=== PATIENT | male | born 1975 | race Caucasian/White ===

== ENCOUNTER → 2018-04-11 | Outpatient (CLI) | payer OTHER | LOC: RT 12:42 | PROVIDERS: ATTEND Surgery | DX: Z02.71 Encounter for disability determination (principal) | CPT/HCPCS: 94060; 94729 ==

== ENCOUNTER → 2020-01-20 | Outpatient (CLI) | payer MEDICAID ==
[~2020-01-20] VITALS: Ht 177 cm; Wt 104.0 kg
[~2020-01-20] MED LIST: CATHETER FLUSH 10 ML SYR IV PRN; REGADENOSON 0.4 MG/5 ML SYR (LEXISCAN) IV ONE
[2020-01-20 09:06] VITALS: BP 117/74
--- NOTE | 2020-01-21 09:37 | STRESS TEST ---
DATE OF SERVICE: 01/20/2020 LEXISCAN MYOVIEW STRESS TEST REPORT REFERRING PHYSICIAN: Skip Lima MD Baseline heart rate 61, baseline blood pressure 114/76. Baseline EKG is sinus rhythm with no ischemic changes. In summary, the patient was injected with 10.96 mCi of technetium-99 Myoview and the resting images were obtained. Then, the patient received 0.4 mg of Lexiscan, followed by 30.2 mCi of technetium-99 Myoview. Throughout the test, there were no EKG changes. Occasional PVCs noted in recovery. The resting and stress images were reviewed and compared in the short axis, horizontal long axis, and vertical long axis views. Review of the images showed mild decreased uptake at the base of the inferior wall with no significant ischemia. SSS is 4, SDS 4, TID value 0.95. On the gated images, the left ventricle appeared to be normal size with mild hypokinesia. Calculated ejection fraction 39%. CONCLUSION: 1. The patient tolerated Lexiscan well. 2. Diaphragmatic attenuation with no significant ischemia or infarction on SPECT images. 3. Normal left ventricular size with mild diffuse left ventricular hypokinesia, calculated ejection fraction 39%. Job ID: [id number] DocumentID: [id number] Dictated Date: 01/20/2020 16:01:59 Disk Recoater Date: 01/20/2020 19:06:13 Dictated By: CIRO TAVERAS MD
== END ==
LOC: CARD 07:27
PROVIDERS: ATTEND Internal Medicine Cardiovascular Disease
DX: R07.9 Chest pain, unspecified (principal); I10 Essential (primary) hypertension; E78.5 Hyperlipidemia, unspecified; J98.6 Disorders of diaphragm
CPT/HCPCS: 78452; 93017

== ENCOUNTER → 2020-01-21 | Outpatient (CLI) | payer MEDICAID | LOC: CARD 11:07 | PROVIDERS: ATTEND Internal Medicine Cardiovascular Disease | DX: I10 Essential (primary) hypertension (principal); E78.5 Hyperlipidemia, unspecified; R07.9 Chest pain, unspecified | CPT/HCPCS: 93306 ==

== ENCOUNTER → 2021-02-27 | Outpatient (CLI) | payer MEDICAID ==
--- NOTE | 2021-02-27 11:57 | Diagnostic Imaging Report ---
INDICATION: Chronic bilateral knee pain. COMPARISON: None. FINDINGS: Multiple radiographic views of the bilateral knees were obtained and demonstrate no acute fracture or dislocation. No focal osseous lesions are seen. No significant joint effusion is seen. The surrounding soft tissue structures are unremarkable. There are no radiopaque foreign bodies. IMPRESSION: 1. Unremarkable radiographic exam of the bilateral knees. Dictated by: Dictated on workstation # [id number]
== END ==
LOC: RAD FS 10:37
PROVIDERS: ATTEND Nurse Practitioner
DX: M25.561 Pain in right knee (principal); M25.562 Pain in left knee

== ENCOUNTER → 2022-05-31 | Outpatient (CLI) | payer MEDICAID | LOC: CARDFS 07:47 | PROVIDERS: ATTEND Physician Assistant | DX: I11.9 Hypertensive heart disease without heart failure (principal) | CPT/HCPCS: 93306 ==

== ENCOUNTER → 2022-07-09 | Outpatient (CLI) | payer MEDICAID ==
[~2022-07-09] VITALS: Ht 177 cm; Wt 91.0 kg
[~2022-07-09] MED LIST changes: -CATHETER FLUSH 10 ML SYR IV PRN
[2022-07-09] MEDS: CATHETER FLUSH 10 ML SYR IVP PRN ×2 (07:49→09:09)
[2022-07-09 09:08] VITALS: BP 135/81
--- NOTE | 2022-07-09 11:52 | Cardiology Stress Test Report ---
Stress Test Report Date of Procedure/Referring: Date of Procedure: Jul 09, 2022 PCP Anatoly Lima MD Admitting Physician Admitting Physician: Attending Physician: Nicol Hughes Indications: HTN Baseline Heart Rate: 74 Baseline Blood Pressure: Blood Pressure Systolic: 135 Blood Pressure Diastolic: 81 Baseline Vitals Vital Signs Date Time Temp Pulse Resp B/P (MAP) Pulse Ox O2 Delivery O2 Flow Rate FiO2 07/09/22 09:08 79 16 135/81 (99) 95 Room Air Baseline EKG: Baseline EKG: NSR Summary After explaining the procedure to the patient, he signed a consent and then brought to the stress nuclear laboratory. Patient received 0.4 mg Lexiscan for stress test, ECG, heart rate and blood pressure were monitored continuously. Resting and stress dose of radio tracer were injected, imaging was acquired and reviewed in short axis, horizontal long axis and vertical long axis views. TID: 1.16 SSS: 7 SDS: 4 EF: 45 1. Patient tolerated Lexiscan well 2. Diaphragmatic attenuation with reversible ischemia involving the mid to apical inferior wall and inferoseptum. 3. Normal left ventricular size, mild hypokinesia of the inferior wall, ejection fraction 45% Copy Copies To 1: ANATOLY LIMA MD, BASHAR J MD Jul 09, 2022 11:52
== END ==
LOC: CARD 08:00
PROVIDERS: ATTEND Physician Assistant
DX: R07.9 Chest pain, unspecified (principal); I10 Essential (primary) hypertension
CPT/HCPCS: 78452; 93017

== ENCOUNTER 2022-07-25 09:00 | Day surgery (SDC) | payer MEDICAID ==
[~2022-07-25] VITALS: Ht 177.8 cm; Wt 99.5 kg
[2022-07-25] VITALS (9 sets, daily range): BP systolic 103–151; BP diastolic 72–93
[2022-07-25 07:59] LABS: HEMATOCRIT 44 % (40-54); HEMOGLOBIN 14.7 g/dL (13.3-17.7); MEAN CORPUSCULAR HEMOGLOBIN 30 pg (25-34); MEAN CORPUSCULAR HGB CONC 33 g/dL (32-36); MEAN CORPUSCULAR VOLUME 89 fL (80-99); MEAN PLATELET VOLUME 11.8 fL (9.0-12.2); PLATELET COUNT 210 10^3/uL (130-400); WHITE BLOOD COUNT 7.3 10^3/uL (4.3-11.0)
[2022-07-25 08:00] LABS: BILIRUBIN,URINE NEGATIVE (NEGATIVE); CLARITY,URINE CLEAR; COLOR,URINE YELLOW; GLUCOSE, URINE (UA) 3+ (NEGATIVE); KETONES,URINE 1+ (NEGATIVE); LEUKOCYTE ESTERASE ,URINE NEGATIVE (NEGATIVE); NITRITE,URINE NEGATIVE (NEGATIVE); PH,URINE 5.5 (5-9); PROTEIN,URINE NEGATIVE (NEGATIVE)
--- NOTE | 2022-07-25 08:06 | Diagnostic Imaging Report ---
Indication: Abnormal cardiac stress test Single AP view of chest is obtained. COMPARISON: No previous study is available for comparison at this time. FINDINGS: Heart size and pulmonary vasculature are within normal limits, and the lungs are clear, bilaterally. There is mild widening of the visible right acromioclavicular joint space. IMPRESSION: Unremarkable chest. Dictated by: Dictated on workstation # [id number]
[2022-07-25 08:15] LABS: BACTERIA,URINE NEGATIVE /HPF
[2022-07-25 08:17] LABS: INR 0.9 (0.8-1.4); PROTHROMBIN TIME PATIENT 12.4 SEC (12.2-14.7)
[2022-07-25 08:23] LABS: BILIRUBIN,TOTAL 0.5 MG/DL (0.1-1.0); CALCIUM 9.4 MG/DL (8.5-10.1); CREATININE SERUM 0.99 MG/DL (0.60-1.30); POTASSIUM 3.7 MMOL/L (3.6-5.0); TOTAL PROTEIN 7.4 GM/DL (6.4-8.2)
[~2022-07-25 09:00] MED LIST changes: +ALBU6.7H8 INH; +ASCO100024 PO; +ASPI-1238 PO; +ATOR10TA66 PO; +CANA1TAB8 PO; +CARV3.122 PO; +CHOL10007 PO; +CYCL10TA25 PO; +GARL10002 PO; +GLBR5T PO; +GLUC1VIA15 IJ; +HEParin (CATH LAB) 2,000 ML IV ONE; +HEParin 1000 UNIT/ML (10ML VIAL) FOR BOLUS ONE; +INSU3INS2 SQ; +LIDOCAINE 1% INJ 20 ML VIAL ONE; +MIDAZOLAM 5 MG/5 ML (VERSED) VIAL ONE; +MONT-40 PO; +NITRO DRIP 25000 MCG/D5W 250 ML IV ONE; +NS IV 1000 ML 1,000 ML IV SCH; +NS IV 1000 ML 1,000 ML ONE; -REGADENOSON 0.4 MG/5 ML SYR (LEXISCAN) IV ONE; +VERAPAMIL 5 MG/2 ML (CALAN) VIAL IV ONE; +fentaNYL INJ 100 MCG/2 ML AMP ONE
--- NOTE | 2022-07-25 09:17 | Cardiac Procedure Note-CS/ASA ---
Pre-Procedure Note Pre-Op Procedure Note Date of Available H&P: Jul 12, 2022 Date H&P Reviewed: Jul 25, 2022 Time H&P Reviewed: 09:16 History & Physical: H&P Reviewed, Patient Examed, No changes noted Pre-Operative Diagnosis: CAD Conscious Sedation Pre-Proced Time 09:17 ASA Score 3 For ASA 3 and 4: Consider anesthesia and medical clearance. Also, for patients with a history of failed moderate sedation consider anesthesia. Airway Lungs Heart ASA score ASA 1: a normal healthy patient ASA 2: a patient with a mild systemic disease (mid diabetes, controlled hypertension, obesity ASA 3: a patient with a severe systemic disease that limits activity (angina, COPD, prior Myocardial infarction) ASA 4: a patient with an incapacitating disease that is a constant threat to life (CHF, renal failure) ASA 5: a moribund patient not expected to survive 24 hrs. (ruptured aneurysm) ASA 6: a declared brain- patient whose organs are being harvested. For emergent operations, add the letter E after the classification Mallampati Classification Grade 3 Sedation Plan Analgesia, Amnesia, Plan communicated to team members, Discussed options with patient/fam, Discussed risks with patient/fam The patient is an appropriate candidate to undergo the planned procedure, sedation, and anesthesia. The patient immediately re-assessed prior to indication. CIRO TAVERAS MD Jul 25, 2022 09:17
[2022-07-25] MEDS ORDERED: ONDANSETRON 4 MG/2 ML (SDV) Z0FRAN ONE (10:01)
--- NOTE | 2022-07-25 10:11 | Discharge Inst-Post CATH ---
Discharge Inst-CATH/EP Problems Reviewed?: Yes Post Cardiac Cath/EP D/C Inst Follow Up/Plan Appointment with Dr. Goldman's office in 2 to 4 weeks <b>CARDIAC CATH/EP PROCEDURE DISCHARGE INSTRUCTIONS</b> ACTIVITY * Go Home directly and rest. * Limit activity of the leg (or wrist if it was used) for 7 days including aer obics, swimming, jogging, bicycling, etc. * Restrict stair-climbing for 7 days if possible, if not, climb up with your non-cath leg, then bring together on the same step. * Avoid lifting, pushing, pulling or excessive movement of the affected extremi ty for 7 days. * Customary sexual activity may be resumed after 2 days-use caution not to use a position that strains or causes pain to the affected extremity. * No driving for 24 hours. * NO SMOKING. * Avoid straining for bowel movements for 7 days. * Gentle walking on level ground is allowed. * Returning to work will depend on the type of procedure and the results. Your doctor will discuss this with you. CALL YOUR DOCTOR FOR ANY OF THE FOLLOWING: *If bleeding from the puncture site occurs- Apply gentle pressure to site with clean cloth and call your doctor or EMS. * If a knot or lump forms under the skin, increases in size, or causes pain. * If bruising appears to be worsening or moving further down your leg instead of disappearing. * Temperature above 101 F. CARE OF YOUR GROIN INCISION; * Bruising or purple discoloration of the skin near the puncture site is common. * You may shower only, no bathtub bathing for 5 days. Be careful to avoid slipping as your leg may feel stiff. * If a closure device was used on your femoral artery, please see the attached guide regarding care of the device and your leg. * Leave dressing on FOR 24 hours. CARE OF YOUR WRIST INCISION; * Bruising or purple discoloration of the skin near the puncture site is common. * You may shower. * DO NOT submerge wrist. * Leave dressing on FOR 24 hours. CIRO GOLDMAN MD Jul 25, 2022 10:11
[2022-07-25] MEDS ORDERED: NS IV 1000 ML 1,000 ML IV SCH (10:15)
--- NOTE | 2022-07-25 10:15 | Cardiac Cath Report ---
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 After explaining the procedure to the patient, all pros and cons were explained, all questions were answered. The patient signed the consent and then he was placed on the cardiac catheterization laboratory. Groin was prepped SL fashion local anesthesia was used. Sheath placed in the right radial artery, [place] catheter was used, I had difficulty advancing the catheter through the aortic arch, and advanced to the left ventricular cavity, pressure was measured then engage the left and right coronary system and angiogram was done. Due to the difficulty in the aortic arch I performed aortic arch angiogram. At the end of the procedure the sheath was removed. Vascular band was used FINDINGS: Hemodynamics LV 105/11, end-diastolic pressure of 11 Aorta 101/69 mean of 72 ANATOMY: Left Main is free of obstructive disease Left Anterior Descending has aneurysmal origin at the distal left main and ostium of the LAD and circumflex artery otherwise mild disease Left Circumflex has aneurysmal origin sharing the distal left main and LAD, mild disease distally Right Coronary Artery is dominant artery with mild disease nonobstructive disease LV Gram was not done, pressure was measured Aorta evaluation showed slightly prominent ascending aorta, no dissection, no aneurysm, normal origin of the brachiocephalic artery left carotid and left subclavian arteries CONCLUSION: 1. 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 Mild disease in the proximal right coronary artery otherwise nonobstructive disease 3. Normal left ventricular end-diastolic pressure 4. Slightly prominent ascending aorta otherwise no dissection or aneurysm DISCUSSION AND RECOMMENDATION: Continue to maximize medical therapy Anesthesia Type: Conscious Sedation Estimated blood loss (mL): 20 ml Contrast Amount: 39 ml Total Radiation Dose: 489 mGy Post-Procedure Diagnosis Post-operative diagnosis: Chest pain Coronary artery disease Hypertension Hyperlipidemia CIRO TAVERAS MD Jul 25, 2022 10:15
== END 2022-07-25 13:00 | disposition home or self-care (01) ==
LOC: CATH 09:00 → SDC 10:31 → CATH 13:00
PROVIDERS: ATTEND Internal Medicine Cardiovascular Disease
DX: I25.10 Atherosclerotic heart disease of native coronary artery without angina pectoris (principal); I10 Essential (primary) hypertension; E78.5 Hyperlipidemia, unspecified; Z79.899 Other long term (current) drug therapy
CPT/HCPCS: 36221; 36415; 71045; 80053; 80061; 81000; 85027; 85610; 85730; 87081; 93005; 93458

== ENCOUNTER → 2022-11-26 | Outpatient (CLI) | payer MEDICAID ==
[~2022-11-26] MED LIST changes: +ALBU6.7H13 INH; -ALBU6.7H8 INH; -HEParin (CATH LAB) 2,000 ML IV ONE; -HEParin 1000 UNIT/ML (10ML VIAL) FOR BOLUS ONE; -LIDOCAINE 1% INJ 20 ML VIAL ONE; -MIDAZOLAM 5 MG/5 ML (VERSED) VIAL ONE; -NITRO DRIP 25000 MCG/D5W 250 ML IV ONE; -NS IV 1000 ML 1,000 ML IV SCH; -NS IV 1000 ML 1,000 ML ONE; -VERAPAMIL 5 MG/2 ML (CALAN) VIAL IV ONE; -fentaNYL INJ 100 MCG/2 ML AMP ONE
--- NOTE | 2022-11-26 17:18 | Diagnostic Imaging Report ---
INDICATION: Chronic left knee pain. TECHNIQUE: AP, oblique, and lateral views of the left knee were obtained. FINDINGS: No fracture or acute bony abnormality is seen. Joint spaces are unremarkable. IMPRESSION: Negative left knee. Dictated by: Dictated on workstation # [id number]
== END ==
LOC: RAD FS 13:11
PROVIDERS: ATTEND Nurse Practitioner
DX: M25.562 Pain in left knee (principal)
CPT/HCPCS: 73562

== ENCOUNTER 2022-12-25 16:14 | Emergency (ER) | payer MEDICAID ==
[~2022-12-25] VITALS: Ht 177.8 cm; Wt 93.4 kg
[2022-12-25] MEDS ORDERED: ASPIRIN 81 MG CHEW (CHILDREN'S ASA) PO ONE (16:30)
[2022-12-25 16:35] LABS: BASOPHILS % (AUTO) 0 % (0-10); EOSINOPHILS # (AUTO) 0.1 10^3/uL (0.0-0.3); EOSINOPHILS % (AUTO) 1 % (0-10); HEMATOCRIT 46 % (40-54); HEMOGLOBIN 15.9 g/dL (13.3-17.7); LYMPHOCYTES # (AUTO) 2.6 10^3/uL (1.0-4.0); LYMPHOCYTES % (AUTO) 32 % (12-44); MEAN CORPUSCULAR HEMOGLOBIN 29 pg (25-34); MEAN CORPUSCULAR HGB CONC 35 g/dL (32-36); MEAN CORPUSCULAR VOLUME 84 fL (80-99); MEAN PLATELET VOLUME 11.8 fL (9.0-12.2); MONOCYTES # (AUTO) 0.5 10^3/uL (0.0-1.0); MONOCYTES % (AUTO) 6 % (0-12); NEUTROPHILS # (AUTO) 4.8 10^3/uL (1.8-7.8); NEUTROPHILS % (AUTO) 60 % (42-75); PLATELET COUNT 269 10^3/uL (130-400)
--- NOTE | 2022-12-25 16:44 | Diagnostic Imaging Report ---
EXAMINATION: Chest radiograph, portable AP view. DATE: 12/25/2022 4:40 PM INDICATION: 47-year-old male, chest pain and dizziness. COMPARISON: July 25, 2022. FINDINGS: Heart size and mediastinal contours are unchanged. There is no identified pneumothorax. There is no large pleural effusion. There is no identified focal airspace consolidation. IMPRESSION: 1. No identified acute cardiopulmonary abnormality. Dictated by: Dictated on workstation # [id number]
[2022-12-25] MEDS ORDERED: NITROGLYCERIN 0.4 MG SL TABS BTL 25'S SL PRN (16:45)
[2022-12-25 16:51] LABS: INR 0.8 (0.8-1.4); PROTHROMBIN TIME PATIENT 11.5 SEC (12.2-14.7)
[2022-12-25 16:52] LABS: BUN/CREATININE RATIO 24; CALCIUM 10.6 MG/DL (8.5-10.1); CARBON DIOXIDE 23 MMOL/L (21-32); CHLORIDE 93 MMOL/L (98-107); CREATININE SERUM 0.95 MG/DL (0.60-1.30); GFR ESTIMATED 98; GLUCOSE 361 MG/DL (70-105); POTASSIUM 4.5 MMOL/L (3.6-5.0); SODIUM 133 MMOL/L (135-145)
[2022-12-25 16:53] LABS: ALANINE AMINOTRANSFERASE 14 U/L (0-55); ALBUMIN 4.8 GM/DL (3.2-4.5); ALKALINE PHOSPHATASE 81 U/L (40-136); BILIRUBIN,TOTAL 0.3 MG/DL (0.1-1.0); TOTAL PROTEIN 8.1 GM/DL (6.4-8.2)
[2022-12-25] MEDS ORDERED: NS IV 1000 ML 1,000 ML IV SCH (17:00)
--- NOTE | 2022-12-25 17:06 | ED Chest Pain ---
General Chief Complaint: Chest Pain Stated Complaint: CHEST PAIN, SOB , BLURRED VISION Nursing Triage Note: Patient states he was loading a shed today and began having sternal chest pain, shortness of breath, and became lightheaded. He reports he had an UT 4 years ago, but did not have any stents placed. He states he had a clean heart cath 4 months ago. He states he had a respiratory illness last week, but feels as though that is improving. He states he is a poorly controlled insulin dependent diabetic. History of Present Illness Date Seen by Provider: Dec 25, 2022 Time Seen by Provider: 16:20 Initial Comments 47-year-old male with PMH of CAD with normal 5 years ago and also [address] Goldman/DM2, uncontrolled (hemoglobin A1c was 11 last he checked), is here with complaints of chest pain, SOB, and lightheadedness which began a little while ago while he was moving a shed. Patient did not take any aspirin or nitro when this occurred. Patient states that his pain is a 8/10 and is constant and retrosternal, and nonradiating. Patient is able to speak in clear sentences without any issues. Denies abdominal pain, diarrhea, dysuria, constipation, palpitations. Patient has been feeling ill the past few days as well and feeling a little under the weather as per patient. Allergies and Home Medications Allergies Coded Allergies: No Known Drug Allergies (Unverified , 07/25/22) Patient Home Medication List Home Medication List Reviewed: Yes Albuterol Sulfate (Proventil Hfa) 90 Mcg Hfa.aer.ad, 2 PUFF INH PRN, (Reported) Entered as Reported by: FALLON MONTOYA on 07/25/22 0807 Ascorbic Acid (Vitamin C) 1,000 Mg Tablet, 1,000 MG PO DAILY, (Reported) Entered as Reported by: FALLON MONTOYA on 07/25/22 0807 Aspirin (Aspirin EC) 81 Mg Tablet.dr, 81 MG PO DAILY, (Reported) Entered as Reported by: FALLON MONTOYA on 07/25/22 0807 Atorvastatin Calcium (Atorvastatin Calcium) 10 Mg Tablet, 10 MG PO HS, (Reported) Entered as Reported by: FALLON MONTOYA on 07/25/22 0807 Canagliflozin/Metformin HCl (Invokamet Xr 150-1,000 mg Tab) 150 Mg-1,000 Mg Tab.bp.24h, 2 EACH PO DAILY, (Reported) Entered as Reported by: FALLON MONTOYA on 07/25/22806 Carvedilol (Carvedilol) 3.125 Mg Tablet, 3.125 MG PO BID, (Reported) Entered as Reported by: FALLON MONTOYA on 07/25/22806 Cholecalciferol (Vitamin D3) (Vitamin D3) 25 Mcg (1000 Unit) Capsule, 25 MCG PO DAILY, (Reported) Entered as Reported by: FALLON MONTOYA on 07/25/22806 Cyclobenzaprine HCl (Cyclobenzaprine HCl) 10 Mg Tablet, 10 MG PO TID PRN for PRN, (Reported) Entered as Reported by: FALLON MONTOYA on 07/25/22806 Garlic (Garlic) 1,000 Mg Capsule, 1,000 MG PO DAILY, (Reported) Entered as Reported by: FALLON MONTOYA on 07/25/22806 Glucagon HCl (Glucagon Emergency Kit) 1 Mg Vial, 1 MG IJ PRN PRN for HYPOGLYCEMIA, (Reported) Entered as Reported by: FALLON MONTOYA on 07/25/22806 Glyburide (Glyburide) 5 Mg Tablet, 10 MG PO DAILY, (Reported) Entered as Reported by: FALLON MONTOYA on 07/25/22806 Insulin Glargine/Lixisenatide (Soliqua 100 Unit-33 Mcg/ml Pen) 100 Unit-33 Mcg/Ml (3 Ml) Insuln.pen, 28 ML SQ DAILY, (Reported) Entered as Reported by: FALLON MONTOYA on 07/25/22806 Montelukast Sodium (Montelukast Sodium) 10 Mg Tablet, 10 MG PO DAILY, (Reported) Entered as Reported by: FALLON MONTOYA on 07/25/22806 Review of Systems Review of Systems Constitutional: no symptoms reported, malaise EENTM: No Symptoms Reported Respiratory: Shortness of Air, SOA With Exertion Cardiovascular: Chest Pain, Lightheadedness Gastrointestinal: No Symptoms Reported Genitourinary: No Symptoms Reported Musculoskeletal: no symptoms reported Skin: no symptoms reported Psychiatric/Neurological: No Symptoms Reported Endocrine: No Symptoms Reported Hematologic/Lymphatic: No Symptoms Reported Past Tqmxnbm-Msejjc-Ienixm Hx Patient Social History Tobacco Use?: No Substance use?: No Alcohol Use?: No Pt feels they are or have been: No Past Medical History Surgery/Hospitalization HX: UT, DM, "lung problem" Appendectomy Currently Using CPAP: No High Cholesterol, Hypertension Physical Exam Vital Signs Vital Signs - First Documented 12/25/22 16:22 Temp 36.7 Pulse 75 Resp 15 B/P (MAP) 131/79 (96) Pulse Ox 100 O2 Delivery Room Air Capillary Refill : Less Than 3 Seconds Height, Weight, BMI Height: '" Weight: lbs. oz. kg; 29.00 BMI Method: General Appearance: Anxious, Mild Distress HEENT: PERRL/EOMI Neck: Full Range of Motion Respiratory: Chest Non Tender, Lungs Clear, Normal Breath Sounds, No Accessory Muscle Use Cardiovascular: Regular Rate, Rhythm, No Edema Gastrointestinal: Normal Bowel Sounds, Non Tender, Soft Extremity: Normal Range of Motion Neurologic/Psychiatric: Alert, Oriented x3, No Motor/Sensory Deficits, Normal Mood/Affect, it risk analyst II-XII Norm as Tested Skin: Normal Color Progress/Results/Core Measures Results/Orders Lab Results Laboratory Tests Test 12/25/22 16:20 12/25/22 16:25 12/25/22 17:40 12/25/22 18:10 Range/Units White Blood Count 8.0 4.3-11.0 10^3/uL Red Blood Count 5.48 4.30-5.52 10^6/uL Hemoglobin 15.9 13.3-17.7 g/dL Hematocrit 46 40-54 % Mean Corpuscular Volume 84 80-99 fL Mean Corpuscular Hemoglobin 29 25-34 pg Mean Corpuscular Hemoglobin Concent 35 32-36 g/dL Red Cell Distribution Width 12.7 10.0-14.5 % Platelet Count 269 130-400 10^3/uL Mean Platelet Volume 11.8 9.0-12.2 fL Immature Granulocyte % (Auto) 1 % Neutrophils (%) (Auto) 60 42-75 % Lymphocytes (%) (Auto) 32 12-44 % Monocytes (%) (Auto) 6 0-12 % Eosinophils (%) (Auto) 1 0-10 % Basophils (%) (Auto) 0 0-10 % Neutrophils # (Auto) 4.8 1.8-7.8 10^3/uL Lymphocytes # (Auto) 2.6 1.0-4.0 10^3/uL Monocytes # (Auto) 0.5 0.0-1.0 10^3/uL Eosinophils # (Auto) 0.1 0.0-0.3 10^3/uL Basophils # (Auto) 0.0 0.0-0.1 10^3/uL Immature Granulocyte # (Auto) 0.0 0.0-0.1 10^3/uL Prothrombin Time 11.5 L 12.2-14.7 SEC INR Comment 0.8 0.8-1.4 Activated Partial Thromboplast Time 23 L 24-35 SEC D-Dimer 0.43 0.00-0.49 UG/ML Sodium Level 133 L 135-145 MMOL/L Potassium Level 4.5 3.6-5.0 MMOL/L Chloride Level 93 L 98-107 MMOL/L Carbon Dioxide Level 23 21-32 MMOL/L Anion Gap 17 H 5-14 MMOL/L Blood Urea Nitrogen 23 H 7-18 MG/DL Creatinine 0.95 0.60-1.30 MG/DL Estimat Glomerular Filtration Rate 98 BUN/Creatinine Ratio 24 Glucose Level 361 H 70-105 MG/DL Calcium Level 10.6 H 8.5-10.1 MG/DL Corrected Calcium 8.5-10.1 MG/DL Magnesium Level 2.0 1.6-2.4 MG/DL Total Bilirubin 0.3 0.1-1.0 MG/DL Aspartate Amino Transf (AST/SGOT) 11 5-34 U/L Alanine Aminotransferase (ALT/SGPT) 14 0-55 U/L Alkaline Phosphatase 81 40-136 U/L Troponin I < 0.30 <0.30 NG/ML Pro-B-Type Natriuretic Peptide 30.5 <125.0 PG/ML Total Protein 8.1 6.4-8.2 GM/DL Albumin 4.8 H 3.2-4.5 GM/DL Influenza Type A (RT-PCR) Not Detected Not Detecte Influenza Type B (RT-PCR) Not Detected Not Detecte SARS-CoV-2 RNA (RT-PCR) Detected H Not Detecte Urine Color YELLOW Urine Clarity CLEAR Urine pH 6.0 5-9 Urine Specific [place] <=1.005 1.016-1.022 Urine Protein NEGATIVE NEGATIVE Urine Glucose (UA) 3+ H NEGATIVE Urine Ketones 1+ H NEGATIVE Urine Nitrite NEGATIVE NEGATIVE Urine Bilirubin NEGATIVE NEGATIVE Urine Urobilinogen 0.2 < = 1.0 MG/DL Urine Leukocyte Esterase NEGATIVE NEGATIVE Urine RBC (Auto) NEGATIVE NEGATIVE Urine RBC NONE /HPF Urine WBC RARE /HPF Urine Squamous Epithelial Cells RARE /HPF Urine Crystals NONE /LPF Urine Bacteria NEGATIVE /HPF Urine Casts NONE /LPF Urine Mucus NEGATIVE /LPF Urine Culture Indicated NO Urine Opiates Screen NEGATIVE NEGATIVE Urine Oxycodone Screen NEGATIVE NEGATIVE Urine Methadone Screen NEGATIVE NEGATIVE Urine Propoxyphene Screen NEGATIVE NEGATIVE Urine Barbiturates Screen NEGATIVE NEGATIVE Ur Tricyclic Antidepressants Screen NEGATIVE NEGATIVE Urine Phencyclidine Screen NEGATIVE NEGATIVE Urine Amphetamines Screen NEGATIVE NEGATIVE Urine Methamphetamines Screen NEGATIVE NEGATIVE Urine Benzodiazepines Screen NEGATIVE NEGATIVE Urine Cocaine Screen NEGATIVE NEGATIVE Urine Cannabinoids Screen NEGATIVE NEGATIVE My Orders Orders - ANUJA NICOLE MD Cbc With Automated Diff (12/25/22 16:16) Magnesium (12/25/22 16:16) Comprehensive Metabolic Panel (12/25/22 16:16) Protime With Inr (12/25/22 16:16) Partial Thromboplastin Time (12/25/22 16:16) Fibrin Degradation Products (12/25/22 16:16) Troponin I Fs (12/25/22 16:16) Probnp Fs (12/25/22 16:16) Drug Screen Stat (Urine) (12/25/22 16:17) Ua Culture If Indicated (12/25/22 16:17) Chest 1 View Ap/Pa Only (12/25/22 16:16) Ekg Tracing (12/25/22 16:16) O2 (12/25/22 16:16) Monitor-Rhythm Ecg Trace Only (12/25/22 16:16) Aspirin Chewable Tablet (Baby Aspirin Ch (12/25/22 16:30) Ed Iv/Invasive Line Start (12/25/22 16:16) Nitroglycerin 0.4 Mg Btl 25's (Nitrostat (12/25/22 16:45) Ed Iv/Invasive Line Start (12/25/22 16:51) Ns Iv 1000 Ml (Sodium Chloride 0.9%) (12/25/22 17:00) Covid 19 Inhouse Test (12/25/22 17:07) Influenza A And B By Pcr (12/25/22 17:07) Troponin I Fs (12/25/22 17:39) Ekg Tracing (12/25/22 17:39) Medications Given in ED Current Medications Medications Dose Ordered Sig/Simón Route Start Time Stop Time Status Last Admin Dose Admin Aspirin 324 mg ONCE ONCE PO 12/25/22 16:30 12/25/22 16:31 DC 12/25/22 16:40 324 MG Nitroglycerin 0.4 mg UD PRN SL 12/25/22 16:45 12/25/22 16:39 0.4 MG Vital Signs/I&O 12/25/22 16:22 Temp 36.7 Pulse 75 Resp 15 B/P (MAP) 131/79 (96) Pulse Ox 100 O2 Delivery Room Air Blood Pressure Mean: 96 Progress Progress Note : Progress Note Patient is leaving AMA. Risks and benefits explained to patient. Patient states that he has a doctor's appointment tomorrow at [facility] and if he develops chest pain again he will go straight to [facility] or tomorrow. Patient refuses to be transferred/admitted to [facility] at this moment. Patient's chest pain has completely resolved 1. COVID POSITIVE: - COVID Test positive - Rapid Flu Test negative - d-dimer normal 2. CHEST PAIN: ACS RULE OUT: - CXR: No acute findings - TROPONIN:x2 undetectable - BNP: normal - CBC: unremarkable - CMP: s. 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 Chest pain may likely be induced/ triggered by COVID . Discussed with hospitalist and accepted for admission, however pt wants to leave AMA Initial ECG Impression Date: Dec 25, 2022 Initial ECG Impression Time: 16:17 Initial ECG Rate: 72 Initial ECG Rhythm: Normal Sinus Initial ECG Intervals: Normal Initial ECG Impression: Nonspecific Changes Initial ECG Comparisson: No Previous ECG Available Diagnostic Imaging Diagonstic Imaging: Xray Plain Films/CT/US/NM/MRI: chest Comments [facility] [place], [place] NAME: ANGELA BENSON [facility] REC#: [id number] PT STATUS: REG ER : 1975 PHYSICIAN: ANUJA NICOLE MD ADMIT DATE: 12/25/22/ER FS Draft Date of Exam:12/25/22 CHEST 1 VIEW AP/PA ONLY EXAMINATION: Chest radiograph, portable AP view. DATE: 12/25/2022 4:40 PM INDICATION: 47-year-old male, chest pain and dizziness. COMPARISON: July 25, 2022. FINDINGS: Heart size and mediastinal contours are unchanged. There is no identified pneumothorax. There is no large pleural effusion. There is no identified focal airspace consolidation. IMPRESSION: 1. No identified acute cardiopulmonary abnormality. Dictated on workstation # [id number] Dict: 12/25/22 1641 Trans: 12/25/22 164 [facility] [id number] Interpreted by: TAMIR PAGE MD Electronically signed by: Departure Communication (Admissions) Time/Spoke to Admitting Phy: 18:[address] Watson, hospitalist and accepted for admission however patient is leaving AMA Impression Primary Impression: SARS-CoV-2 positive Additional Impression: Chest pain Disposition: AGAINST MEDICAL ADVICE Condition: Against Medical Advice Admissions Decision to Admit Reason: Admit from ER (General) Decision to Admit/Date: Dec 25, 2022 Time/Decision to Admit Time: 18:20 Departure-Patient Inst. Referrals: ANATOLY REECE MD (PCP) Primary Care Physician ANUJA NICOLE MD Dec 25, 2022 17:06
[2022-12-25 18:01] LABS: BILIRUBIN,URINE NEGATIVE (NEGATIVE); CLARITY,URINE CLEAR; COLOR,URINE YELLOW; GLUCOSE, URINE (UA) 3+ (NEGATIVE); KETONES,URINE 1+ (NEGATIVE); LEUKOCYTE ESTERASE ,URINE NEGATIVE (NEGATIVE); NITRITE,URINE NEGATIVE (NEGATIVE); PROTEIN,URINE NEGATIVE (NEGATIVE)
[2022-12-25 18:14] LABS: BACTERIA,URINE NEGATIVE /HPF; SQUAMOUS EPITHELIAL CELL,UR RARE /HPF; WBC,URINE RARE /HPF
[2022-12-25 18:15] LABS: AMPHETAMINE SCREEN, URINE NEGATIVE (NEGATIVE); BARBITURATE SCREEN URINE NEGATIVE (NEGATIVE); BENZODIAZEPINES SCREEN URINE NEGATIVE (NEGATIVE); CANNABINOID SCREEN, URINE NEGATIVE (NEGATIVE); COCAINE SCREEN URINE NEGATIVE (NEGATIVE); METHADONE STAT NEGATIVE (NEGATIVE); OPIATE SCREEN URINE NEGATIVE (NEGATIVE); OXYCODONE STAT NEGATIVE (NEGATIVE); PROPOXYPHENE STAT NEGATIVE (NEGATIVE); TRICYCLIC ANTIDEPRESSANTS SCRE NEGATIVE (NEGATIVE)
[2022-12-25 19:30] VITALS: BP 101/65
== END 2022-12-25 19:30 | disposition left against medical advice (07) ==
LOC: EDUNIT# 16:14 → ER FS 16:17
DX: U07.1 COVID-19 (principal); R07.9 Chest pain, unspecified; E11.65 Type 2 diabetes mellitus with hyperglycemia
CPT/HCPCS: 36415; 71045; 80053; 80306; 81000; 83735; 83880; 84484; 85025; 85379; 85610; 85730; 87636; 93005; 93041

== ENCOUNTER 2023-07-24 05:53 | Outpatient (CLI) | payer MEDICAID ==
[~2023-07-24] VITALS: Ht 177.8 cm; Wt 95.5 kg
[2023-07-25] MEDS ORDERED: LISI10TA25 PO (13:20)
[2023-07-25] MEDS ORDERED: PANT40GR PO (13:20)
[2023-07-25] MEDS ORDERED: MELO7.5T46 PO (13:20)
== END 2023-07-25 13:42 | disposition home or self-care (01) ==
LOC: PREOP 05:53
PROVIDERS: ATTEND Orthopaedic Surgery
DX: Z01.818 Encounter for other preprocedural examination (principal)

== ENCOUNTER 2023-07-31 08:09 | Day surgery (SDC) | payer MEDICAID ==
--- NOTE | 2023-07-24 14:41 | HISTORY AND PHYSICAL ---
DATE OF SERVICE: 07/31/2023 ADMISSION HISTORY AND PHYSICAL This will be for outpatient surgery on 07/31/2023 for left knee arthroscopy. HISTORY: The patient is a 48-year-old gentleman with complaints of left anterior and medial knee pain, catching, locking and swelling. He reports pain with kneeling and squatting. He reports pain with twisting. He underwent an MRI which showed posterior horn medial meniscus tear. Due to functional impairment and failure to improve with conservative measures, the patient has elected to proceed with surgical intervention. REVIEW OF SYSTEMS: No chest pain. No shortness of breath. No dysuria. PAST MEDICAL HISTORY: Osteoarthritis, type 2 diabetes, cardiomyopathy and dyspnea. PAST SURGICAL HISTORY: Sinus, appendectomy and cholecystectomy. FAMILY HISTORY: Noncontributory. SOCIAL HISTORY: The patient is a current smoker. ALLERGIES: No known drug allergies. PHYSICAL EXAMINATION: GENERAL: The patient is well-developed, well-nourished, in no acute distress. HEENT: Normocephalic, atraumatic. Pupils equal, round and reactive to light. Oropharynx is clear. NECK: Supple. No lymphadenopathy. LUNGS: Clear to auscultation bilaterally. HEART: Regular rate and rhythm. ABDOMEN: Soft, nontender and nondistended. EXTREMITIES: The left knee demonstrates patellofemoral crepitus and pain with patellar loading. He is tender along his medial joint line and has pain medially with Cate's. No varus or valgus laxity. Negative anterior and posterior drawer. 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 PLAN: Left knee arthroscopy with partial medial meniscectomy and chondroplasty. The risks, benefits, options, ramifications and recovery have been discussed at length with the patient. He understands and wishes to proceed. Job ID: [id number] DocumentID: [id number] Dictated Date: 07/12/2023 13:03:55 Dispatcher Motor Vehicle Date: 07/12/2023 15:09:00 Dictated By: JOSE LIMON MD
[2023-07-31] VITALS (10 sets, daily range): BP systolic 88–129; BP diastolic 48–91
[~2023-07-31] VITALS: Ht 177.8 cm; Wt 95.5 kg
[~2023-07-31 08:09] MED LIST changes: +HYDROcodone/ACETAMINOPHEN 7.5 MG/325 MG TABLET PO PRN; +LISI10TA25 PO; +MELO7.5T46 PO; +PANT40GR PO
[2023-07-31] MEDS ORDERED: ceFAZolin INJECTION 2,000 MG in NS (IVPB) 50 ML 50 ML IV ONE (08:15)
[2023-07-31] MEDS ORDERED: LACTATED RINGERS 1,000 ML 1,000 ML IV PRN (08:15)
--- NOTE | 2023-07-31 09:12 | Progress Note-Pre Operative ---
Pre-Operative Progress Note Date of Available H&P: Jul 24, 2023 Date H&P Reviewed: Jul 31, 2023 Time H&P Reviewed: 09:11 Changes from last HP none Pre-Operative Diagnosis: left knee medial meniscal tear and chondromalacia JOSE LIMON MD Jul 31, 2023 09:12
--- NOTE | 2023-07-31 09:14 | Progress Note-Post Operative ---
Post-Operative Progess Note Surgeon (s)/Manager Commercial Sales (s) Surgeon JOSE LIMON MD Manager Commercial Sales: Goldy Smiley Pre-Operative Diagnosis left knee medial meniscal tear and chondromalacia Post-Operative Diagnosis left knee chondromalacia of the medial femoral condyle and patella Procedure & Operative Findings Date of Procedure 07/31/23 Procedure Performed/Findings left knee arthroscopic chondroplasty of the medial femoral condyle and patella Anesthesia Type GETA Estimated Blood Loss Estimated blood loss (mL): minimal Specimens/Packing Specimens Removed none Packing: none JOSE LIMON MD Jul 31, 2023 09:14
[2023-07-31] MEDS ORDERED: proPOfol INJECTION 200 MG/20 ML VIAL IV ONE (09:47)
[2023-07-31] MEDS ORDERED: ONDANSETRON INJECTION 4 MG/2 ML (SDV) ONE (09:47)
[2023-07-31] MEDS ORDERED: MIDAZOLAM INJ 2 MG/2 ML VIAL ONE (09:47)
[2023-07-31] MEDS ORDERED: SEVOFLURANE (ULTANE) 15 ML INHAL SOLN ONE ×2 (09:47→12:01)
[2023-07-31] MEDS ORDERED: LIDOCAINE PF 2% 5 ML VIAL ONE (09:47)
[2023-07-31] MEDS ORDERED: fentaNYL INJECTION 100 MCG/2 ML VIAL ONE (09:47)
[2023-07-31] MEDS ORDERED: BUPIVACAINE 0.25% 30 ML VIAL ONE (10:00)
[2023-07-31] MEDS ORDERED: morphine PRESERVATIVE free 10 MG/10 ML AMP ONE (10:00)
[2023-07-31] MEDS ORDERED: morphine PRESERVATIVE free 10 MG/10 ML AMP INJ ONE (12:12)
[2023-07-31] MEDS ORDERED: BUPIVACAINE 0.25% 30 ML VIAL INJ ONE (12:13)
[2023-07-31] MEDS ORDERED: ONDANSETRON INJECTION 4 MG/2 ML (SDV) IVP PRN (12:15)
[2023-07-31] MEDS ORDERED: fentaNYL INJECTION 100 MCG/2 ML VIAL IVP ONE (12:15)
--- NOTE | 2023-07-31 14:39 | Physical Therapy Ortho Eval ---
PT Orthopedic Evaluation Type of Surgery Knee Scope Prior Level of Function Current Living Status: Children Locomotion (Upon Admit): Independent Subjective Subjective Patient sitting up in bed upon PT arrival, agreeable to treatment. Patient refused crutches. Nurse reports he has been up and walking around the floor the past 30 minutes. Entry Into Home: Stairs With Railing Steps Into Home: 3 Motor Control Motor Control: Motor Control WNL ROM ROM: WFL, except focal deficit Strength Strength: WFL Transfer SCALE: Activities may be completed with or without assistive devices. 6-Jzisddmygg-xgcutrq completes the activity by him/herself with no assistance from a helper. 5-Set-up or Clean-up Assistance-helper sets up or cleans up; patient completes activity. [place] assists only prior to or following the activity. 4-Supervision or Touching Assistance-helper provides verbal cues and/or touching/steadying and/or contact guard assistance as patient completes activ ity. Assistance may be provided throughout the activity or intermittently. 3-Partial/Moderate Assistance-helper does LESS THAN HALF the effort. [place] lifts, holds or supports trunk or limbs, but provides less than half the effort. 2-Substantial/Maximal Assistance-helper does MORE THAN HALF the effort. [place] lifts or holds trunk or limbs and provides more than half the effort. 2-Vwxfzjtrz-ioqomt does ALL the effort. Patient does none of the effort to complete the activity. Or, the assistance of 2 or more helpers is required for the patient to complete the activity. If activity was not attempted, code reason: 7-Patient Refused. 9-Not Applicable-not attempted and the patient did not perform the activity before the current illness, exacerbation or injury. 10-Not Attempted due to Environmental Limitations-(lack of equipment, weather restraints, etc.). 88-Not Attempted due to Medical Conditions or Safety Concerns. Transfers (B, C, W/C) (QC): 6 Gait Gait Assistive Device: None Right Lower Extremity: Right Weight Bearing Status RLE: Weight Bearing/Tolerated Left Lower Extremity: Left Weight Bearing Status LLE: Full Weight Bearing Treatment Rendered Treatment: Gait Train, Step Train Exercise Instruction: Quad Sets, Straight Leg Raise, Heel Slides Assessment/Goals Goal Time Frame: 1 Visit Understands HEP: Yes Safe Ambulation: Yes Plan Treatment Plan: Discharge Time Time In: 1325 Time Out: 1330 Total Billed Treatment Time: 5 Billed Treatment Time Visit, No Charge ARUNA CALDWELL PT Jul 31, 2023 14:39
--- NOTE | 2023-07-31 20:05 | OPERATIVE REPORT ---
DATE OF SERVICE: 07/31/2023 PREOPERATIVE DIAGNOSIS: Left knee medial meniscus tear. POSTOPERATIVE DIAGNOSES: 1. Left knee chondromalacia of medial femoral condyle. 2. Left knee chondromalacia of the patella. PROCEDURES: 1. Left knee arthroscopic chondroplasty of the medial femoral condyle. 2. Left knee arthroscopic chondroplasty of the patella. SURGEON: Virgil Limon MD [employer] MEMBER: Goldy Smiley, who assisted throughout the procedure and closed the incisions. ANESTHESIA: General endotracheal by Hillary Brown CRNA. TOURNIQUET TIME: Not applicable. ESTIMATED BLOOD LOSS: Minimal. DRAINS: None. COMPLICATIONS: None. POSTOPERATIVE PLAN: Routine arthroscopy protocol. The patient was transferred to the recovery room awake and stable condition. STATEMENT OF MEDICAL NECESSITY: The patient is a 48-year-old gentleman with complaints of left medial knee pain, catching, locking and swelling. He is tender along his medial joint line and pain medially with Cate's. He had undergone treatment with activity modifications and rest without relief. Due to functional impairment and failure to improve with conservative measures, the patient elected to proceed with surgical intervention. Examination under anesthesia revealed range of motion of 0/0/135 with negative Thiago, negative anterior and posterior drawer. No varus or valgus laxity, negative pivot shift. ARTHROSCOPIC FINDINGS: The patella demonstrated grade III chondral flap centrally in a 15 x 15 area. The trochlea demonstrated no significant chondral abnormalities. The medial and lateral gutters were clear. The ACL and PCL were intact. The lateral compartment demonstrated no meniscal or chondral pathology. The medial compartment demonstrated grade II chondral flaps of the central portion of the femoral epicondyle in a 20 x 20 area. No meniscal pathology was noted. DESCRIPTION OF PROCEDURE: After risks and benefits of the procedure were discussed and questions were answered, informed consent was signed and placed on chart. The operative site was confirmed in the preoperative holding area initialed by the surgeon. The patient was then transferred to the operating room and after adequate levels of general endotracheal anesthetic were obtained, a timeout was called, confirming the operative site. Examination under anesthesia was performed with the above findings noted. The left lower extremity was prepped and draped in the usual sterile fashion. The knee joint was injected with 60 mL of fluid and standard inferolateral portal was placed with arthroscope and direct visualization, an inferior medial portal was created. The menisci cruciates carefully probed with above findings noted. The unstable chondral flaps in the patella were debrided with a shaver back to a stable edge. Scope was then redirected into the medial compartment where the unstable chondral flaps in the medial femoral condyle were debrided with a shaver back to a stable edge. The knee was copiously irrigated. The portal sites were closed with 4-0 nylon in simple interrupted fashion. Knee was injected with Duramorph. The port sites were infiltrated with plain Marcaine. A soft dressing was applied. The patient was transported to the recovery room awake and stable condition. Job ID: [id number] DocumentID: [id number] Dictated Date: 07/31/2023 12:08:57 Administrative Services Coordinator Date: 07/31/2023 20:03:00 Dictated By: VIRGIL LIMON MD
== END 2023-07-31 13:30 ==
LOC: SDC 08:09
PROVIDERS: ATTEND Orthopaedic Surgery
DX: S83.242A Other tear of medial meniscus, current injury, left knee, initial encounter (principal); M22.42 Chondromalacia patellae, left knee
CPT/HCPCS: 87081

== ENCOUNTER 2023-08-30 12:37 | Inpatient (IN) | payer MEDICAID ==
[~2023-08-30] VITALS: Ht 177.8 cm; Wt 90.8 kg
[~2023-08-30 12:37] MED LIST changes: -HYDROcodone/ACETAMINOPHEN 7.5 MG/325 MG TABLET PO PRN
[2023-08-30 13:10] LABS: BASOPHILS # (AUTO) 0.1 10^3/uL (0.0-0.1); BASOPHILS % (AUTO) 0 % (0-10); EOSINOPHILS % (AUTO) 0 % (0-10); HEMATOCRIT 51 % (40-54); HEMOGLOBIN 16.2 g/dL (13.3-17.7); LYMPHOCYTES % (AUTO) 5 % (12-44); MEAN CORPUSCULAR HEMOGLOBIN 29 pg (25-34); MEAN CORPUSCULAR HGB CONC 32 g/dL (32-36); MEAN CORPUSCULAR VOLUME 91 fL (80-99); MEAN PLATELET VOLUME 11.2 fL (9.0-12.2); MONOCYTES # (AUTO) 1.7 10^3/uL (0.0-1.0); MONOCYTES % (AUTO) 8 % (0-12); NEUTROPHILS # (AUTO) 17.7 10^3/uL (1.8-7.8); NEUTROPHILS % (AUTO) 86 % (42-75); PLATELET COUNT 271 10^3/uL (130-400); WHITE BLOOD COUNT 20.6 10^3/uL (4.3-11.0)
[2023-08-30 13:12] LABS: BILIRUBIN,URINE 1+ (NEGATIVE); CLARITY,URINE CLEAR; COLOR,URINE YELLOW; GLUCOSE, URINE (UA) 3+ (NEGATIVE); KETONES,URINE 3+ (NEGATIVE); LEUKOCYTE ESTERASE ,URINE NEGATIVE (NEGATIVE); NITRITE,URINE NEGATIVE (NEGATIVE); PH,URINE 5.5 (5-9); PROTEIN,URINE TRACE (NEGATIVE)
[2023-08-30] MEDS: NS IV 1000 ML 1,000 ML IV SCH ×2 (13:12→14:02)
[2023-08-30 13:14] LABS: BACTERIA,URINE MODERATE /HPF
[2023-08-30] MEDS ORDERED: ONDANSETRON INJECTION 4 MG/2 ML (SDV) IVP ONE (13:15)
--- NOTE | 2023-08-30 13:22 | Diagnostic Imaging Report ---
EXAMINATION: Chest 1 view HISTORY: Shortness of breath. Weakness. COMPARISON: 12/25/2022. FINDINGS: The lung volumes are normal. No focal consolidation is seen. No large pleural effusion or pneumothorax is seen. The cardiomediastinal silhouette is normal in size and contour. No acute osseous abnormality is seen. IMPRESSION: 1. No acute pleuroparenchymal process. Dictated by: Dictated on workstation # [id number]
[2023-08-30 13:25] LABS: PROTHROMBIN TIME PATIENT 13.6 SEC (12.2-14.7)
[2023-08-30 13:42] LABS: CHLORIDE 86 MMOL/L (98-107); POTASSIUM 5.5 MMOL/L (3.6-5.0)
[2023-08-30 13:43] LABS: ALANINE AMINOTRANSFERASE 73 U/L (0-55); ALBUMIN 4.5 GM/DL (3.2-4.5); ALKALINE PHOSPHATASE 137 U/L (40-136); BILIRUBIN,TOTAL 0.7 MG/DL (0.1-1.0); BUN/CREATININE RATIO 30; CALCIUM 9.9 MG/DL (8.5-10.1); CREATININE SERUM 1.34 MG/DL (0.60-1.30); GFR ESTIMATED 65; GLUCOSE 305 MG/DL (70-105); LIPASE 21 U/L (8-78)
[2023-08-30 13:46] LABS: CARBON DIOXIDE 7 MMOL/L (21-32); SODIUM 123 MMOL/L (135-145)
[2023-08-30 13:50] LABS: LYMPHOCYTES % (MANUAL) 9 %; MONOCYTES % (MANUAL) 8 %; NEUTROPHILS % (MANUAL) 83 %
--- NOTE | 2023-08-30 13:53 | Diagnostic Imaging Report ---
PROCEDURE: CT abdomen and pelvis without contrast. TECHNIQUE: Multiple contiguous axial images were obtained through the abdomen and pelvis without the use of intravenous contrast. Auto Exposure Controls were utilized during the CT exam to meet ALARA standards for radiation dose reduction. INDICATION: Left upper quadrant abdominal pain. Nausea and vomiting. COMPARISON: None. FINDINGS: Examination is limited by respiratory motion at multiple levels of the exam. The axial images of the pelvis were also not provided. Diffuse gallbladder wall thickening. No obstructing lesions are identified. No cholelithiasis. The liver, pancreas, spleen, adrenals, kidneys, collecting systems, and urinary bladder demonstrate no acute findings. No evidence of appendicitis. No free intraperitoneal air or fluid. No lymphadenopathy. No evidence of bowel obstruction. No acute osseous findings. IMPRESSION: Diffuse gallbladder wall thickening suspicious for cholecystitis. No cholelithiasis or obstructing lesions are identified. This could be further investigated with ultrasound. Dictated by: Dictated on workstation # [id number]
--- NOTE | 2023-08-30 14:00 | ED GI ---
General Chief Complaint: Abdominal/GI Problems Stated Complaint: VOMITING; GEN WEAKNESS Nursing Triage Note: PT ARRIVES ROOM 6 C/O N/V, SOB, FEVER, AND DIZZINESS STARTING ON THE . PT DOES NOT APPEAR TO BE IN RESPIRATORY DISTRESS AT THIS TIME. Source of Information: Patient, Family (Son) History of Present Illness Date Seen by Provider: Aug 30, 2023 Time Seen by Provider: 12:55 Initial Comments 48-year-old male patient with history of arthritis, GERD, insulin-dependent diabetes mellitus, hypertension, hyperlipidemia, cardiomyopathy presented POV with his son because of nausea and vomiting and abdominal pain. Patient complaining of 2-3 episodes of nonbloody vomiting per day for the last 4 days associated with left upper quadrant sharp pain without radiation and rated his pain 3- 4/10. Patient states the pain getting worse with movement. Patient complaining of shortness of breath with activity and generalized weakness and dizziness. Patient stated he was not able to eat or drink or taking his medication. Patient complaining of subjective fever, cough after vomiting, nasal congestion and urinary frequency without dysuria. Patient denies diarrhea, chest pain, sick contact, headache, muscle cramps. Patient did not take any pain medication and did not want to have pain medication at arrival to ER Allergies and Home Medications Allergies Coded Allergies: No Known Drug Allergies (Unverified , 08/30/23) Patient Home Medication List Home Medication List Reviewed: Yes Albuterol Sulfate (Proventil Hfa) 90 Mcg Hfa.aer.ad, 2 PUFF INH PRN, (Reported) Entered as Reported by: FALLON MONTOYA on 07/25/22 08 Ascorbic Acid (Vitamin C) 1,000 Mg Tablet, 1,000 MG PO DAILY, (Reported) Entered as Reported by: FALLON MONTOYA on 07/25/22 08 Aspirin (Aspirin EC) 81 Mg Tablet.dr, 81 MG PO DAILY, (Reported) Entered as Reported by: FALLON MONTOYA on 07/25/22 08 Atorvastatin Calcium (Atorvastatin Calcium) 10 Mg Tablet, 10 MG PO HS, (Reported) Entered as Reported by: FALLON MONTOYA on 07/25/22 08 Canagliflozin/Metformin HCl (Invokamet Xr 150-1,000 mg Tab) 150 Mg-1,000 Mg Tab.bp.24h, 2 EACH PO DAILY, (Reported) Entered as Reported by: FALLON MONTOYA on 07/25/22 08 Cholecalciferol (Vitamin D3) (Vitamin D3) 25 Mcg (1000 Unit) Capsule, 25 MCG PO DAILY, (Reported) Entered as Reported by: FALLON MONTOYA on 07/25/22 08 Garlic (Garlic) 1,000 Mg Capsule, 1,000 MG PO DAILY, (Reported) Entered as Reported by: FALLON MONTOYA on 07/25/22 08 Glucagon HCl (Glucagon Emergency Kit) 1 Mg Vial, 1 MG IJ PRN PRN for HYPOGLYCEMIA, (Reported) Entered as Reported by: FALLON MONTOYA on 07/25/22 08 Insulin Glargine/Lixisenatide (Soliqua 100 Unit-33 Mcg/ml Pen) 100 Unit-33 Mcg/Ml (3 Ml) Insuln.pen, 28 ML SQ DAILY, (Reported) Entered as Reported by: FALLON MONTOYA on 07/25/22 08 Lisinopril (Lisinopril) 10 Mg Tablet, 10 MG PO DAILY, (Reported) Entered as Reported by: Kate Parmar on 07/25/23 132 Meloxicam (Meloxicam) 7.5 Mg Tablet, 7.5 MG PO, (Reported) Entered as Reported by: Kate Parmar on 07/25/23 132 Montelukast Sodium (Montelukast Sodium) 10 Mg Tablet, 10 MG PO DAILY, (Reported) Entered as Reported by: FALLON MONTOYA on 07/25/22 08 Pantoprazole Sodium (Pantoprazole Sodium) 40 Mg Granpkt.dr, 40 MG PO, (Reported) Entered as Reported by: Kate Parmar on 07/25/23 132 Review of Systems Review of Systems Constitutional: see HPI, dizziness, fever, malaise EENTM: See HPI, Nose Congestion Respiratory: See HPI, Cough, Shortness of Air Gastrointestinal: See HPI, Abdominal Pain, Nausea, Poor Appetite, Vomiting Genitourinary: No Symptoms Reported Musculoskeletal: see HPI Skin: no symptoms reported Psychiatric/Neurological: No Symptoms Reported Endocrine: No Symptoms Reported Hematologic/Lymphatic: No Symptoms Reported All Other Systems Reviewed Negative Unless Noted: Yes Past Pmsfykd-Hgubgn-Amemdq Hx Patient Social History Tobacco Use?: No Use of E-Cig and/or Vaping dev: No Substance use?: No Alcohol Use?: No Pt feels they are or have been: No Immunizations Up To Date Influenza Vaccine Up-to-Date: Yes; Up-to-Date First/Initial COVID19 Vaccinat: not vacc Seasonal Allergies Seasonal Allergies: Yes Past Medical History Surgery/Hospitalization HX: IDDM- ON ORALS, HTN, GERD, HIGH CHOLESTEROL KNEE SCOPE Surgeries: Yes Appendectomy, Ear Surgery, Gallbladder, Tonsillectomy Respiratory: Yes Currently Using CPAP: No Currently Using BIPAP: No Cardiac: Yes Cardiomyopathy, High Cholesterol, Hypertension, Irregular Heartbeat Neurological: No Genitourinary: No Gastrointestinal: Yes (CONTROLLED WITH MEDICATION) Gastroesophageal Reflux Musculoskeletal: Yes Arthritis Endocrine: Yes Diabetes, Insulin dep HEENT: No Cancer: No Psychosocial: No Integumentary: No Blood Disorders: No Adverse Reaction/Blood Tranf: No Physical Exam Vital Signs Vital Signs - First Documented 08/30/23 12:55 Temp 36.5 Pulse 106 Resp 16 B/P (MAP) 152/75 (100) Pulse Ox 100 O2 Delivery Room Air Capillary Refill : Less Than 3 Seconds Height/Weight/BMI Height: '" Weight: lbs. oz. kg; 30.00 BMI Method: General Appearance: mild distress HEENT: PERRL/EOMI, other (Dry oral mucosa) Neck: non-tender, full range of motion, supple Respiratory: chest non-tender, lungs clear, normal breath sounds, no respiratory distress Cardiovascular: normal peripheral pulses, no edema, no gallop, tachycardia Gastrointestinal: normal bowel sounds, non tender, soft, no organomegaly Extremities: normal range of motion, non-tender, normal inspection, no pedal e bishnu Back: normal inspection, no CVA tenderness Neurologic/Psychiatric: alert, normal mood/affect, oriented x 3 Skin: normal color, warm/dry Lymphatic: no adenopathy Focused Exam Lactate Level 08/30/23 12:55: Lactic Acid Level 2.25*H Lactic Acid Level Laboratory Tests Test 08/30/23 12:55 Lactic Acid Level 2.25 MMOL/L (0.50-2.00) *H Progress/Results/Core Measures Results/Orders Lab Results Laboratory Tests Test 08/30/23 12:40 08/30/23 12:53 08/30/23 12:55 10/13/23 13:50 Range/Units Urine Color YELLOW Urine Clarity CLEAR Urine pH 5.5 5-9 Urine Specific [place] 1.025 H 1.016-1.022 Urine Protein TRACE H NEGATIVE Urine Glucose (UA) 3+ H NEGATIVE Urine Ketones 3+ H NEGATIVE Urine Nitrite NEGATIVE NEGATIVE Urine Bilirubin 1+ H NEGATIVE Urine Urobilinogen 0.2 < = 1.0 MG/DL Urine Leukocyte Esterase NEGATIVE NEGATIVE Urine RBC (Auto) 1+ H NEGATIVE Urine RBC 2-5 H /HPF Urine WBC NONE /HPF Urine Squamous Epithelial Cells 2-5 /HPF Urine Crystals NONE /LPF Urine Bacteria MODERATE H /HPF Urine Casts PRESENT /LPF Urine Granular Casts 2-5 H /LPF Urine Mucus NEGATIVE /LPF Urine Culture Indicated YES Glucometer 305 H 70-110 MG/DL White Blood Count 20.6 H 4.3-11.0 10^3/uL Red Blood Count 5.60 H 4.30-5.52 10^6/uL Hemoglobin 16.2 13.3-17.7 g/dL Hematocrit 51 40-54 % Mean Corpuscular Volume 91 80-99 fL Mean Corpuscular Hemoglobin 29 25-34 pg Mean Corpuscular Hemoglobin Concent 32 32-36 g/dL Red Cell Distribution Width 12.9 10.0-14.5 % Platelet Count 271 130-400 10^3/uL Mean Platelet Volume 11.2 9.0-12.2 fL Immature Granulocyte % (Auto) 1 % Neutrophils (%) (Auto) 86 H 42-75 % Lymphocytes (%) (Auto) 5 L 12-44 % Monocytes (%) (Auto) 8 0-12 % Eosinophils (%) (Auto) 0 0-10 % Basophils (%) (Auto) 0 0-10 % Neutrophils # (Auto) 17.7 H 1.8-7.8 10^3/uL Lymphocytes # (Auto) 1.0 1.0-4.0 10^3/uL Monocytes # (Auto) 1.7 H 0.0-1.0 10^3/uL Eosinophils # (Auto) 0.0 0.0-0.3 10^3/uL Basophils # (Auto) 0.1 0.0-0.1 10^3/uL Immature Granulocyte # (Auto) 0.2 H 0.0-0.1 10^3/uL Neutrophils % (Manual) 83 % Lymphocytes % (Manual) 9 % Monocytes % (Manual) 8 % Prothrombin Time 13.6 12.2-14.7 SEC INR Comment 1.0 0.8-1.4 Activated Partial Thromboplast Time 25 24-35 SEC Sodium Level 123 *L 135-145 MMOL/L Potassium Level 5.5 H 3.6-5.0 MMOL/L Chloride Level 86 L 98-107 MMOL/L Carbon Dioxide Level 7 *L 21-32 MMOL/L Anion Gap 30 H 5-14 MMOL/L Blood Urea Nitrogen 40 H 7-18 MG/DL Creatinine 1.34 H 0.60-1.30 MG/DL Estimat Glomerular Filtration Rate 65 BUN/Creatinine Ratio 30 Glucose Level 305 H 70-105 MG/DL Lactic Acid Level 2.25 *H 0.50-2.00 MMOL/L Calcium Level 9.9 8.5-10.1 MG/DL Corrected Calcium 9.5 8.5-10.1 MG/DL Total Bilirubin 0.7 0.1-1.0 MG/DL Aspartate Amino Transf (AST/SGOT) 26 5-34 U/L Alanine Aminotransferase (ALT/SGPT) 73 H 0-55 U/L Alkaline Phosphatase 137 H 40-136 U/L Troponin I < 0.30 <0.30 NG/ML Total Protein 9.0 H 6.4-8.2 GM/DL Albumin 4.5 3.2-4.5 GM/DL Lipase 21 8-78 U/L Influenza Type A (RT-PCR) Not Detected Not Detecte Influenza Type B (RT-PCR) Not Detected Not Detecte SARS-CoV-2 RNA (RT-PCR) Not Detected Not Detecte Venous Blood pH 7.08 L 7.31-7.41 Venous Blood Partial Pressure CO2 23 L 40-52 MMHG Venous Blood HCO3 7 L 22-28 MMOL/L Test 08/30/23 14:29 Range/Units Glucometer 301 H 70-110 MG/DL My Orders Orders - REDD BONE MD Covid 19 Inhouse Test (08/30/23 13:03) Influenza A And B By Pcr (08/30/23 13:03) Cbc And Automated Diff (08/30/23 13:03) Comprehensive Metabolic Panel (08/30/23 13:03) Protime With Inr (08/30/23 13:03) Partial Thromboplastin Time (08/30/23 13:03) Chest 1 View Ap/Pa Only (08/30/23 13:03) Ed Iv/Invasive Line Start (08/30/23 13:03) Lactic Acid Analyzer (08/30/23 13:03) Ns Iv 1000 Ml (Ns Iv 1000 Ml) (08/30/23 13:15) Lipase (08/30/23 13:03) Ua Culture If Indicated (08/30/23 13:03) Ct Abdomen/Pelvis Wo (08/30/23 13:03) Ondansetron Injection (Ondansetron Inj (08/30/23 13:15) Troponin I Fs (08/30/23 13:05) Manual Differential (08/30/23 12:55) Urine Culture (08/30/23 12:40) Venous Blood Gas (08/30/23 13:45) Blood Culture (08/30/23 13:45) Blood Culture (08/30/23 13:50) Ns Iv 1000 Ml (Ns Iv 1000 Ml) (08/30/23 14:15) Insulin Regular Drip (Insulin Regular Dr (08/30/23 14:15) Ed Admission (Communication) (08/30/23 14:27) Ceftriaxone Iv/Im (Ceftriaxone Iv/Im) (08/30/23 14:45) Accucheck Stat ONCE (08/30/23 14:36) Accucheck Q1hr Q1HR (08/30/23 14:36) Medications Given in ED Current Medications Medications Dose Ordered Sig/Simón Route Start Time Stop Time Status Last Admin Dose Admin Ceftriaxone Sodium 1000 mg/ Sodium Chloride 50 ml @ 100 mls/hr ONCE ONCE IV 08/30/23 14:45 08/30/23 15:14 08/30/23 14:57 100 MLS/HR Insulin Human Regular 100 ml @ 0 mls/hr Q0M ONCE IV 08/30/23 14:15 08/30/23 14:16 DC 08/30/23 14:30 9 MLS/HR Ondansetron HCl 4 mg ONCE ONCE IVP 08/30/23 13:15 08/30/23 13:16 DC 08/30/23 13:12 4 MG Vital Signs/I&O 08/30/23 08/30/23 12:55 12:55 Temp 36.5 Pulse 106 Resp 16 B/P (MAP) 152/75 (100) Pulse Ox 100 O2 Delivery Room Air Room Air Blood Pressure Mean: 100 Progress Progress Note : Progress Note 48-year-old male patient with history of type 2 diabetes mellitus presented POV with complaining of subjective fever, shortness of breath, dizziness, vomiting and left upper quadrant pain. Patient had tachycardia without fever at arrival to ER and was dehydrated. Accu-Chek was 305. CBC, CMP, lipase, troponin, lactic acid, blood culture, COVID test, influenza, chest x-ray, CT abdomen and pelvis, VBG was ordered and reviewed by me. Patient has white count of 20,000 with 86% neutrophils, sodium of 123, chloride of 85, BUN of 40 and creatinine of 1.3, CO2 of 7, mild elevation of liver function test with unremarkable troponin and lipase. pH was 7.08. UA showed 3+ ketones without WBC with moderate bacteria. COVID test was negative. Chest x-ray interpreted by me and did not show acute finding. CT abdomen pelvis interpreted by radiologist and reviewed by me and showed acalculus cholecystitis. Patient treated with normal saline x2 L, insulin drip, Zofran. Insulin bolus was not started because of not very elevated blood sugar. Rocephin was started for acalculus cholecystitis and UTI. Patient and his family informed about test results and plan of care and need for admission and all questions was addressed. Patient did not want any pain medication in ER. On-call hospitalist for [facility] Dr. Alvares was consulted at 1419 and accepted admission at 1422. Diagnostic Imaging Diagonstic Imaging: Xray, CT Plain Films/CT/US/NM/MRI: chest, abdomen, pelvis Comments 1 view chest x-ray interpreted by me and did not show acute finding. 1 view chest x-ray interpreted by radiologist and showed: [facility] [place], [place] NAME: ANGELA BENSON [facility] REC#: [id number] PT STATUS: REG ER : 1975 PHYSICIAN: REDD BONE MD ADMIT DATE: 08/30/23/ER FS Signed Date of Exam:08/30/23 CHEST 1 VIEW AP/PA ONLY EXAMINATION: Chest 1 view HISTORY: Shortness of breath. Weakness. COMPARISON: 12/25/2022. FINDINGS: The lung volumes are normal. No focal consolidation is seen. No large pleural effusion or pneumothorax is seen. The cardiomediastinal silhouette is normal in size and contour. No acute osseous abnormality is seen. IMPRESSION: 1. No acute pleuroparenchymal process. Dictated by: Dictated on workstation # [id number] Dict: 08/30/23 1320 Trans: 08/30/23 132 [facility] [id number] Interpreted by: MONTANA BLACK DO Electronically signed by: MONTANA BLACK DO 08/30/231321 CT abdomen pelvis interpreted by radiologist and reviewed by de and showed: [facility], [place] NAME: ANGELA BENSON [facility] REC#: [id number] PT STATUS: REG ER : 1975 PHYSICIAN: REDD BONE MD ADMIT DATE: 08/30/23/ER FS Signed Date of Exam:08/30/23 CT ABDOMEN/PELVIS WO PROCEDURE: CT abdomen and pelvis without contrast. TECHNIQUE: Multiple contiguous axial images were obtained through the abdomen and pelvis without the use of intravenous contrast. Auto Exposure Controls were utilized during the CT exam to meet ALARA standards for radiation dose reduction. INDICATION: Left upper quadrant abdominal pain. Nausea and vomiting. COMPARISON: None. FINDINGS: Examination is limited by respiratory motion at multiple levels of the exam. The axial images of the pelvis were also not provided. Diffuse gallbladder wall thickening. No obstructing lesions are identified. No cholelithiasis. The liver, pancreas, spleen, adrenals, kidneys, collecting systems, and urinary bladder demonstrate no acute findings. No evidence of appendicitis. No free intraperitoneal air or fluid. No lymphadenopathy. No evidence of bowel obstruction. No acute osseous findings. IMPRESSION: Diffuse gallbladder wall thickening suspicious for cholecystitis. No cholelithiasis or obstructing lesions are identified. This could be further investigated with ultrasound. Dictated by: Dictated on workstation # [id number] Dict: 08/30/23 1342 Trans: 08/30/23 1452 [id number] Interpreted by: NICHELLE IBRAHIM MD Electronically signed by: NICHELLE IBRAHIM MD 08/30/23 [id number] Critical Care Note Critical Care Start Time: 12:55 Stop Time: 14:30 Total Time (minutes) 95 minutes Progress Critical care time of 95 minutes for taking history and examination of the patient, ordering and reviewing labs, ordering medication, ordering and reviewing imaging, reevaluation of the patient and make decision for admission, talking to hospitalist, talking to the patient and his family, adding more ordered for treatment of DKA. Departure Communication (Admissions) Time/Spoke to Admitting Phy: 14:19 Dr. Alvares accepted admission to ICU at 1422. Impression Primary Impression: DKA (diabetic ketoacidosis) Qualified Codes: E11.10 - Type 2 diabetes mellitus with ketoacidosis without coma Additional Impressions: Hyponatremia Nausea and vomiting Qualified Codes: R11.2 - Nausea with vomiting, unspecified Elevated liver function tests Acalculous cholecystitis Acute renal insufficiency Urinary tract infection Qualified Codes: N39.0 - Urinary tract infection, site not specified; R31.9 - Hematuria, unspecified Elevated lactic acid level Hypochloremia Hyperkalemia Disposition: 30 STILL A PATIENT Condition: Improved Admissions Decision to Admit Reason: Admit from ER (General) Decision to Admit/Date: Aug 30, 2023 Time/Decision to Admit Time: 14:22 Departure-Patient Inst. Referrals: ANATOLY REECE MD (PCP) Primary Care Physician REDD BONE MD Aug 30, 2023 14:00
[2023-08-30] MEDS ORDERED: NS IV 1000 ML 1,000 ML IV SCH ×2 (14:15→16:15)
[2023-08-30] MEDS ORDERED: cefTRIAXone IV/IM 1,000 MG in NS (IVPB) 50 ML 50 ML IV ONE (14:45)
[2023-08-30] MEDS ORDERED: POTASSIUM CL 10MEQ/50ML IVPB 50 ML IV SCH (16:15)
--- NOTE | 2023-08-30 16:20 | History & Physical ---
AMBIKA العراقي MD,RESIDENT 08/30/23 1620: HPI History of Present Illness: CC: "feeling bad for the last week." HPI: Pt is a 48yo male with a medical history significant for insulin-dependent diabetes mellitus who presented to the [facility] ED as he has been feeling progressively worse over the last week. He reports that he has not taking any of his medications in about 4 days as he has felt "too weak". He also has decreased PO intake during this time as well. He denies EtOH, illicit substance, or tobacco smoking, however he does chew tobacco. He states that he has also not been able to do this in the last week due to the way he felt. He reports worsening nausea and vomiting, tremors of BL arms, loss of balance, headaches and dizziness. He denies extensive cardiac history, however he is seen by Dr. Goldman. Initial labs indicate DKA state, he will be admitted to ICU for further management. Source: patient Time Seen by Provider: 16:50 Attending Physician Skip Lima MD PCP Admitting Physician: Laura Alvares MD Attending Physician: Laura Alvares MD Consult Date of Admission Aug 30, 2023 at 15:58 Home Medications Home Medications Reviewed patient Home Medication Reconciliation performed by pharmacy medication reconciliations marine fisheries technician and/or nursing. Patients Allergies have been reviewed. Allergies Coded Allergies: No Known Drug Allergies (Unverified , 08/30/23) IVR-Zeodrh-Ddkdqi Hx Patient Social History Alcohol Use?: No Immunizations Up To Date Influenza Vaccine Up-to-Date: Yes; Up-to-Date First/Initial COVID19 Vaccinat: not vacc Review of Systems ([facility]) Constitutional: dizziness, malaise, weakness EENTM: double vision Respiratory: dyspnea on exertion Cardiovascular: no symptoms reported Gastrointestinal: abdominal pain, loss of appetite, nausea Genitourinary: frequency Skin: no symptoms reported Psychiatric/Neurological: Tremors, Weakness Physical Exam-([facility]) Physical Exam Vital Signs VS - Last 72 Hours, by Label 08/30/23 08/30/23 08/30/23 08/30/23 12:55 12:55 15:05 16:00 Temp 36.5 36.4 36.5 Pulse 106 99 80 Resp 16 16 18 B/P (MAP) 152/75 (100) 135/72 132/69 (90) Pulse Ox 100 100 96 O2 Delivery Room Air Room Air Room Air Room Air 08/30/23 08/30/23 16:07 17:00 Pulse 89 81 Resp 18 B/P (MAP) 125/70 (88) Pulse Ox 99 O2 Delivery Room Air Capillary Refill : Less Than 3 Seconds General Appearance: no apparent distress Eyes: Bilateral Eye EOMI Neck: full range of motion Respiratory: lungs clear, normal breath sounds, no respiratory distress, no accessory muscle use Cardiovascular: regular rate, rhythm Peripheral Pulses: 2+ Dorsalis Pedis (R) Gastrointestinal: non tender, soft Extremities: no calf tenderness Neurologic/Psychiatric: alert, normal mood/affect, oriented x 3 Skin: other (Multiple insect bite-appearing lesions over BL LE) Lymphatic: no adenopathy Assessment/Plan Assessment/Plan Admission Dx DKA Admission Status: Observation Reason for Inpatient Admission: DKA (1) DKA (diabetic ketoacidosis) Assessment & Plan: AG 30 LA 2.25 UA: 3+ ketones, 3+ glucose Glucose on admission 305 PLAN: DKA protocol: insulin gtt q4 BMP D5 1/2 NS when glucose < 250 Will start bridge to Detemir when AG closed, glucose with appropriate drop Qualifiers: Qualified Codes: E11.10 - Type 2 diabetes mellitus with ketoacidosis without coma (2) Insulin dependent type 2 diabetes mellitus Assessment & Plan: FEEDER TENDER medications: Invokamet 150-100 mg + insulin glargine 100U-33mcg Pt has not taken home medications in at least 4 days PLAN: Continue DKA protocol (3) Hyperkalemia Status: Acute Assessment & Plan: 5.5 on admission PLAN: Maintain >3 with KCL IV q4 BMP (4) Hypochloremia Status: Acute Assessment & Plan: Cl on admission 86 PLAN: Replete with NaCl IVF q4 BMP (5) Hyponatremia Status: Acute Assessment & Plan: Na 123 on admission PLAN: Replete with NS IVF q4 BMP (6) Acute renal insufficiency Status: Acute Assessment & Plan: Likely 2/2 intravascular volume depletion Cr 1.34-->1.7 PLAN: Avoid nephrotoxic agents IVF Daily BMP (7) Nausea and vomiting Status: Acute Assessment & Plan: Pt reports N/V for the last 4 days intermittently PLAN: Zofran 4mg q4 PRN Qualifiers: Qualified Codes: R11.2 - Nausea with vomiting, unspecified (8) Elevated lactic acid level Status: Acute Assessment & Plan: LA 2.5 on admission PLAN: Trend LA (9) Cholecystitis Assessment & Plan: Incidental finding on CT abdpelv 08/30: Diffuse gallbladder wall thickening suspicious for cholecystitis. No cholelithiasis or obstructing lesions are identified. This could be further investigated with ultrasound. Pts abdominal pain generalized PLAN: Consider RUQ US when DKA under control (10) HTN (hypertension) Assessment & Plan: PLAN: Consider resuming FE[employer]ER TENDER lisinopril 10 mg when stabilized (11) GERD (gastroesophageal reflux disease) Assessment & Plan: PLAN: Will resume [employer] T[employer]ER protonix 40 mg q24 when stablized LAURA ALVARES MD 08/30/23 2009: Home Medications Allergies Coded Allergies: No Known Drug Allergies (Unverified , 08/30/23) Assessment/Plan Assessment/Plan Assessment & Plan Pt admitted to the hospital with DKA. 3-4 day history of feeling poorly. Complaints of abd pain and inability to eat or drink much so hasn't been taking his normal insulin. Denies a history of DKA in the past and reports normally compliant with insulin regimen. Found to be in DKA by the ER and admitted for IV insulin gtt and DKA protocol. BS improving on arrival here on insulin gtt. Reviewed CT report and concerning for cholecystisis. Exam does not suggest an acute abd. Soft, nontender and no rebound. Marks's sign negative. Spoke with Dr Menendez regarding case. Will escalate abx to Zosyn from Rocephin given in the ER. Will get usg in the AM and check CMP in the AM. Will also make NPO after midnight as well. Does have mild VANNA so will continue IVF and monitor I/Os. Na low as well, corrects to 128. Reviewed old labs and had been 133 recently. Likely multtifactorial from hypovolemia and hyperglycemia. Trend electrolytes. eICU consulted as well. A1c pending. AMBIKA العراقي MD,RESIDENT Aug 30, 2023 16:20 LAURA ALVARES MD Aug 30, 2023 20:09
--- NOTE | 2023-08-30 16:28 | Tele-ICU Progress Note ---
Subjective Date Seen by a Provider: Aug 30, 2023 Subjective/Events-last exam This virtual visit was conducted using real time audio/video. Thank you for asking us to see this patient for critical care services due to DKA, acalculous cholecystitis, VANNA and possible UYI. PE: VSS. O2 sat 100% on RA. Appears comfortable. HEENT: No obvious masses, adenopathy or JVD. Chest: clear to auscultation. CV: RRR S1 S2 No murmur or added sounds. Abd: Non-tender. Bowel sounds Y. : Unremarkable. 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 No obvious focal findings. Extremities: No edema. Capillary refill < 3 seconds. Skin: unremarkable. Results: Elevated K 5.5, BUN 40, Creat 1.34, BG 3905, AG 30, Lact 2.25, WCC 20.6. Decreased Na 123. CXR: .clear. Available chart/ vitals / labs / images reviewed. Video assessment done using teleICU camera, rest of exam as per RN. A/P: Critical Care: critically ill patient. Cont. IV insulin, IVF, Rocephin. Discussed with ANTHONY Orta. Asked RN to reach out to eICU if any questions or concerns later. Time spent with patient/coordination of care with other health professionals (mins): 15. Sepsis Event Evaluation Height, Weight, BMI Height: '" Weight: lbs. oz. kg; 29.45 BMI Method: Focused Exam Lactate Level 08/30/23 12:55: Lactic Acid Level 2.25*H Lactic Acid Level Laboratory Tests Test 08/30/23 12:55 Lactic Acid Level 2.25 MMOL/L (0.50-2.00) *H Exam Exam Patient acknowledged, consented, and participated in this virtual visit which was conducted using real time audio/video Vital Signs Date Time Temp Pulse Resp B/P (MAP) Pulse Ox O2 Delivery O2 Flow Rate FiO2 08/30/23 16:07 89 08/30/23 15:05 36.4 99 16 135/72 100 Room Air 08/30/23 12:55 36.5 106 16 152/75 (100) 100 Room Air 08/30/23 12:55 Room Air Height & Weight Height: '" Weight: lbs. oz. kg; 29.45 BMI Method: General Appearance: No Apparent Distress Respiratory: Lungs Clear Capillary Refill: Less Than 3 Seconds Peripheral Pulses: 2+ Dorsalis Pedis (R), 2+ Left Dors-Pedis (L) (See free text) Gastrointestinal: normal bowel sounds, non tender, soft, no organomegaly Results Lab Laboratory Tests 08/30/23 12:55 Assessment/Plan Assessment/Plan See free text. Critical Care: Critically Ill Patient LAURA GUERRA MD Aug 30, 2023 16:28
[2023-08-30] MEDS ORDERED: MELATONIN 3 MG TABLET PO PRN (16:30)
[2023-08-30] MEDS ORDERED: BENZONATATE 100 MG CAPSULE PO PRN (16:30)
[2023-08-30] MEDS: 1/2 NS IV SOLUTION 1000 ML 1,000 ML IV SCH ×3 (16:30→22:26)
[2023-08-30] MEDS ORDERED: ONDANSETRON INJECTION 4 MG/2 ML (SDV) IV PRN (16:30)
[2023-08-30] MEDS ORDERED: ANTACID SUSPENSION 30 ML UDC PO PRN (16:30)
[2023-08-30] MEDS ORDERED: CALCIUM CARBONATE 500 MG CHEW TABLET PO PRN (16:30)
[2023-08-30] MEDS ORDERED: MILK OF MAGNESIA 400 MG/5 ML 30 ML UDC PO PRN (16:30)
[2023-08-30 16:32] LABS: HEMATOCRIT 45 % (40-54); HEMOGLOBIN 14.5 g/dL (13.3-17.7); MEAN CORPUSCULAR HEMOGLOBIN 30 pg (25-34); MEAN CORPUSCULAR HGB CONC 33 g/dL (32-36); MEAN CORPUSCULAR VOLUME 91 fL (80-99); MEAN PLATELET VOLUME 11.3 fL (9.0-12.2); PLATELET COUNT 221 10^3/uL (130-400); WHITE BLOOD COUNT 17.7 10^3/uL (4.3-11.0)
[2023-08-30] MEDS: D5 1/2 NS 1,000 ML IV 1,000 ML IV SCH ×2 (16:33→20:42)
[2023-08-30 16:50] LABS: CALCIUM 8.8 MG/DL (8.5-10.1)
[2023-08-30 16:55] LABS: CREATININE SERUM 1.7 MG/DL (0.60-1.30)
[2023-08-30] MEDS: POTASSIUM CL 10MEQ/50ML IVPB 50 ML IV SCH ×3 (19:24→23:23)
[2023-08-30 20:30] LABS: CALCIUM 8.7 MG/DL (8.5-10.1); CREATININE SERUM 1.5 MG/DL (0.60-1.30); POTASSIUM 4.7 MMOL/L (3.6-5.0)
[2023-08-30] MEDS ORDERED: PIPERACILLIN/Tazobactam 4.5 GM in NS (IVPB) 100 ML 100 ML IV ONE (21:15)
[2023-08-31] MEDS: D5 1/2 NS 1,000 ML IV 1,000 ML IV SCH ×3 (00:26→07:56)
[2023-08-31 00:33] LABS: POTASSIUM 4.7 MMOL/L (3.6-5.0)
[2023-08-31 00:34] LABS: CALCIUM 8.7 MG/DL (8.5-10.1)
[2023-08-31 00:38] LABS: CREATININE SERUM 1.44 MG/DL (0.60-1.30)
[2023-08-31] MEDS: POTASSIUM CL 10MEQ/50ML IVPB 50 ML IV SCH ×4 (01:25→07:57)
[2023-08-31] MEDS: PIPERACILLIN/Tazobactam 4.5 GM in NS (IVPB) 100 ML 100 ML IV SCH ×3 (01:26→18:27)
[2023-08-31] MEDS: 1/2 NS IV SOLUTION 1000 ML 1,000 ML IV SCH ×4 (02:50→15:45)
[2023-08-31 04:32] LABS: ALBUMIN 3.3 GM/DL (3.2-4.5); POTASSIUM 4.5 MMOL/L (3.6-5.0)
[2023-08-31 04:33] LABS: CALCIUM 8.6 MG/DL (8.5-10.1)
[2023-08-31 04:35] LABS: TOTAL PROTEIN 6.4 GM/DL (6.4-8.2)
[2023-08-31 04:37] LABS: BILIRUBIN,TOTAL 0.5 MG/DL (0.1-1.0)
[2023-08-31 04:38] LABS: CREATININE SERUM 1.33 MG/DL (0.60-1.30)
[2023-08-31 05:19] LABS: BASOPHILS % (AUTO) 0 % (0-10); EOSINOPHILS % (AUTO) 0 % (0-10); HEMATOCRIT 39 % (40-54); HEMOGLOBIN 13.3 g/dL (13.3-17.7); LYMPHOCYTES # (AUTO) 0.8 10^3/uL (1.0-4.0); LYMPHOCYTES % (AUTO) 7 % (12-44); MEAN CORPUSCULAR HEMOGLOBIN 30 pg (25-34); MEAN CORPUSCULAR HGB CONC 34 g/dL (32-36); MEAN CORPUSCULAR VOLUME 87 fL (80-99); MONOCYTES # (AUTO) 1.5 10^3/uL (0.0-1.0); MONOCYTES % (AUTO) 14 % (0-12); NEUTROPHILS # (AUTO) 8.6 10^3/uL (1.8-7.8); NEUTROPHILS % (AUTO) 78 % (42-75); PLATELET COUNT 161 10^3/uL (130-400)
[2023-08-31 05:30] LABS: MAGNESIUM 2.1 MG/DL (1.6-2.4); PHOSPHORUS 1.8 MG/DL (2.3-4.7)
[2023-08-31] MEDS ORDERED: INSU100I64 SQ (07:44)
[2023-08-31 08:08] LABS: POTASSIUM 4.2 MMOL/L (3.6-5.0)
[2023-08-31 08:09] LABS: CALCIUM 8.6 MG/DL (8.5-10.1)
[2023-08-31 08:13] LABS: CREATININE SERUM 1.26 MG/DL (0.60-1.30)
--- NOTE | 2023-08-31 08:18 | Consultation - Surgery ---
BLAIR ALVAREZ 08/31/23 0818: History of Present Illness History of Present Illness Patient Consulted On(simon/time) 08/31/23 08:08 Date Seen by Provider: Aug 31, 2023 Time Seen by Provider: 07:10 Reason for Visit: Incidental cholecystitis found on CT 08/30 History of Present Illness This is a 48-year-old male w/ insulin dependent diabetes who presented to the ED having vomiting & LUQ pain. He was unable to eat or drink or take his insulin. The pt. described the pain as a 3-4/10 dull, constant ache in his abdomen without radiation. Movement made the pain worse, nothing helped. He was admitted to the ICU w/ DKA. On patient visit, he was not having any pain and was feeling much better. He was NPO status and was scheduled to get an US of the RUQ, but it can't be done till Saturday as US's are not done on the weekend unless it is an emergency, so he was put back on regular diet per the nurse. Has not had a BM since 3-4 days ago. Had some nausea last night and was given Zofran which helped. Denies fever, chills, nausea, vomiting. CT abd: showed diffuse gallbladder wall thickening with no obstructing lesions or stones. Allergies and Home Medications Allergies Coded Allergies: No Known Drug Allergies (Unverified , 08/30/23) Patient Home Medication List Home Medication List Reviewed: Yes Albuterol Sulfate (Proventil Hfa) 90 Mcg Hfa.aer.ad, 2 PUFF INH PRN, (Reported) Entered as Reported by: FALLON MONTOYA on 07/25/22806 Ascorbic Acid (Vitamin C) 1,000 Mg Tablet, 1,000 MG PO DAILY, (Reported) Entered as Reported by: FALLON MONTOYA on 07/25/22806 Aspirin (Aspirin EC) 81 Mg Tablet.dr, 81 MG PO DAILY, (Reported) Entered as Reported by: FALLON MONTOYA on 07/25/22806 Atorvastatin Calcium (Atorvastatin Calcium) 10 Mg Tablet, 10 MG PO HS, (Reported) Entered as Reported by: FALLON MONTOYA on 07/25/22806 Last Action: Reviewed Canagliflozin/Metformin HCl (Invokamet Xr 150-1,000 mg Tab) 150 Mg-1,000 Mg Tab. bp.24h, 1 EACH PO BID, (Reported) Entered as Reported by: FALLON MONTOYA on 07/25/22806 Last Action: Edited Cholecalciferol (Vitamin D3) (Vitamin D3) 25 Mcg (1000 Unit) Capsule, 25 MCG PO DAILY, (Reported) Entered as Reported by: FALLON MONTOYA on 07/25/22806 Garlic (Garlic) 1,000 Mg Capsule, 1,000 MG PO DAILY, (Reported) Entered as Reported by: FALLON MONTOYA on 07/25/22806 Glucagon HCl (Glucagon Emergency Kit) 1 Mg Vial, 1 MG IJ PRN PRN for HYPOGLYCEMIA, (Reported) Entered as Reported by: FALLON MONTOYA on 07/25/22806 Insulin Glargine/Lixisenatide (Soliqua 100 Unit-33 Mcg/ml Pen) 100 Unit-33 Mcg/Ml (3 Ml) Insuln.pen, 33 ML SQ HS, (Reported) Entered as Reported by: FALLON MONTOYA on 07/25/22806 Last Action: Edited Insulin Lispro (Insulin Lispro Kwikpen U-100) 100 Unit/Ml Insuln.pen, 9 UNITS SQ BID, (Reported) Entered as Reported by: PALOMA STRICKLAND on 08/31/23 07 Last Action: New Order Lisinopril (Lisinopril) 10 Mg Tablet, 10 MG PO DAILY, (Reported) Entered as Reported by: Kate Parmar on 07/25/231319 Last Action: Reviewed Meloxicam (Meloxicam) 7.5 Mg Tablet, 7.5 MG PO, (Reported) Entered as Reported by: Kate Parmar on 07/25/231319 Montelukast Sodium (Montelukast Sodium) 10 Mg Tablet, 10 MG PO DAILY, (Reported) Entered as Reported by: FALLON MONTOYA on 07/25/22806 Pantoprazole Sodium (Pantoprazole Sodium) 40 Mg Granpkt.dr, 40 MG PO DAILY, (Reported) Entered as Reported by: Kate Parmar on 07/25/231319 Last Action: Edited Past Aflwque-Rcbcgc-Oinxmy Hx Patient Social History Smoking Status: Never a Smoker Alcohol Use?: No Seasonal Allergies Seasonal Allergies: Yes Surgeries History of Surgeries: Yes Surgeries: Appendectomy, Ear Surgery, Tonsillectomy Respiratory History of Respiratory Disorde: Yes Cardiovascular History of Cardiac Disorders: Yes Cardiac Disorders: Cardiomyopathy, High Cholesterol, Hypertension, Irregular Heartbeat Neurological History of Neurological Disord: No Genitourinary History of Genitourinary Disor: No Gastrointestinal History of Gastrointestinal Di: Yes (CONTROLLED WITH MEDICATION) Gastrointestinal Disorders: Gastroesophageal Reflux Musculoskeletal History of Musculoskeletal Dis: Yes Musculoskeletal Disorders: Arthritis Endocrine History of Endocrine Disorders: Yes Endocrine Disorders: Diabetes, Insulin dep HEENT History of HEENT Disorders: No Cancer History of Cancer: No Psychosocial History of Psychiatric Problem: No Integumentary History of Skin or Integumenta: No Blood Transfusions History of Blood Disorders: No Adverse Reaction to a Blood Tr: No Review of Systems-General Constitutional: No chills, No fever EENTM: No blurred vision, No mouth pain Respiratory: cough; No short of breath Cardiovascular: No chest pain, No edema Gastrointestinal: No nausea, No vomiting Genitourinary: No decreased output, No dysuria Musculoskeletal: no symptoms reported Skin: No change in color; dryness (Lower legs) Psychiatric/Neurological: Denies Anxiety, Denies Headache Physical Exam-General Problems Physical Exam Vital Signs Vital Signs - First Documented 08/30/23 12:55 Temp 36.5 Pulse 106 Resp 16 B/P (MAP) 152/75 (100) Pulse Ox 100 O2 Delivery Room Air Capillary Refill : Less Than 3 Seconds General Appearance: WD/WN, no apparent distress Eyes: Bilateral Eye Normal Inspection, Bilateral Eye PERRL, Bilateral Eye EOMI HEENT: pharynx normal Neck: supple, normal inspection Respiratory: chest non-tender, no respiratory distress, no accessory muscle use Cardiovascular: regular rate, rhythm, no edema Peripheral Pulses: 2+ Dorsalis Pedis (R), 2+ Left Dors-Pedis (L), 2+ Radial Pulses (R), 2+ Radial Pulses (L) Gastrointestinal: soft; No distended, No guarding; tenderness (Upper quadrants); No mass Extremities: non-tender, normal inspection, no pedal edema Neurologic/Psychiatric: alert, normal mood/affect, oriented x 3 Skin: normal color, warm/dry Data Review Labs Laboratory Tests 08/30/23 12:40: Urine Color YELLOW, Urine Clarity CLEAR, Urine pH 5.5, Urine Specific [place] 1.025H, Urine Protein TRACEH, Urine Glucose (UA) 3+H, Urine Ketones 3+H, Urine Nitrite NEGATIVE, Urine Bilirubin 1+H, Urine Urobilinogen 0.2, Urine Leukocyte Esterase NEGATIVE, Urine RBC (Auto) 1+H, Urine RBC 2-5H, Urine WBC NONE, Urine Squamous Epithelial Cells 2-5, Urine Crystals NONE, Urine Bacteria MODERATEH, Urine Casts PRESENT, Urine Granular Casts 2-5H, Urine Mucus NEGATIVE, Urine Culture Indicated YES 08/30/23 12:53: Glucometer 305H 08/30/23 12:55: White Blood Count 20.6H, Red Blood Count 5.60H, Hemoglobin 16.2, Hematocrit 51, Mean Corpuscular Volume 91, Mean Corpuscular Hemoglobin 29, Mean Corpuscular Hemoglobin Concent 32, Red Cell Distribution Width 12.9, Platelet Count 271, Mean Platelet Volume 11.2, Immature Granulocyte % (Auto) 1, Neutrophils (%) (Auto) 86H, Lymphocytes (%) (Auto) 5L, Monocytes (%) (Auto) 8, Eosinophils (%) (Auto) 0, Basophils (%) (Auto) 0, Neutrophils # (Auto) 17.7H, Lymphocytes # (Auto) 1.0, Monocytes # (Auto) 1.7H, Eosinophils # (Auto) 0.0, Basophils # (Auto) 0.1, Immature Granulocyte # (Auto) 0.2H, Neutrophils % (Manual) 83, Lymphocytes % (Manual) 9, Monocytes % (Manual) 8, Prothrombin Time 13.6, INR Comment 1.0, Activated Partial Thromboplast Time 25, Sodium Level 123*L, Po tassium Level 5.5H, Chloride Level 86L, Carbon Dioxide Level 7*L, Anion Gap 30H, Blood Urea Nitrogen 40H, Creatinine 1.34H, Estimat Glomerular Filtration Rate 65, BUN/Creatinine Ratio 30, Glucose Level 305H, Lactic Acid Level 2.25*H, Calcium Level 9.9, Corrected Calcium 9.5, Total Bilirubin 0.7, Aspartate Amino Transf (AST/SGOT) 26, Alanine Aminotransferase (ALT/SGPT) 73H, Alkaline Phosphatase 137H, Troponin I < 0.30, Total Protein 9.0H, Albumin 4.5, Lipase 21, Influenza Type A (RT-PCR) Not Detected, Influenza Type B (RT-PCR) Not Detected, SARS-CoV-2 RNA (RT-PCR) Not Detected 08/30/23 13:50: Venous Blood pH 7.08L, Venous Blood Partial Pressure CO2 23L, Venous Blood HCO3 7L 08/30/23 14:29: Glucometer 301H 08/30/23 16:13: Glucometer 214H 08/30/23 16:26: White Blood Count 17.7H, Red Blood Count 4.91, Hemoglobin 14.5, Hematocrit 45, Mean Corpuscular Volume 91, Mean Corpuscular Hemoglobin 30, Mean Corpuscular Hemoglobin Concent 33, Red Cell Distribution Width 12.8, Platelet Count 221, Mean Platelet Volume 11.3, Sodium Level 129L, Potassium Level 5.0, Chloride Level 102, Carbon Dioxide Level 6*L, Anion Gap 21H, Blood Urea Nitrogen 35H, Creatinine 1.70H, Estimat Glomerular Filtration Rate 49, BUN/Creatinine Ratio 21, Glucose Level 193H, Lactic Acid Level 2.09*H, Calcium Level 8.8, Beta- Hydroxybutyrate (Chem panel) 6.74H 08/30/23 17:20: Glucometer 175H 08/30/23 18:28: Glucometer 201H 08/30/23 19:16: Glucometer 204H 08/30/23 20:09: Sodium Level 130L, Potassium Level 4.7, Chloride Level 104, Carbon Dioxide Level 10L, Anion Gap 16H, Blood Urea Nitrogen 32H, Creatinine 1.50H, Estimat Glomerular Filtration Rate 56, BUN/Creatinine Ratio 21, Glucose Level 165H, Calcium Level 8.7 08/30/23 20:11: Glucometer 159H 08/30/23 21:16: Glucometer 166H 08/30/23 22:17: Glucometer 134H 08/30/23 23:44: Glucometer 164H 08/31/23 00:17: Sodium Level 131L, Potassium Level 4.7, Chloride Level 104, Carbon Dioxide Level 12L, Anion Gap 15H, Blood Urea Nitrogen 27H, Creatinine 1.44H, Estimat Glomerular Filtration Rate 59, BUN/Creatinine Ratio 19, Glucose Level 161H, Calcium Level 8.7 08/31/23 00:48: Glucometer 165H 08/31/23 01:47: Glucometer 148H 08/31/23 02:47: Glucometer 146H 08/31/23 03:43: Glucometer 137H 08/31/23 04:15: White Blood Count 11.0, Red Blood Count 4.48, Hemoglobin 13.3, Hematocrit 39L, Mean Corpuscular Volume 87, Mean Corpuscular Hemoglobin 30, Mean Corpuscular Hemoglobin Concent 34, Red Cell Distribution Width 13.0, Platelet Count 161, Mean Platelet Volume 12.0, Immature Granulocyte % (Auto) 1, Neutrophils (%) (Auto) 78H, Lymphocytes (%) (Auto) 7L, Monocytes (%) (Auto) 14H, Eosinophils (%) (Auto) 0, Basophils (%) (Auto) 0, Neutrophils # (Auto) 8.6H, Lymphocytes # (Auto) 0.8L, Monocytes # (Auto) 1.5H, Eosinophils # (Auto) 0.0, Basophils # (Auto) 0.0, Immature Granulocyte # (Auto) 0.1, Percent Immature Platelet Fraction 7.0, Sodium Level 132L, Potassium Level 4.5, Chloride Level 108H, Carbon Dioxide Level 14L, Anion Gap 10, Blood Urea Nitrogen 21H, Creatinine 1.33H, Estimat Glomerular Filtration Rate 65, BUN/Creatinine Ratio 16, Glucose Level 135H, Calcium Level 8.6, Corrected Calcium 9.2, Phosphorus Level 1.8L, Magnesium Level 2.1, Total Bilirubin 0.5, Aspartate Amino Transf (AST/SGOT) 36H, Alanine Aminotransferase (ALT/SGPT) 65H, Alkaline Phosphatase 79, Total Protein 6.4, Albumin 3.3 08/31/23 04:39: Glucometer 155H 08/31/23 05:46: Glucometer 138H 08/31/23 06:48: Glucometer 153H 08/31/23 07:45: Assessment/Plan Assessment/Plan Assessment/Plan Incidental cholecystitis found on CT, warrant US f/u No pericholecystic fluid seen on CT imaging DKA GERD Regular diet US on Saturday Continue supportive care STEVENSON DESAI DO 08/31/23 1410: History of Present Illness History of Present Illness History of Present Illness Consult requested by Dr. Alvares. Patient is a 48 year old male who is admitted for DKA. Has been having nausea and vomiting, but better since admitted. Ate breakfast this morning. Mild ruq abdominal pain. Had ct scan showing some thickening of the gallbladder wall. Labs improving. Allergies and Home Medications Allergies Coded Allergies: No Known Drug Allergies (Unverified , 08/30/23) Patient Home Medication List Home Medication List Reviewed: Yes Albuterol Sulfate (Proventil Hfa) 90 Mcg Hfa.aer.ad, 2 PUFF INH PRN, (Reported) Entered as Reported by: FALLON MONTOYA on 07/25/22806 Ascorbic Acid (Vitamin C) 1,000 Mg Tablet, 1,000 MG PO DAILY, (Reported) Entered as Reported by: FALLON MONTOYA on 07/25/22806 Aspirin (Aspirin EC) 81 Mg Tablet.dr, 81 MG PO DAILY, (Reported) Entered as Reported by: FALLON MONTOYA on 07/25/22806 Atorvastatin Calcium (Atorvastatin Calcium) 10 Mg Tablet, 10 MG PO HS, (Reported) Entered as Reported by: FALLON MONTOYA on 07/25/22806 Last Action: Reviewed Canagliflozin/Metformin HCl (Invokamet Xr 150-1,000 mg Tab) 150 Mg-1,000 Mg Tab.bp.24h, 1 EACH PO BID, (Reported) Entered as Reported by: FALLON MONTOYA on 07/25/22806 Last Action: Edited Cholecalciferol (Vitamin D3) (Vitamin D3) 25 Mcg (1000 Unit) Capsule, 25 MCG PO DAILY, (Reported) Entered as Reported by: FALLON MONTOYA on 07/25/22806 Garlic (Garlic) 1,000 Mg Capsule, 1,000 MG PO DAILY, (Reported) Entered as Reported by: FALLON MONTOYA on 07/25/22806 Glucagon HCl (Glucagon Emergency Kit) 1 Mg Vial, 1 MG IJ PRN PRN for HYPOGLYCEMIA, (Reported) Entered as Reported by: FALLON MONTOYA on 07/25/22806 Insulin Glargine/Lixisenatide (Soliqua 100 Unit-33 Mcg/ml Pen) 100 Unit-33 Mcg/Ml (3 Ml) Insuln.pen, 33 ML SQ HS, (Reported) Entered as Reported by: FALLON MONTOYA on 07/25/22806 Last Action: Edited Insulin Lispro (Insulin Lispro Kwikpen U-100) 100 Unit/Ml Insuln.pen, 9 UNITS SQ BID, (Reported) Entered as Reported by: PALOMA STRICKLAND on 08/31/23 0744 Last Action: New Order Lisinopril (Lisinopril) 10 Mg Tablet, 10 MG PO DAILY, (Reported) Entered as Reported by: Kate Parmar on 07/25/231319 Last Action: Reviewed Meloxicam (Meloxicam) 7.5 Mg Tablet, 7.5 MG PO, (Reported) Entered as Reported by: Kate Parmar on 07/25/231319 Montelukast Sodium (Montelukast Sodium) 10 Mg Tablet, 10 MG PO DAILY, (Reported) Entered as Reported by: FALLON MONTOYA on 07/25/22 08 Pantoprazole Sodium (Pantoprazole Sodium) 40 Mg Granpkt.dr, 40 MG PO DAILY, (Reported) Entered as Reported by: Kate Parmar on 07/25/231319 Last Action: Edited Past Wwbsmet-Rayelw-Wuyjqu Hx Reviewed Nursing Assessment Reviewed/Agree w Nursing PMH: Yes Family Medical History Significant Family History: No Pertinent Family Hx Review of Systems-General Constitutional: No chills, No fever EENTM: No blurred vision, No double vision Respiratory: cough; No short of breath Cardiovascular: No chest pain, No edema Gastrointestinal: abdominal pain (RUQ), nausea, vomiting Genitourinary: No decreased output, No discharge Musculoskeletal: No back pain, No joint pain Skin: No change in color; dryness (Lower legs) Psychiatric/Neurological: Denies Anxiety, Denies Headache All Other Systems Reviewed Negative Unless Noted: Yes (Negative excepted noted.) Physical Exam-General Problems Physical Exam General Appearance: WD/WN, no apparent distress HEENT: PERRL/EOMI, normal ENT inspection Neck: non-tender, supple Respiratory: chest non-tender, no respiratory distress, no accessory muscle use Cardiovascular: regular rate, rhythm, no JVD Gastrointestinal: soft; No distended, No guarding; tenderness (Upper quadrants) Rectal: deferred Back: normal inspection, no CVA tenderness Extremities: non-tender, normal inspection, no pedal edema Neurologic/Psychiatric: alert, normal mood/affect, oriented x 3 Skin: normal color, warm/dry Lymphatic: no adenopathy Assessment/Plan Assessment/Plan Assessment/Plan DKA gall bladder wall thickening on ct GERD electrolyte abnormalities U/s was ordered and not available till saturday. u/s came in to day, but already given diet. will see if they can do it tomorrow. DKA and electrolytes improving continue abx elect Supervisory-Addendum Brief Verification & Attestation Participated in pt care: history, MDM, physical Personally performed: exam, history, MDM, supervision of care Care discussed with: Medical Student Procedures: n/a Results interpretation: Verified all documentation Verification and Attestation of Medical Student E/M Service A medical student performed and documented this service in my presence. I reviewed and verified all information documented by the medical student and made modifications to such information, when appropriate. I personally performed the physical exam and medical decision making. Stevenson Desai, Aug 31, 2023,14:15 BLAIR ALVAREZ Aug 31, 2023 08:18 STEVENSON DESAI DO Aug 31, 2023 14:10
[2023-08-31] MEDS ORDERED: inSUlin DETERMIR 1 UNIT/0.01 ML (CHARGE PER UNIT) SQ ONE (09:00)
--- NOTE | 2023-08-31 09:52 | Tele-ICU Progress Note ---
Subjective Date Seen by a Provider: Aug 31, 2023 Time Seen by a Provider: 09:52 Subjective/Events-last exam (Tele-ICU Physician , Progress Note ) Service provided via interactive audio and video telecommunications E-CARE system to a patient admitted to ICU bed in [facility]. Patient is seen today due to persistent need of ICU care Available chart/ vitals / labs / Images reviewed Video assessment done using teleICU camera, rest of exam as per RN Discussed with RN Events overnight : Afebrile hemodynamically stable Respiratory - I/O = Drips:insulin Pressors- no Hospital course: (08/30) 48M Admitted from [facility] for DKA, cholecystitis, VANNA, ?UTI/sepsis A/P DKA -precipitated by infection, presumed *Insulin drip, continue to monitor for resolution of acidosis, AG and electrolytes. Continue hydration. *Tx Gastroparesis VANNA - dehydration, hypotension - cont IVF - NORMALIZED Leukocytosis, Incidental cholecystitis found on CT - empiric ABX given - sx consult pending mild Hyponatremia - follow CAD- s./p cath 12/2021- nonobstructive disease Lines : periph , (Central Line Necessity Reviewed) Soto: void OG: Nutrition: Analgesia: Anxiety/ delirium VTE Prophylaxis: scd , heparin when ok with sx Stress Ulcer Prophylaxis: Plans in collaboration with bedside consultants and IM MDs. Discussed with RN to reach out if any questions or concerns Case and care daily discussed on multidisciplinary rounds ( RN, PharmD, Fermenting Cellars Receiver , Respiratory Therapy, geothermal sheet metal worker ) A total of 15 minutes of critical care time was devoted to this patient today, required to treat and/or prevent further deterioration of critical care condition ( as above ) . I am remotely monitoring this patient from another state. I am unable to do the bedside exam, and history/physical and pertinent information is taken from other notes in the computer and bedside staff. Sepsis Event Evaluation Height, Weight, BMI Height: '" Weight: lbs. oz. kg; 30.17 BMI Method: Focused Exam Lactate Level 08/30/23 12:55: Lactic Acid Level 2.25*H 08/30/23 16:26: Lactic Acid Level 2.09*H Exam Exam Patient acknowledged, consented, and participated in this virtual visit which was conducted using real time audio/video Vital Signs Date Time Temp Pulse Resp B/P (MAP) Pulse Ox O2 Delivery O2 Flow Rate FiO2 08/31/23 09:00 61 27 131/90 (104) 99 Room Air 08/31/23 08:04 36.2 08/31/23 08:00 59 21 124/75 (91) 99 Room Air 08/31/23 07:00 64 08/31/23 07:00 63 24 121/71 (88) 99 Room Air 08/31/23 06:00 60 30 124/69 (87) 98 Room Air 08/31/23 05:00 64 25 123/64 (83) 97 Room Air 08/31/23 04:00 98 Room Air 08/31/23 04:00 70 17 117/67 (84) 98 Room Air 08/31/23 03:48 36.7 Room Air 08/31/23 03:00 64 21 124/71 (88) 99 Room Air 08/31/23 02:00 63 18 120/67 (84) 98 Room Air 08/31/23 01:00 71 43 120/78 (92) 100 Room Air 08/31/23 01:00 71 08/31/23 00:00 73 33 122/67 (85) 99 Room Air 08/30/23 23:45 100 Room Air 08/30/23 23:42 36.9 Room Air 08/30/23 23:00 70 26 128/66 (86) 99 Room Air 08/30/23 22:00 68 18 124/65 (84) 98 Room Air 08/30/23 21:00 73 20 124/69 (87) 97 Room Air 08/30/23 20:00 66 20 126/70 (88) 100 Room Air 08/30/23 19:15 99 Room Air 08/30/23 19:00 36.7 65 22 131/70 (90) 99 Room Air 08/30/23 19:00 63 08/30/23 18:00 74 19 129/70 (89) 100 Room Air 08/30/23 17:00 81 18 125/70 (88) 99 Room Air 08/30/23 16:30 99 Room Air 08/30/23 16:07 89 08/30/23 16:00 36.5 80 18 132/69 (90) 96 Room Air 08/30/23 15:05 36.4 99 16 135/72 100 Room Air 08/30/23 12:55 36.5 106 16 152/75 (100) 100 Room Air 08/30/23 12:55 Room Air I & O 08/31/23 07:00 Intake Total 6350 ml Output Total 6725 ml Balance -375 ml Height & Weight Height: '" Weight: lbs. oz. kg; 30.17 BMI Method: General Appearance: No Apparent Distress Respiratory: Lungs Clear Capillary Refill: Less Than 3 Seconds Peripheral Pulses: 2+ Dorsalis Pedis (R), 2+ Left Dors-Pedis (L), 2+ Radial Pulses (R), 2+ Radial Pulses (L) Gastrointestinal: soft; No distended, No guarding; tenderness (Upper quadrants); No mass Results Lab Laboratory Tests 08/30/23 12:55 08/30/23 16:26 08/30/23 20:09 08/31/23 00:17 08/31/23 04:15 08/31/23 07:45 Assessment/Plan Assessment/Plan 1 DOUGLAS LAINEZ MD Aug 31, 2023 09:52
[2023-08-31] MEDS: NS IV 1000 ML 1,000 ML IV SCH (11:20)
[2023-08-31] MEDS: inSUlin ASPART 1 UNIT/0.01 ML (PER UNIT) SC SCH ×3 (11:33→22:16)
--- NOTE | 2023-08-31 12:17 | Progress Note ---
AMBIKA العراقي MD,RESIDENT 08/31/23 1217: Subjective Subjective/Events-last exam Pt reports feeling a little better today. Denies N/V, chest pain, SOB, vision changes, dizziness. He still c/o abdominal pain, about 7/10 this morning. Focused Exam Lactate Level 08/30/23 12:55: Lactic Acid Level 2.25*H 08/30/23 16:26: Lactic Acid Level 2.09*H Objective Exam Last Set of Vital Signs Vital Signs Date Time Temp Pulse Resp B/P (MAP) Pulse Ox O2 Delivery O2 Flow Rate FiO2 08/31/23 12:00 66 24 97 Room Air 08/31/23 11:19 36.1 Capillary Refill : Less Than 3 Seconds I&O Intake and Output 08/31/23 00:00 Intake Total 3500 ml Output Total 2100 ml Balance 1400 ml Intake Oral 200 ml IV Total 3300 ml Output Urine Total 2100 ml # Voids 1 Daily Weight Change No General: Alert, Oriented X3, No Acute Distress HEENT: Atraumatic Lungs: Clear to Auscultation, Normal Air Movement Heart: Regular Rate, No Murmurs Abdomen: Soft, Other (Tender to palpation over RUQ) Extremities: No Edema Neuro: Normal Speech Psych/Mental Status: Mental Status NL, Mood NL Results/Procedures Lab Laboratory Tests 08/30/23 12:40: Urine Color YELLOW, Urine Clarity CLEAR, Urine pH 5.5, Urine Specific [place] 1.025H, Urine Protein TRACEH, Urine Glucose (UA) 3+H, Urine Ketones 3+H, Urine Nitrite NEGATIVE, Urine Bilirubin 1+H, Urine Urobilinogen 0.2, Urine Leukocyte Esterase NEGATIVE, Urine RBC (Auto) 1+H, Urine RBC 2-5H, Urine WBC NONE, Urine Squamous Epithelial Cells 2-5, Urine Crystals NONE, Urine Bacteria MODERATEH, Urine Casts PRESENT, Urine Granular Casts 2-5H, Urine Mucus NEGATIVE, Urine Culture Indicated YES 08/30/23 12:53: Glucometer 305H 08/30/23 12:55: White Blood Count 20.6H, Red Blood Count 5.60H, Hemoglobin 16.2, Hematocrit 51, Mean Corpuscular Volume 91, Mean Corpuscular Hemoglobin 29, Mean Corpuscular Hemoglobin Concent 32, Red Cell Distribution Width 12.9, Platelet Count 271, Mean Platelet Volume 11.2, Immature Granulocyte % (Auto) 1, Neutrophils (%) (Auto) 86H, Lymphocytes (%) (Auto) 5L, Monocytes (%) (Auto) 8, Eosinophils (%) (Auto) 0, Basophils (%) (Auto) 0, Neutrophils # (Auto) 17.7H, Lymphocytes # (Auto) 1.0, Monocytes # (Auto) 1.7H, Eosinophils # (Auto) 0.0, Basophils # (Aut o) 0.1, Immature Granulocyte # (Auto) 0.2H, Neutrophils % (Manual) 83, Lymphocytes % (Manual) 9, Monocytes % (Manual) 8, Prothrombin Time 13.6, INR Comment 1.0, Activated Partial Thromboplast Time 25, Sodium Level 123*L, Potassium Level 5.5H, Chloride Level 86L, Carbon Dioxide Level 7*L, Anion Gap 30H, Blood Urea Nitrogen 40H, Creatinine 1.34H, Estimat Glomerular Filtration Rate 65, BUN/Creatinine Ratio 30, Glucose Level 305H, Lactic Acid Level 2.25*H, Calcium Level 9.9, Corrected Calcium 9.5, Total Bilirubin 0.7, Aspartate Amino Transf (AST/SGOT) 26, Alanine Aminotransferase (ALT/SGPT) 73H, Alkaline Phosphatase 137H, Troponin I < 0.30, Total Protein 9.0H, Albumin 4.5, Lipase 21, Influenza Type A (RT-PCR) Not Detected, Influenza Type B (RT-PCR) Not Detected, SARS-CoV-2 RNA (RT-PCR) Not Detected 08/30/23 13:50: Venous Blood pH 7.08L, Venous Blood Partial Pressure CO2 23L, Venous Blood HCO3 7L 08/30/23 14:29: Glucometer 301H 08/30/23 16:13: Glucometer 214H 08/30/23 16:26: White Blood Count 17.7H, Red Blood Count 4.91, Hemoglobin 14.5, Hematocrit 45, Mean Corpuscular Volume 91, Mean Corpuscular Hemoglobin 30, Mean Corpuscular Hemoglobin Concent 33, Red Cell Distribution Width 12.8, Platelet Count 221, Mean Platelet Volume 11.3, Sodium Level 129L, Potassium Level 5.0, Chloride Level 102, Carbon Dioxide Level 6*L, Anion Gap 21H, Blood Urea Nitrogen 35H, Creatinine 1.70H, Estimat Glomerular Filtration Rate 49, BUN/Creatinine Ratio 21, Glucose Level 193H, Lactic Acid Level 2.09*H, Calcium Level 8.8, Beta- Hydroxybutyrate (Chem panel) 6.74H 08/30/23 17:20: Glucometer 175H 08/30/23 18:28: Glucometer 201H 08/30/23 19:16: Glucometer 204H 08/30/23 20:09: Sodium Level 130L, Potassium Level 4.7, Chloride Level 104, Carbon Dioxide Level 10L, Anion Gap 16H, Blood Urea Nitrogen 32H, Creatinine 1.50H, Estimat Glomerular Filtration Rate 56, BUN/Creatinine Ratio 21, Glucose Level 165H, Calcium Level 8.7 08/30/23 20:11: Glucometer 159H 08/30/23 21:16: Glucometer 166H 08/30/23 22:17: Glucometer 134H 08/30/23 23:44: Glucometer 164H 08/31/23 00:17: Sodium Level 131L, Potassium Level 4.7, Chloride Level 104, Carbon Dioxide Level 12L, Anion Gap 15H, Blood Urea Nitrogen 27H, Creatinine 1.44H, Estimat Glomerular Filtration Rate 59, BUN/Creatinine Ratio 19, Glucose Level 161H, Calcium Level 8.7 08/31/23 00:48: Glucometer 165H 08/31/23 01:47: Glucometer 148H 08/31/23 02:47: Glucometer 146H 08/31/23 03:43: Glucometer 137H 08/31/23 04:15: White Blood Count 11.0, Red Blood Count 4.48, Hemoglobin 13.3, Hematocrit 39L, Mean Corpuscular Volume 87, Mean Corpuscular Hemoglobin 30, Mean Corpuscular Hemoglobin Concent 34, Red Cell Distribution Width 13.0, Platelet Count 161, Mean Platelet Volume 12.0, Immature Granulocyte % (Auto) 1, Neutrophils (%) (Auto) 78H, Lymphocytes (%) (Auto) 7L, Monocytes (%) (Auto) 14H, Eosinophils (%) (Auto) 0, Basophils (%) (Auto) 0, Neutrophils # (Auto) 8.6H, Lymphocytes # (Auto) 0.8L, Monocytes # (Auto) 1.5H, Eosinophils # (Auto) 0.0, Basophils # (Auto) 0.0, Immature Granulocyte # (Auto) 0.1, Percent Immature Platelet Fraction 7.0, Sodium Level 132L, Potassium Level 4.5, Chloride Level 108H, Carbon Dioxide Level 14L, Anion Gap 10, Blood Urea Nitrogen 21H, Creatinine 1.33H, Estimat Glomerular Filtration Rate 65, BUN/Creatinine Ratio 16, Glucose Level 135H, Calcium Level 8.6, Corrected Calcium 9.2, Phosphorus Level 1.8L, Magnesium Level 2.1, Total Bilirubin 0.5, Aspartate Amino Transf (AST/SGOT) 36H, Alanine Aminotransferase (ALT/SGPT) 65H, Alkaline Phosphatase 79, Total Protein 6.4, Albumin 3.3 08/31/23 04:39: Glucometer 155H 08/31/23 05:46: Glucometer 138H 08/31/23 06:48: Glucometer 153H 08/31/23 07:45: Sodium Level 131L, Potassium Level 4.2, Chloride Level 107, Carbon Dioxide Level 16L, Anion Gap 8, Blood Urea Nitrogen 18, Creatinine 1.26, Estimat Glomerular Filtration Rate 69, BUN/Creatinine Ratio 14, Glucose Level 148H, Calcium Level 8.6 08/31/23 07:47: Glucometer 157H 08/31/23 08:38: Glucometer 132H 08/31/23 09:37: Glucometer 186H 08/31/23 10:34: Glucometer 185H 08/31/23 11:23: Glucometer 174H Assessment/Plan Assessment/Plan Admission Status: Inpatient Order (span 2 midnights) Assessment & Plan Pt admitted to the hospital with DKA. 3-4 day history of feeling poorly. Complaints of abd pain and inability to eat or drink much so hasn't been taking his normal insulin. Denies a history of DKA in the past and reports normally compliant with insulin regimen. Found to be in DKA by the ER and admitted for IV insulin gtt and DKA protocol. BS improving on arrival here on insulin gtt. Reviewed CT report and concerning for cholecystisis. Exam does not suggest an acute abd. Soft, nontender and no rebound. Marks's sign negative. Spoke with Dr Menendez regarding case. Will escalate abx to Zosyn from Rocephin given in the ER. Will get usg in the AM and check CMP in the AM. Will also make NPO after midnight as well. Does have mild VANNA so will continue IVF and monitor I/Os. Na low as well, corrects to 128. Reviewed old labs and had been 133 recently. Like ly multifactorial from hypovolemia and hyperglycemia. Trend electrolytes. eICU consulted as well. A1c pending. (1) DKA (diabetic ketoacidosis) Assessment & Plan: AG 30 LA 2.25 UA: 3+ ketones, 3+ glucose Glucose on admission 305 PLAN: DKA protocol BMP BID D5 1/2 NS Detemir bridge start, turn of insulin gtt after 2 hrs Transfer for floor if 1500 BMP appropriate Qualifiers: Qualified Codes: E11.10 - Type 2 diabetes mellitus with ketoacidosis without coma (2) Insulin dependent type 2 diabetes mellitus Assessment & Plan: ANIMATION ARTIST medications: Invokamet 150-100 mg + insulin glargine 100U-33mcg Pt has not taken home medications in at least 4 days PLAN: Continue DKA protocol - transition to long-acting insulin (3) Hyperkalemia Status: Acute Assessment & Plan: 5.5 on admission PLAN: Maintain >3 with KCL IV BID BMP (4) Hypochloremia Status: Acute Assessment & Plan: Cl on admission 86 PLAN: Replete with NaCl IVF BID BMP (5) Hyponatremia Status: Acute Assessment & Plan: Na 123 on admission PLAN: Replete with NS IVF BID BMP (6) Acute renal insufficiency Status: Acute Assessment & Plan: Likely 2/2 intravascular volume depletion Cr 1.34-->1.7-->1.26 PLAN: Avoid nephrotoxic agents IVF Daily BMP (7) Nausea and vomiting Status: Acute Assessment & Plan: Pt reports N/V for the last 4 days intermittently PLAN: Zofran 4mg q4 PRN Qualifiers: Qualified Codes: R11.2 - Nausea with vomiting, unspecified (8) Elevated lactic acid level Status: Acute Assessment & Plan: LA 2.5 on admission PLAN: Trend LA (9) Cholecystitis Assessment & Plan: Incidental finding on CT abdpelv 08/30: Diffuse gallbladder wall thickening suspicious for cholecystitis. No cholelithiasis or obstructing lesions are identified. This could be further investigated with ultrasound. Pts abdominal pain generalized PLAN: RUQ US 09/02 General surgery consult Shannon (10) HTN (hypertension) Assessment & Plan: PLAN: Consider resuming ANIMATION ARTIST lisinopril 10 mg when stabilized (11) GERD (gastroesophageal reflux disease) Assessment & Plan: PLAN: Will resume ANIMATION ARTIST protonix 40 mg q24 when stablized LAURA MCGUIRE MD 08/31/232036: Assessment/Plan Assessment/Plan Assessment & Plan Pt reports doing better today. titrate off insulin gtt. If afternoon BMP stable will transfer to 4th floor. Spoke with Dr Menendez. We are unable to get an usg this weekend so it has been moved to Saturday. Ideally he would prefer him to be stable from DKA before operating as well. I personally have seen and evaluated the patient and performed the physical exa m. I agree with the documented assessment and plan. AMBIKA العراقي MD,RESIDENT Aug 31, 2023 12:17 LAURA MCGUIRE MD Aug 31, 2023 20:37
[2023-08-31] MEDS: ENOXAPARIN 40 MG/0.4 ML SYRINGE SQ SCH (12:47)
[2023-08-31 15:25] LABS: POTASSIUM 4.4 MMOL/L (3.6-5.0)
[2023-08-31 15:26] LABS: CALCIUM 8.9 MG/DL (8.5-10.1)
[2023-08-31 15:31] LABS: CREATININE SERUM 1.04 MG/DL (0.60-1.30)
[2023-08-31 21:07] VITALS: BP 132/74
[2023-09-01 00:34] VITALS: BP 117/56
[2023-09-01] MEDS: PIPERACILLIN/Tazobactam 4.5 GM in NS (IVPB) 100 ML 100 ML IV SCH ×3 (00:54→16:52)
[2023-09-01] MEDS: NS IV 1000 ML 1,000 ML IV SCH ×2 (00:54→13:56)
[2023-09-01 04:40] VITALS: BP 130/72
[2023-09-01 06:05] LABS: BASOPHILS % (AUTO) 0 % (0-10); EOSINOPHILS # (AUTO) 0.1 10^3/uL (0.0-0.3); EOSINOPHILS % (AUTO) 1 % (0-10); HEMATOCRIT 39 % (40-54); HEMOGLOBIN 13.2 g/dL (13.3-17.7); LYMPHOCYTES # (AUTO) 1.1 10^3/uL (1.0-4.0); LYMPHOCYTES % (AUTO) 18 % (12-44); MEAN CORPUSCULAR HEMOGLOBIN 29 pg (25-34); MEAN CORPUSCULAR HGB CONC 34 g/dL (32-36); MEAN CORPUSCULAR VOLUME 86 fL (80-99); MONOCYTES # (AUTO) 0.8 10^3/uL (0.0-1.0); MONOCYTES % (AUTO) 12 % (0-12); NEUTROPHILS # (AUTO) 4.3 10^3/uL (1.8-7.8); NEUTROPHILS % (AUTO) 68 % (42-75); PLATELET COUNT 192 10^3/uL (130-400); WHITE BLOOD COUNT 6.3 10^3/uL (4.3-11.0)
[2023-09-01 06:25] LABS: MAGNESIUM 2.1 MG/DL (1.6-2.4); PHOSPHORUS 2.2 MG/DL (2.3-4.7)
[2023-09-01] MEDS: inSUlin ASPART 1 UNIT/0.01 ML (PER UNIT) SC SCH ×4 (06:27→20:11)
[2023-09-01 08:00] VITALS: BP 145/75
--- NOTE | 2023-09-01 08:03 | Progress Note - Surgery ---
BLAIR ALVAREZ 09/01/23 0803: Subjective Date Seen by a Provider: Sep 01, 2023 Time Seen by a Provider: 07:10 Subjective/Events-last exam Patient is currently still having RUQ abdominal pain and rates it as a 4/10 that is constant. He is NPO and scheduled to get an US this morning (8:30). Stated he had a BM yesterday and reported it solid, non-bloody. Blood glucose levels are back down to his baseline (160) per the nurse. Dunia any fever, chills, nausea, or vomiting. Son was in the room on patient visit. Review of Systems General: No Chills, No Night Sweats HEENT: No Head Aches, No Visual Changes Pulmonary: No Dyspnea; Cough Cardiovascular: No: Chest Pain, Palpitations Gastrointestinal: Abdominal Pain; No: Nausea, Vomiting Genitourinary: No Dysuria, No Frequency Musculoskeletal: No: neck pain, shoulder pain Neurological: No: Weakness, Confusion Focused Exam Lactate Level 08/30/23 12:55: Lactic Acid Level 2.25*H 08/30/23 16:26: Lactic Acid Level 2.09*H Objective Exam Vital Signs Date Time Temp Pulse Resp B/P (MAP) Pulse Ox O2 Delivery O2 Flow Rate FiO2 09/01/23 04:40 36.5 58 20 130/72 (91) Room Air 09/01/23 04:24 98 Room Air 09/01/23 00:34 36.8 56 16 117/56 (76) 99 Room Air 08/31/23 23:28 98 Room Air 08/31/23 21:07 36.4 60 16 132/74 (93) 97 Room Air 08/31/23 19:54 98 Room Air 08/31/23 16:00 64 21 132/72 (92) 99 Room Air 08/31/23 15:05 37.1 08/31/23 15:01 97 Room Air 08/31/23 15:00 66 24 126/68 (87) 98 Room Air 08/31/23 14:00 66 15 123/72 (89) 97 Room Air 08/31/23 13:00 68 28 129/75 (93) 98 Room Air 08/31/23 12:28 69 08/31/23 12:00 66 24 97 Room Air 08/31/23 11:19 36.1 08/31/23 11:04 98 Room Air 08/31/23 11:00 65 20 124/69 (87) 97 Room Air 08/31/23 10:00 61 19 129/69 (89) 99 Room Air 08/31/23 09:00 61 27 131/90 (104) 99 Room Air 08/31/23 08:04 36.2 08/31/23 08:00 59 21 124/75 (91) 99 Room Air 08/31/23 08:00 98 Room Air I & O 09/01/23 07:00 Intake Total 3006 ml Output Total 650 ml Balance 2356 ml Capillary Refill : Less Than 3 Seconds General Appearance: No Apparent Distress, WD/WN HEENT: PERRL/EOMI, Pharynx Normal Neck: Non Tender Respiratory: Lungs Clear, No Accessory Muscle Use, No Respiratory Distress Cardiovascular: No Edema Peripheral Pulses: 2+ Dorsalis Pedis (R), 2+ Left Dors-Pedis (L), 2+ Radial Pulses (R), 2+ Radial Pulses (L) Gastrointestinal: soft; No distended, No guarding; tenderness (RUQ) Extremity: Non Tender Neurologic/Psychiatric: Alert, Normal Mood/Affect Skin: Normal Color, Warm/Dry Results Lab Laboratory Tests 08/31/23 08:38: Glucometer 132H 08/31/23 09:37: Glucometer 186H 08/31/23 10:34: Glucometer 185H 08/31/23 11:23: Glucometer 174H 08/31/23 15:07: Sodium Level 133L, Potassium Level 4.4, Chloride Level 107, Carbon Dioxide Level 14L, Anion Gap 12, Blood Urea Nitrogen 18, Creatinine 1.04, Estimat Glomerular Filtration Rate 87, BUN/Creatinine Ratio 17, Glucose Level 180H, Calcium Level 8.9, Beta-Hydroxybutyrate (Chem panel) 2.59H 08/31/23 19:00: Glucometer 195H 08/31/23 22:09: Glucometer 196H 08/31/23 23:51: Glucometer 214H 09/01/23 05:13: Glucometer 167H 09/01/23 05:20: White Blood Count 6.3, Red Blood Count 4.54, Hemoglobin 13.2L, Hematocrit 39L, Mean Corpuscular Volume 86, Mean Corpuscular Hemoglobin 29, Mean Corpuscular Hemoglobin Concent 34, Red Cell Distribution Width 12.9, Platelet Count 192, Mean Platelet Volume 12.0, Immature Granulocyte % (Auto) 1, Neutrophils (%) (Auto) 68, Lymphocytes (%) (Auto) 18, Monocytes (%) (Auto) 12, Eosinophils (%) (Auto) 1, Basophils (%) (Auto) 0, Neutrophils # (Auto) 4.3, Lymphocytes # (Auto) 1.1, Monocytes # (Auto) 0.8, Eosinophils # (Auto) 0.1, Basophils # (Auto) 0.0, Immature Granulocyte # (Auto) 0.1, Phosphorus Level 2.2L, Magnesium Level 2.1 Microbiology 08/30/23 Blood Culture - Preliminary, Resulted 08/30/23 Urine Culture - Final, Complete Gram Pos Mixed Bacterial Yazmin 08/30/23 MRSA Screen - Final, Complete MRSA not isolated Assessment/Plan Assessment/Plan Assessment/Plan DKA gall bladder wall thickening on ct & US GERD electrolyte abnormalities DKA and electrolytes improving, glucose back to baseline continue abx Ambulate Schedule cholecystectomy for tomorrow STEVENSON MENENDEZ DO 09/01/23 1401: Subjective Subjective/Events-last exam Still with abdominal pain. RUQ is location. Eating potato chips currently. Blood sugars improved. Currently denies n/v fever sweats chills shortness of breath or chest pain. Had u/s this am: Nonspecific diffuse gallbladder wall thickening with slightly asymmetric focal wall thickening that could represent sessile polyp which measures 1.7 x 0.7 cm (image 9 of 16) versus asymmetric wall thickening, or adherent gallstones. Objective Exam General Appearance: No Apparent Distress, WD/WN HEENT: PERRL/EOMI, Normal ENT Inspection Neck: Non Tender, Supple Respiratory: Chest Non Tender, No Accessory Muscle Use, No Respiratory Distress Cardiovascular: Regular Rate, Rhythm, No JVD Gastrointestinal: soft, tenderness (RUQ) Extremity: Non Tender, No Calf Tenderness Neurologic/Psychiatric: Alert, Oriented x3 Skin: Normal Color, Warm/Dry Lymphatic: No Adenopathy Assessment/Plan Assessment/Plan Assessment/Plan DKA gall bladder wall thickening on ct & US as noted as above. GERD electrolyte abnormalities DKA and electrolytes improving, glucose back to baseline continue abx Ambulate Schedule lap cholecystectomy c ioc for tomorrow he understands risks and benefits. Supervisory-Addendum Brief Verification & Attestation Participated in pt care: history, MDM, physical Personally performed: exam, history, MDM, supervision of care Care discussed with: Medical Student Procedures: n/a Results interpretation: Verified all documentation Verification and Attestation of Medical Student E/M Service A medical student performed and documented this service in my presence. I reviewed and verified all information documented by the medical student and made modifications to such information, when appropriate. I personally performed the physical exam and medical decision making. Stevenson Menendez, Sep 01, 2023,14:01 BLAIR ALVAREZ Sep 01, 2023 08:03 STEVENSON MENENDEZ DO Sep 01, 2023 14:01
--- NOTE | 2023-09-01 09:40 | Diagnostic Imaging Report ---
PROCEDURE: US Abdomen, limited. TECHNIQUE: Multiple realtime grayscale images were obtained over the abdomen in various projections. INDICATION: Abdominal pain COMPARISON: CT of the abdomen and pelvis on 08/30/2023. FINDINGS: The liver is normal. It measures 19.0 cm. Normal portal vein with hepatopedal flow. Gallbladder demonstrates a wall thickening measuring 0.4 cm. No apparent stones identified. The common bile duct is 0.5 cm. The pancreas and aorta are not well seen due to overlying bowel gas. Normal IVC. Negative Marks sign. No ascites. The right kidney is normal measuring 12.3 cm. IMPRESSION: Nonspecific diffuse gallbladder wall thickening with slightly asymmetric focal wall thickening that could represent sessile polyp which measures 1.7 x 0.7 cm (image 9 of 16) versus asymmetric wall thickening, or adherent gallstones. Dictated by: Dictated on workstation # [id number]
[2023-09-01 11:02] LABS: POTASSIUM 3.9 MMOL/L (3.6-5.0)
[2023-09-01 11:03] LABS: CALCIUM 9.1 MG/DL (8.5-10.1)
[2023-09-01 11:08] LABS: CREATININE SERUM 0.85 MG/DL (0.60-1.30)
[2023-09-01] MEDS: ENOXAPARIN 40 MG/0.4 ML SYRINGE SQ SCH (11:49)
[2023-09-01 12:02] VITALS: BP 155/79
--- NOTE | 2023-09-01 12:17 | Progress Note - Hospitalist ---
Subjective HPI/CC On Admission Date Seen by Provider: Sep 01, 2023 Subjective/Events-last exam Pt reports doing better today. Abd pain still present but able to eat. Eating sour cream and onion potato chips currently and state they don't bother his stomach. Discussed with Dr Menendez and planning for cholecystectomy tomorrow. Focused Exam Lactate Level 08/30/23 12:55: Lactic Acid Level 2.25*H 08/30/23 16:26: Lactic Acid Level 2.09*H Objective Exam Vital Signs Vital Signs Date Time Temp Pulse Resp B/P (MAP) Pulse Ox O2 Delivery O2 Flow Rate FiO2 09/01/23 12:02 36.9 64 16 155/79 (104) 98 Room Air Capillary Refill : Less Than 3 Seconds General Appearance: No Apparent Distress, WD/WN Respiratory: Lungs Clear, No Respiratory Distress Cardiovascular: Regular Rate, Rhythm, No Murmur Gastrointestinal: Normal Bowel Sounds, Soft Neurologic/Psychiatric: Alert, Oriented x3 Results/Procedures Lab Laboratory Tests 08/31/23 15:07 09/01/23 05:20 Patient resulted labs reviewed. Assessment/Plan Assessment and Plan Assess & Plan/Chief Complaint Assessment DKA- resolved Cholecystitis VANNA- resolved Plan DKA resolved, back on basal and bolus insulin Surgery planning cholecysectomy tomorrow IVF Cont IV abx likely home tomorrow postop Critical Care Critically Ill Patient LAURA MCGUIRE MD Sep 01, 2023 12:17
[2023-09-01 16:14] VITALS: BP 142/75
[2023-09-01 20:03] VITALS: BP 153/71
[2023-09-02] VITALS (13 sets, daily range): BP systolic 117–167; BP diastolic 64–92
[2023-09-02] MEDS: PIPERACILLIN/Tazobactam 4.5 GM in NS (IVPB) 100 ML 100 ML IV SCH ×4 (03:13→17:25)
[2023-09-02] MEDS: NS IV 1000 ML 1,000 ML IV SCH ×3 (03:13→17:29)
[2023-09-02 06:01] LABS: BASOPHILS % (AUTO) 0 % (0-10); EOSINOPHILS # (AUTO) 0.1 10^3/uL (0.0-0.3); EOSINOPHILS % (AUTO) 1 % (0-10); HEMATOCRIT 37 % (40-54); HEMOGLOBIN 12.6 g/dL (13.3-17.7); LYMPHOCYTES # (AUTO) 1.3 10^3/uL (1.0-4.0); LYMPHOCYTES % (AUTO) 25 % (12-44); MEAN CORPUSCULAR HEMOGLOBIN 30 pg (25-34); MEAN CORPUSCULAR HGB CONC 35 g/dL (32-36); MEAN CORPUSCULAR VOLUME 86 fL (80-99); MEAN PLATELET VOLUME 11.9 fL (9.0-12.2); MONOCYTES # (AUTO) 0.5 10^3/uL (0.0-1.0); MONOCYTES % (AUTO) 11 % (0-12); NEUTROPHILS # (AUTO) 3.1 10^3/uL (1.8-7.8); NEUTROPHILS % (AUTO) 62 % (42-75); PLATELET COUNT 183 10^3/uL (130-400); WHITE BLOOD COUNT 5.1 10^3/uL (4.3-11.0)
[2023-09-02 06:32] LABS: CALCIUM 8.8 MG/DL (8.5-10.1); CREATININE SERUM 0.83 MG/DL (0.60-1.30); PHOSPHORUS 2.8 MG/DL (2.3-4.7); POTASSIUM 3.9 MMOL/L (3.6-5.0)
[2023-09-02] MEDS: inSUlin ASPART 1 UNIT/0.01 ML (PER UNIT) SC SCH ×4 (06:37→20:25)
[2023-09-02] MEDS ORDERED: LIDOCAINE 2% w/EPI 1:100,000 20 ML VIAL ONE (06:55)
--- NOTE | 2023-09-02 07:21 | Progress Note - Surgery ---
BLAIR ALVAREZ 09/02/23 0721: Subjective Date Seen by a Provider: Sep 02, 2023 Time Seen by a Provider: 06:50 Subjective/Events-last exam Not much has change with the patient since last visit. He is still experiencing RUQ pain. Only complaint is being hungry and is ready to go home. Denies any nausea, vomiting, chest pain, headache. Cholecystectomy is scheduled for today, but time is yet to be determined. Review of Systems General: No Chills, No Night Sweats HEENT: No Head Aches, No Visual Changes Pulmonary: No Dyspnea, No Cough Cardiovascular: No: Chest Pain Gastrointestinal: Abdominal Pain; No: Nausea, Vomiting Genitourinary: No Dysuria, No Frequency Musculoskeletal: No: neck pain, shoulder pain Neurological: No: Change in speech, Confusion Focused Exam Lactate Level 08/30/23 12:55: Lactic Acid Level 2.25*H 08/30/23 16:26: Lactic Acid Level 2.09*H Objective Exam Vital Signs Date Time Temp Pulse Resp B/P (MAP) Pulse Ox O2 Delivery O2 Flow Rate FiO2 09/02/23 03:00 36.0 23 16 128/75 (92) 99 Room Air 09/02/23 00:00 36.6 49 16 136/67 (90) 99 Room Air 09/01/23 20:03 36.4 48 16 153/71 (98) 97 Room Air 09/01/23 20:00 97 Room Air 09/01/23 16:14 36.8 50 17 142/75 (97) Room Air 09/01/23 12:02 36.9 64 16 155/79 (104) 98 Room Air 09/01/23 08:00 36.5 59 16 145/75 (98) 98 Room Air 09/01/23 08:00 Room Air I & O 09/02/23 07:00 Intake Total 2100 ml Balance 2100 ml Capillary Refill : Less Than 3 Seconds General Appearance: No Apparent Distress, WD/WN HEENT: PERRL/EOMI Neck: Non Tender, Supple Respiratory: Normal Breath Sounds, No Accessory Muscle Use, No Respiratory Distress Cardiovascular: Regular Rate, Rhythm Gastrointestinal: soft, tenderness (RUQ) Extremity: Normal Inspection Neurologic/Psychiatric: Alert, Oriented x3, Normal Mood/Affect Skin: Normal Color, Warm/Dry Results Lab Laboratory Tests 09/01/23 11:03: Glucometer 244H 09/01/23 16:20: Glucometer 283H 09/01/23 16:21: Beta-Hydroxybutyrate (Chem panel) 1.97H 09/01/23 20:08: Glucometer 258H 09/02/23 05:19: White Blood Count 5.1, Red Blood Count 4.25L, Hemoglobin 12.6L, Hematocrit 37L, Mean Corpuscular Volume 86, Mean Corpuscular Hemoglobin 30, Mean Corpuscular Hemoglobin Concent 35, Red Cell Distribution Width 12.7, Platelet Count 183, Mean Platelet Volume 11.9, Immature Granulocyte % (Auto) 1, Neutrophils (%) (Auto) 62, Lymphocytes (%) (Auto) 25, Monocytes (%) (Auto) 11, Eosinophils (%) (Auto) 1, Basophils (%) (Auto) 0, Neutrophils # (Auto) 3.1, Lymphocytes # (Auto) 1.3, Monocytes # (Auto) 0.5, Eosinophils # (Auto) 0.1, Basophils # (Auto) 0.0, Immature Granulocyte # (Auto) 0.0, Sodium Level 135, Potassium Level 3.9, Chloride Level 106, Carbon Dioxide Level 17L, Anion Gap 12, Blood Urea Nitrogen 16, Creatinine 0.83, Estimat Glomerular Filtration Rate 107, BUN/Creatinine Ratio 19, Glucose Level 297H, Calcium Level 8.8, Phosphorus Level 2.8, Magnesium Level 2.0 Microbiology 08/30/23 Blood Culture - Preliminary, Resulted 08/30/23 Urine Culture - Final, Complete Gram Pos Mixed Bacterial Yazmin 08/30/23 MRSA Screen - Final, Complete MRSA not isolated Assessment/Plan Assessment/Plan Assessment/Plan DKA - resolved gall bladder wall thickening on ct & US as noted as above. GERD electrolyte abnormalities Lap cholecystectomy scheduled for today NPO Preoperative management STEVENSON MENENDEZ DO 09/02/23 1125: Subjective Subjective/Events-last exam No change from yesterday. Still ruq pain but better . NPO. Denies n/v fever sweats chills shortness of breath or chest pain. Objective Exam General Appearance: No Apparent Distress, WD/WN HEENT: PERRL/EOMI, Normal ENT Inspection Neck: Non Tender, Supple Respiratory: Chest Non Tender, No Accessory Muscle Use, No Respiratory Distress Cardiovascular: Regular Rate, Rhythm, No JVD Gastrointestinal: soft, tenderness (RUQ) Extremity: Normal Inspection Neurologic/Psychiatric: Alert, Oriented x3 Skin: Normal Color, Warm/Dry Lymphatic: No Adenopathy Assessment/Plan Assessment/Plan Assessment/Plan DKA - resolved gall bladder wall thickening on ct & US GERD electrolyte abnormalities NPO IV hydration Plan lap jad c ioc today. Supervisory-Addendum Brief Verification & Attestation Participated in pt care: history, MDM, physical Personally performed: exam, history, MDM, supervision of care Care discussed with: Medical Student Procedures: n/a Results interpretation: Verified all documentation Verification and Attestation of Medical Student E/M Service A medical student performed and documented this service in my presence. I reviewed and verified all information documented by the medical student and made modifications to such information, when appropriate. I personally performed the physical exam and medical decision making. Stevenson Menendez, Sep 02, 2023,11:25 BLAIR ALVAREZ Sep 02, 2023 07:21 STEVENSON MENENDEZ DO Sep 02, 2023 11:25
[2023-09-02] MEDS: ENOXAPARIN 40 MG/0.4 ML SYRINGE SQ SCH ×2 (09:36→12:09)
--- NOTE | 2023-09-02 10:04 | Discharge Summary ---
Discharge Summary Hospital Course Was the Problem List Reviewed?: Yes Problems/Dx: (1) DKA (diabetic ketoacidosis) Qualifiers: Qualified Codes: E11.10 - Type 2 diabetes mellitus with ketoacidosis without coma (2) Cholecystitis Hospital Course Date of Admission: Aug 30, 2023 at 20:18 Admission Diagnosis : Family Physician/Provider: Date of Discharge: 09/02/23 Discharge Diagnosis: [ ] Hospital Course: Course: Maurice is a 48 year old male that presented to the ED on 08/30 due to nausea and vomiting. Maurice noted that he was puking for the past 3 days and had lost all appetite. He has a history of insulin dependent diabetes. In the ED it was noted that he has elevated glucose. It was also found that his pH was 7.08. UA showed 3+ ketones with moderate bacteria. This supported her diagnosis of DKA. Her CT also found acalculus cholecystitis. Maurice was treated with IV insulin to normalize his glucose. Once this was corrected, US found gallbladder wall thickening. Surgery was consulted and showed potential medical benefits from a laproscopic cholecystectomy. This surgery was scheduled for 09/02. His UTI has also been treated with Zosyn and will be continued to be treated with PO abx per discharge orders. Barring any issues with surgery, Maurice should be able to discharge home. He notes that he has home insulin and will monitor his glucose. He has no other concerns. He will return home with help from family. Labs and Pending Lab Test: Laboratory Tests 09/01/23 11:03: Glucometer 244H 09/01/23 16:20: Glucometer 283H 09/01/23 16:21: Beta-Hydroxybutyrate (Chem panel) 1.97H 09/01/23 20:08: Glucometer 258H 09/02/23 05:19: White Blood Count 5.1, Red Blood Count 4.25L, Hemoglobin 12.6L, Hematocrit 37L, Mean Corpuscular Volume 86, Mean Corpuscular Hemoglobin 30, Mean Corpuscular Hemoglobin Concent 35, Red Cell Distribution Width 12.7, Platelet Count 183, Mean Platelet Volume 11.9, Immature Granulocyte % (Auto) 1, Neutrophils (%) (Auto) 62, Lymphocytes (%) (Auto) 25, Monocytes (%) (Auto) 11, Eosinophils (%) (Auto) 1, Basophils (%) (Auto) 0, Neutrophils # (Auto) 3.1, Lymphocytes # (Auto) 1.3, Monocytes # (Auto) 0.5, Eosinophils # (Auto) 0.1, Basophils # (Auto) 0.0, Immature Granulocyte # (Auto) 0.0, Sodium Level 135, Potassium Level 3.9, Chloride Level 106, Carbon Dioxide Level 17L, Anion Gap 12, Blood Urea Nitrogen 16, Creatinine 0.83, Estimat Glomerular Filtration Rate 107, BUN/Creatinine Ratio 19, Glucose Level 297H, Calcium Level 8.8, Phosphorus Level 2.8, Magnesium Level 2.0 Microbiology 08/30/23 Blood Culture - Preliminary, Resulted 08/30/23 Urine Culture - Final, Complete Gram Pos Mixed Bacterial Yazmin 08/30/23 MRSA Screen - Final, Complete MRSA not isolated Home Meds Active Reported Insulin Lispro Kwikpen U-100 (Insulin Lispro) 100 Unit/Ml Insuln.pen 9 Units SQ BID Pantoprazole Sodium 40 Mg Granpkt.dr 40 Mg PO DAILY Lisinopril 10 Mg Tablet 10 Mg PO DAILY Meloxicam 7.5 Mg Tablet 7.5 Mg PO Soliqua 100 Unit-33 Mcg/ml Pen (Insulin Glargine/Lixisenatide) 100 Unit-33 Mcg/Ml (3 Ml) Insuln.pen 33 Ml SQ HS Glucagon Emergency Kit (Glucagon HCl) 1 Mg Vial 1 Mg IJ PRN PRN Proventil Hfa (Albuterol Sulfate) 90 Mcg Hfa.aer.ad 2 Puff INH PRN Invokamet Xr 150-1,000 mg Tab (Canagliflozin/Metformin HCl) 150 Mg-1,000 Mg Tab.bp.24h 1 Each PO BID Atorvastatin Calcium 10 Mg Tablet 10 Mg PO HS Montelukast Sodium 10 Mg Tablet 10 Mg PO DAILY Aspirin EC (Aspirin) 81 Mg Tablet.dr 81 Mg PO DAILY Vitamin C (Ascorbic Acid) 1,000 Mg Tablet 1,000 Mg PO DAILY Garlic 1,000 Mg Capsule 1,000 Mg PO DAILY Vitamin D3 (Cholecalciferol (Vitamin D3)) 25 Mcg (1000 Unit) Capsule 25 Mcg PO DAILY Assessment/Pt Instructions PCP 1 week Discharge Planning: <30 minutes discharge planning Discharge Instructions Discharge Diet: ADA Diet Discharge Physical Examination Vital Signs Vital Signs Date Time Temp Pulse Resp B/P (MAP) Pulse Ox O2 Delivery O2 Flow Rate FiO2 09/02/23 08:30 Room Air 09/02/23 07:42 36.4 50 17 117/64 (81) 98 General Appearance: No Apparent Distress, WD/WN Allergies: Coded Allergies: No Known Drug Allergies (Unverified , 08/30/23) Discharge Summary Date of Admission Aug 30, 2023 at 20:18 Date of Discharge Discharge Date: Sep 02, 2023 JAYCOB GOLD DO Sep 02, 2023 10:04
--- NOTE | 2023-09-02 10:27 | Progress Note - Hospitalist ---
ISABELALEXEI 09/02/23 1027: Subjective HPI/CC On Admission Date Seen by Provider: Sep 02, 2023 Time Seen by Provider: 09:25 DKA Subjective/Events-last exam 09/02/2023: CC: DKA HPI: Maurice, 48M, notes that he has no concerns. He is feeling better. He is ready for his cholecystectomy and endorses some hunger. Patient understands that he is not able to eat due to NPO order. He has no questions about his procedure. He denies any return of N/V and notes that this was his first episode of DKA. He has no other concerns. He also denies any dysuria or issue with urination. Course: Maurice is a 48 year old male that presented to the ED on 08/30 due to nausea and vomiting. Maurice noted that he was puking for the past 3 days and had lost all appetite. He has a history of insulin dependent diabetes. In the ED it was noted that he has elevated glucose. It was also found that his pH was 7.08. UA showed 3+ ketones with moderate bacteria. This supported her diagnosis of DKA. Her CT also found acalculus cholecystitis. Maurice was treated with IV insulin to normalize his glucose. Once this was corrected, US found gallbladder wall thickening. Surgery was consulted and showed potential medical benefits from a laproscopic cholecystectomy. This surgery was scheduled for 09/02. His UTI has also been treated with Zosyn and will be continued to be treated with PO abx per discharge orders. Barring any issues with surgery, Maurice should be able to discharge home. He notes that he has home insulin and will monitor his glucose. He has no other concerns. He will return home with help from family. Review of Systems General: No Chills, No Night Sweats, No Fatigue, No Malaise, No Appetite, No Other HEENT: No Head Aches, No Visual Changes, No Eye Pain, No Ear Pain, No Dysphasia, No Sinus Congestion, No Post Nasal Drip, No Sore Throat, No Other Pulmonary: No Dyspnea, No Cough, No Pleuritic Chest Pain, No Other Cardiovascular: No: Chest Pain, Palpitations, Orthopnea, Paroxysmal Noc. Dyspnea, Edema, Lt Headedness, Other Gastrointestinal: No: Nausea, Vomiting, Abdominal Pain, Diarrhea, Constipation, Melena, Hematochezia, Other Genitourinary: No Dysuria, No Frequency, No Incontinence, No Hematuria, No Retention, No Other Musculoskeletal: No: other, neck pain, shoulder pain, arm pain, back pain, hand pain, leg pain, foot pain Neurological: No: Weakness, Numbness, Incoordination, Change in speech, Confusion, Seizures, Other Focused Exam Lactate Level 08/30/23 12:55: Lactic Acid Level 2.25*H 08/30/23 16:26: Lactic Acid Level 2.09*H Objective Exam Vital Signs Vital Signs Date Time Temp Pulse Resp B/P (MAP) Pulse Ox O2 Delivery O2 Flow Rate FiO2 09/02/23 08:30 Room Air 09/02/23 07:42 36.4 50 17 117/64 (81) 98 Capillary Refill : Less Than 3 Seconds General Appearance: No Apparent Distress, WD/WN HEENT: Normal ENT Inspection, Pharynx Normal, Moist Mucous Membranes Neck: Full Range of Motion, Normal Inspection, Non Tender, Supple Respiratory: Chest Non Tender, Lungs Clear, Normal Breath Sounds, No Accessory Muscle Use, No Respiratory Distress Cardiovascular: Regular Rate, Rhythm, No Edema, No Gallop, No JVD, No Murmur, Normal Peripheral Pulses Gastrointestinal: Normal Bowel Sounds, Non Tender, Soft Rectal: Deferred Back: Normal Inspection, No CVA Tenderness Extremity: Normal Capillary Refill, Normal Inspection, Non Tender, No Calf Tenderness, No Pedal Edema Neurologic/Psychiatric: Alert, Oriented x3, No Motor/Sensory Deficits, Normal 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 Assessment/Plan Assessment and Plan Assess & Plan/Chief Complaint 09/02/2023: A/P -DKA * glucose monitoring * insulin -Acalculous Cholecystitis * Dr. Menendez consult * 09/02 lap jad * F/U with Dr. Menendez -UTI * TAMRA Mccord DO 09/03/23 0429: Supervisory-Addendum Brief Verification & Attestation Participated in pt care: history, MDM, physical Personally performed: exam, history, MDM, supervision of care Care discussed with: Medical Student Procedures: n/a Results interpretation: Verified all documentation Verification and Attestation of Medical Student E/M Service A medical student performed and documented this service in my presence. I reviewed and verified all information documented by the medical student and made modifications to such information, when appropriate. I personally performed the physical exam and medical decision making. Tamra Gold, Sep 03, 2023,04:29 ALEXEI HALL Sep 02, 2023 10:27 TAMRA GOLD DO Sep 03, 2023 04:29
[2023-09-02] MEDS: LACTATED RINGERS 1,000 ML 1,000 ML IV PRN ×2 (12:30→14:15)
[2023-09-02] MEDS ORDERED: MIDAZOLAM INJ 2 MG/2 ML VIAL ONE (12:34)
[2023-09-02] MEDS ORDERED: fentaNYL INJECTION 100 MCG/2 ML VIAL ONE (12:34)
[2023-09-02] MEDS ORDERED: LIDOCAINE PF 2% 5 ML VIAL ONE (13:01)
[2023-09-02] MEDS ORDERED: ROCURONIUM 50 MG/5 ML VIAL IV ONE (13:01)
[2023-09-02] MEDS ORDERED: proPOfol INJECTION 200 MG/20 ML VIAL IV ONE (13:01)
[2023-09-02] MEDS ORDERED: dexAMETHasone INJ 10 MG/ML 1 ML VIAL ONE (13:01)
[2023-09-02] MEDS ORDERED: ONDANSETRON INJECTION 4 MG/2 ML (SDV) ONE (13:01)
[2023-09-02] MEDS ORDERED: HYDROmorphone INJECTION 2 MG/ML VIAL ONE (13:11)
[2023-09-02] MEDS ORDERED: GLYCOPYRROLATE INJ 0.2 MG/ML 2 ML VIAL ONE (13:14)
[2023-09-02] MEDS ORDERED: NEOSTIGMINE 1 MG/1ML 10 ML VIAL ONE (13:14)
[2023-09-02] MEDS ORDERED: SEVOFLURANE (ULTANE) 15 ML INHAL SOLN ONE (14:31)
[2023-09-02] MEDS ORDERED: morphine INJ 10 MG/ML 1ML (SYR OR VIAL) ONE (14:49)
[2023-09-02] MEDS ORDERED: HYDROmorphone INJECTION 2 MG/ML VIAL IV ONE (15:00)
[2023-09-02] MEDS ORDERED: morphine INJ 10 MG/ML 1ML (SYR OR VIAL) IVP ONE (15:00)
[2023-09-02] MEDS ORDERED: ONDANSETRON INJECTION 4 MG/2 ML (SDV) IVP PRN (15:00)
--- NOTE | 2023-09-02 15:29 | Progress Note-Post Operative ---
Post-Operative Progess Note Surgeon (s)/Senior Qa Automation Engineer (s) Surgeon STEVENSON DESAI DO Senior Qa Automation Engineer: Dr. Centeno to assist in retraction dissection and closure. Pre-Operative Diagnosis gallbladder wall thickening, ruq abdominal pain Post-Operative Diagnosis acute on chronic cholecystitis, hydrops gallbladder Procedure & Operative Findings Date of Procedure 09/02/23 Procedure Performed/Findings PROCEDURE: Laparoscopic cholecystectomy with intraoperative cholangiogram. COMPLICATIONS: None. PROCEDURE: The patient was taken to the operating suite and was prepped and draped in sterile fashion. A surgical pause was performed. Just superior to the umbilicus, a 12 mm incision was made. Dissection was taken down to the fascia, which was then scored and grasped with a Jill and the abdomen was then entered. A 0 Vicryl suture was placed in a fpbemd-ga-tvecd fashion and a Thurston trocar was placed and secured. Pneumoperitoneum was achieved. A 5mm trochar place in the subxyphoid and 2 in the right upper quadrant. The gallbladder was then grasped by Dr. Centeno and elevated. Multiple adhesions had to be taken down and the gallbladder was then entirely visualized.The cystic duct, was then dissected out. Clip was placed on the distal portion of the cystic duct which was then partially transected. An arrow catheter was inserted into the duct. The cholangiogram was then performed. No filing defects and contrast made its way into the duodenum. Catheter removed. Clips were placed on proximal portion of the cystic duct and then the duct was then transected. Clips were placed along the proximal and distal portion of the cystic artery after it was dissected out and then transected. Hook cautery was used to dissect the gallbladder from the gallbladder fossa achieving hemostasis. The gallbladde had small hole made in it clear and then purulent materail came from it. The gallbladder was placed in an Endobag and removed through the 12 mm trocar site. The abdomen was then reinspected. Copious amounts of irrigation were used to irrigate the abdomen and there were no signs of active bleeding. Hemostasis had been achieved. 19 wisam drain was placed in the gallbladder fossa and secured through one of the 5 mm trochar sites. The 12 mm fascial defect was then closed with 0 Vicryl suture that had been placed in a bcdpsk-an-kqlys fashion. The abdomen was then desufflated, the trocars were removed. The abdomen was then washed and dried. The skin was then closed using 4-0 Monocryl in a subcuticular fashion. The abdomen was washed and dried and Skin Affix was place over incisions. Patient tolerated the procedure well without any complications and was taken to the recovery room in stable condition. Anesthesia Type general Estimated Blood Loss Estimated blood loss (mL): minimal Specimens/Packing Specimens Removed gallbladder Packin wisam drain STEVENSON DESAI DO Sep 02, 2023 15:29
--- NOTE | 2023-09-02 17:45 | Diagnostic Imaging Report ---
INDICATION: Cholecystectomy Operative cholangiogram performed in the routine fashion. 73 views were obtained, 13.6 seconds of fluoroscopy time were used. 995.68 mrad of exposure Intraoperative views demonstrate contrast injection through the cystic duct stump. The biliary tree is nondilated. There is a small amount reflux in the pancreatic duct. Contrast passes through the duodenum without obstruction. IMPRESSION: Unremarkable operative cholangiogram. Dictated by: Dictated on workstation # [id number]
[2023-09-02] MEDS: HYDROcodone/ACETAMINOPHEN 5 MG/325 MG TABLET PO PRN ×2 (18:18→22:52)
[2023-09-03] MEDS: PIPERACILLIN/Tazobactam 4.5 GM in NS (IVPB) 100 ML 100 ML IV SCH ×2 (02:41→10:36)
[2023-09-03] MEDS: HYDROcodone/ACETAMINOPHEN 5 MG/325 MG TABLET PO PRN ×2 (02:47→09:35)
[2023-09-03 03:11] VITALS: BP 132/84
[2023-09-03] MEDS: NS IV 1000 ML 1,000 ML IV SCH (05:12)
[2023-09-03] MEDS: inSUlin ASPART 1 UNIT/0.01 ML (PER UNIT) SC SCH ×2 (05:12→11:13)
[2023-09-03 05:29] LABS: BASOPHILS % (AUTO) 0 % (0-10); EOSINOPHILS % (AUTO) 0 % (0-10); HEMATOCRIT 39 % (40-54); HEMOGLOBIN 13.2 g/dL (13.3-17.7); LYMPHOCYTES # (AUTO) 1.2 10^3/uL (1.0-4.0); LYMPHOCYTES % (AUTO) 12 % (12-44); MEAN CORPUSCULAR HEMOGLOBIN 30 pg (25-34); MEAN CORPUSCULAR HGB CONC 34 g/dL (32-36); MEAN CORPUSCULAR VOLUME 86 fL (80-99); MEAN PLATELET VOLUME 10.9 fL (9.0-12.2); MONOCYTES # (AUTO) 0.9 10^3/uL (0.0-1.0); MONOCYTES % (AUTO) 9 % (0-12); NEUTROPHILS % (AUTO) 79 % (42-75); PLATELET COUNT 238 10^3/uL (130-400); WHITE BLOOD COUNT 10.2 10^3/uL (4.3-11.0)
[2023-09-03 05:52] LABS: MAGNESIUM 1.8 MG/DL (1.6-2.4); PHOSPHORUS 2.8 MG/DL (2.3-4.7)
[2023-09-03 07:30] VITALS: BP 159/89
--- NOTE | 2023-09-03 07:47 | Anesthesia-General Post-Op ---
General Patient Condition Mental Status/LOC: Same as Preop Cardiovascular: Satisfactory Nausea/Vomiting: Absent Respiratory: Satisfactory Pain: Controlled Complications: Absent Post Op Complications Complications None Follow Up Care/Instructions Patient Instructions None needed. Anesthesia/Patient Condition Patient Condition Patient is doing well, no complaints, stable vital signs, no apparent adverse anesthesia problems. No complications reported per nursing. COSMO GOMEZ CRNA Sep 03, 2023 07:47
--- NOTE | 2023-09-03 09:38 | Progress Note - Surgery ---
BLAIR ALVAREZ 09/03/23 0938: Subjective Date Seen by a Provider: Sep 03, 2023 Time Seen by a Provider: 06:40 Subjective/Events-last exam Patient just had surgery and states that his abdomen is sore, especially the incision. Is not experiencing RUQ anymore. Pain medication has been helping. Nurse states that he is tolerating a clear diet. WISAM drainage for the day shift yesterday was 200 ml. 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 WISAM drain contents was serosanguineous. Denies any fever, chills, chest pain, visual changes, headache, nausea or vomiting. Incision looks healthy, no erythema. Objective Exam Vital Signs Date Time Temp Pulse Resp B/P (MAP) Pulse Ox O2 Delivery O2 Flow Rate FiO2 09/03/23 07:30 36.4 60 16 159/89 (112) 98 Room Air 09/03/23 03:11 36.4 65 20 132/84 (100) 98 Room Air 09/02/23 23:13 36.4 58 18 145/78 (100) 97 Room Air 09/02/23 20:23 36.4 76 17 157/81 (106) 98 Room Air 09/02/23 19:25 Room Air 09/02/23 16:15 36.6 70 19 156/78 (104) 96 Room Air 09/02/23 15:35 Room Air 09/02/23 15:30 36.6 14 158/81 (106) 94 Room Air 09/02/23 15:25 Nasal Cannula 2.00 09/02/23 15:20 14 130/73 (92) 95 Nasal Cannula 2.00 09/02/23 15:10 14 142/71 (94) 95 Nasal Cannula 2.00 09/02/23 15:10 Nasal Cannula 2.00 09/02/23 15:00 20 161/78 (105) 100 Nasal Cannula 2.00 09/02/23 14:55 Nasal Cannula 2.00 09/02/23 14:50 16 160/83 (108) 100 Nasal Cannula 2.00 09/02/23 14:42 36.5 20 167/92 (117) 99 OxyMask 8 09/02/23 14:42 OxyMask 8 09/02/23 12:14 36.5 55 18 120/65 (83) 97 Room Air I & O 09/03/23 07:00 Intake Total 3680 ml Output Total 1275 ml Balance 2405 ml Capillary Refill : Less Than 3 Seconds General Appearance: No Apparent Distress, WD/WN HEENT: PERRL/EOMI, Normal ENT Inspection Neck: Non Tender, Supple Respiratory: Chest Non Tender, No Accessory Muscle Use, No Respiratory Distress Cardiovascular: Regular Rate, Rhythm, No JVD Gastrointestinal: soft, tenderness (Sore after surgery, incision is sore) Extremity: Normal Inspection Neurologic/Psychiatric: Alert, Oriented x3 Skin: Normal Color, Warm/Dry Results Lab Laboratory Tests 09/02/23 10:27: Glucometer 240H 09/02/23 14:47: Glucometer 322H 09/02/23 16:14: Glucometer 301H 09/02/23 16:32: Beta-Hydroxybutyrate (Chem panel) 5.64H 09/02/23 19:51: Glucometer 305H 09/03/23 05:07: Glucometer 201H 09/03/23 05:20: White Blood Count 10.2, Red Blood Count 4.48, Hemoglobin 13.2L, Hematocrit 39L, Mean Corpuscular Volume 86, Mean Corpuscular Hemoglobin 30, Mean Corpuscular He moglobin Concent 34, Red Cell Distribution Width 12.8, Platelet Count 238, Mean Platelet Volume 10.9, Immature Granulocyte % (Auto) 0, Neutrophils (%) (Auto) 79H, Lymphocytes (%) (Auto) 12, Monocytes (%) (Auto) 9, Eosinophils (%) (Auto) 0, Basophils (%) (Auto) 0, Neutrophils # (Auto) 8.0H, Lymphocytes # (Auto) 1.2, Monocytes # (Auto) 0.9, Eosinophils # (Auto) 0.0, Basophils # (Auto) 0.0, Immature Granulocyte # (Auto) 0.0, Phosphorus Level 2.8, Magnesium Level 1.8 Microbiology 08/30/23 Blood Culture - Preliminary, Resulted 08/30/23 Urine Culture - Final, Complete Gram Pos Mixed Bacterial Yazmin 08/30/23 MRSA Screen - Final, Complete MRSA not isolated Assessment/Plan Assessment/Plan Assessment/Plan DKA - resolved Lap cholecystectomy gall bladder wall thickening on ct & US GERD electrolyte abnormalities - resolved [place] diet Will be discharged at noon STEVENSON MENENDEZ DO 09/03/232028: Subjective Subjective/Events-last exam Pain controlled. Wisam drain serosang. Tolerating clears. Denies n/v fever sweats chills shortness of breath or chest pain. Objective Exam General Appearance: No Apparent Distress, WD/WN HEENT: PERRL/EOMI, Normal ENT Inspection Neck: Non Tender, Supple Respiratory: Chest Non Tender, No Accessory Muscle Use, No Respiratory Distress Cardiovascular: Regular Rate, Rhythm, No JVD Gastrointestinal: soft, tenderness (no signs of infection, clean dry intact. wisam drain serosang) Extremity: Normal Inspection Neurologic/Psychiatric: Alert, Oriented x3 Skin: Normal Color, Warm/Dry Lymphatic: No Adenopathy Assessment/Plan Assessment/Plan Assessment/Plan DKA - resolved Lap cholecystectomy c ioc GERD electrolyte abnormalities - resolved advance diet pain control wisam drain until less than 30 mL in 24 hrs, can dc home today. Supervisory-Addendum Brief Verification & Attestation Participated in pt care: history, MDM, physical Personally performed: exam, history, MDM, supervision of care Care discussed with: Medical Student Procedures: n/a Results interpretation: Verified all documentation Verification and Attestation of Medical Student E/M Service A medical student performed and documented this service in my presence. I reviewed and verified all information documented by the medical student and made modifications to such information, when appropriate. I personally performed the physical exam and medical decision making. Stevenson Menendez, Sep 03, 2023,20:29 BLAIR ALVAREZ Sep 03, 2023 09:38 STEVENSON MENENDEZ DO Sep 03, 2023 20:29
[2023-09-03] MEDS: ENOXAPARIN 40 MG/0.4 ML SYRINGE SQ SCH (11:09)
[2023-09-03 11:29] VITALS: BP 149/86
--- NOTE | 2023-09-03 11:33 | Discharge Summary ---
Discharge Summary Hospital Course Problems/Dx: (1) DKA (diabetic ketoacidosis) Qualifiers: Qualified Codes: E11.10 - Type 2 diabetes mellitus with ketoacidosis without coma (2) Cholecystitis Hospital Course Date of Admission: Aug 30, 2023 at 20:18 Admission Diagnosis : Family Physician/Provider: Date of Discharge: 09/03/23 Discharge Diagnosis: [ ] Hospital Course: Course: Maurice is a 48 year old male that presented to the ED on 08/30 due to nausea and vomiting. Maurice noted that he was puking for the past 3 days and had lost all appetite. He has a history of insulin dependent diabetes. In the ED it was noted that he has elevated glucose. It was also found that his pH was 7.08. UA showed 3+ ketones with moderate bacteria. This supported her diagnosis of DKA. Her CT also found acalculus cholecystitis. Maurice was treated with IV insulin to normalize his glucose. Once this was corrected, US found gallbladder wall thickening. Surgery was consulted and showed potential medical benefits from a laproscopic cholecystectomy. This surgery was scheduled for 09/02. His UTI has also been treated with Zosyn and will be continued to be treated with PO abx per discharge orders. Barring any issues with surgery, Maurice should be able to discharge home. He notes that he has home insulin and will monitor his glucose. He has no other concerns. He will return home with help from family. Labs and Pending Lab Test: Laboratory Tests 09/02/23 14:47: Glucometer 322H 09/02/23 16:14: Glucometer 301H 09/02/23 16:32: Beta-Hydroxybutyrate (Chem panel) 5.64H 09/02/23 19:51: Glucometer 305H 09/03/23 05:07: Glucometer 201H 09/03/23 05:20: White Blood Count 10.2, Red Blood Count 4.48, Hemoglobin 13.2L, Hematocrit 39L, Mean Corpuscular Volume 86, Mean Corpuscular Hemoglobin 30, Mean Corpuscular Hemoglobin Concent 34, Red Cell Distribution Width 12.8, Platelet Count 238, Mean Platelet Volume 10.9, Immature Granulocyte % (Auto) 0, Neutrophils (%) (Auto) 79H, Lymphocytes (%) (Auto) 12, Monocytes (%) (Auto) 9, Eosinophils (%) (Auto) 0, Basophils (%) (Auto) 0, Neutrophils # (Auto) 8.0H, Lymphocytes # (Auto) 1.2, Monocytes # (Auto) 0.9, Eosinophils # (Auto) 0.0, Basophils # (Auto) 0.0, Immature Granulocyte # (Auto) 0.0, Phosphorus Level 2.8, Magnesium Level 1.8 09/03/23 10:58: Glucometer 212H Microbiology 08/30/23 Blood Culture - Preliminary, Resulted 08/30/23 Urine Culture - Final, Complete Gram Pos Mixed Bacterial Yazmin 08/30/23 MRSA Screen - Final, Complete MRSA not isolated Home Meds Active Reported Insulin Lispro Kwikpen U-100 (Insulin Lispro) 100 Unit/Ml Insuln.pen 9 Units SQ BID Pantoprazole Sodium 40 Mg Granpkt.dr 40 Mg PO DAILY Lisinopril 10 Mg Tablet 10 Mg PO DAILY Meloxicam 7.5 Mg Tablet 7.5 Mg PO Soliqua 100 Unit-33 Mcg/ml Pen (Insulin Glargine/Lixisenatide) 100 Unit-33 Mcg/Ml (3 Ml) Insuln.pen 33 Ml SQ HS Glucagon Emergency Kit (Glucagon HCl) 1 Mg Vial 1 Mg IJ PRN PRN Proventil Hfa (Albuterol Sulfate) 90 Mcg Hfa.aer.ad 2 Puff INH PRN Invokamet Xr 150-1,000 mg Tab (Canagliflozin/Metformin HCl) 150 Mg-1,000 Mg Tab.bp.24h 1 Each PO BID Atorvastatin Calcium 10 Mg Tablet 10 Mg PO HS Montelukast Sodium 10 Mg Tablet 10 Mg PO DAILY Aspirin EC (Aspirin) 81 Mg Tablet.dr 81 Mg PO DAILY Vitamin C (Ascorbic Acid) 1,000 Mg Tablet 1,000 Mg PO DAILY Garlic 1,000 Mg Capsule 1,000 Mg PO DAILY Vitamin D3 (Cholecalciferol (Vitamin D3)) 25 Mcg (1000 Unit) Capsule 25 Mcg PO DAILY Assessment/Pt Instructions pcp 1 week Discharge Planning: <30 minutes discharge planning Discharge Instructions Discharge Diet: ADA Diet Discharge Physical Examination Vital Signs Vital Signs Date Time Temp Pulse Resp B/P (MAP) Pulse Ox O2 Delivery O2 Flow Rate FiO2 09/03/23 11:29 36.3 65 17 149/86 (107) 98 Room Air 09/02/23 15:25 2.00 General Appearance: No Apparent Distress, WD/WN Allergies: Coded Allergies: No Known Drug Allergies (Unverified , 08/30/23) Discharge Summary Date of Admission Aug 30, 2023 at 20:18 Date of Discharge Discharge Date: Sep 02, 2023 Discharge Diagnosis (1) DKA (diabetic ketoacidosis) Qualifiers: Qualified Codes: E11.10 - Type 2 diabetes mellitus with ketoacidosis without coma (2) Cholecystitis JAYCOB GOLD DO Sep 03, 2023 11:33
[2023-09-03] MEDS ORDERED: ACHD5005 PO (13:25)
[2023-09-03 14:27] VITALS: BP 149/86
--- OUTSIDE RECORDS SUMMARY | 2023-09-04 10:29 | XMS REPORT | Clinical Summary ---
Author Author [facility] Organization [facility] Address Unknown Phone Unavailable Care Team Providers Care Gaming Department Head Name Role Phone PCP Unavailable Source Comments Some departments are not documenting in the electronic medical record. If you do not see the information that you expected, contact Release of Information in the Health Information Management department at [phone] for further assistance in locating additional records.[facility] Social History Tobacco Use Types Packs/Day Years Used Date Smoking Tobacco: Never Assessed Sex and Gender Information Value Date Recorded Sex Assigned at Not on file Gender Identity Not on file Sexual Orientation Not on file Plan of Treatment Health Maintenance Due Date Last Done Comments COVID-19 VACCINE (#1) 1973 HIV SCREENING 1988 DTAP/TDAP VACCINES (1 - Tdap) 1991 HEPATITIS C SCREENING 1991 PHYSICAL (COMPREHENSIVE) EXAM 1991 COLORECTAL CANCER SCREENING 2018 DEPRESSION SCREENING 11/18/2022 SHINGLES RECOMBINANT VACCINE (1 of 2) 2023 INFLUENZA VACCINE (#1) 2023 PNEUMOCOCCAL VACCINE 0-64 YRS Aged Out No longer eligible based on patient's age to complete this topic
--- OUTSIDE RECORDS SUMMARY | 2023-09-04 10:30 | XMS REPORT ---
Author Author [facility] ter of 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 Apr, confirmed 51477950 -31507 4_Migr ated Problem Mediastinal lymphadenopat hy R59.0 Aug, confirmed 04984682 -36354 4_Migr ated Problem Pure hypercholeste rolemia E78.00 confirmed 099126070 Problem 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.9 confirmed 684756436 Problem Type 2 diabetes mellitus with complication, unspecified whether mcc insulin use E11.8 confirmed 422380176 Problem Type 2 diabetes mellitus, uncontrolled E11.65 Apr, confirmed [id number] 32173 68625 4_Migr ated Problem Angina at rest I20.8 confirmed 493462280 Problem Primary osteoarthriti s of both knees M17.0 confirmed 781908288 Problem Morbid obesity E66.01 confirmed 622057412 Problem Type 2 diabetes mellitus with hyperglycemia E11.65 confirmed 459079 9568 35222 Problem Type 2 diabetes mellitus with unspecified complications E11.8 confirmed 123561038 Problem Gastro-esopha geal reflux disease without esophagitis K21.9 confirmed 903599037 Problem Cardiomyopath y I42.9 18 May, 2016 confirmed 99395251 92092 4_Migr ated Problem Simple chronic bronchitis J41.0 confirmed 19594655 Problem Essential hypertension I10 confirmed 88501758 Problem Chewing tobacco nicotine dependence, uncomplicated F17.220 17 Jul, 2015 confirmed 283741216 08878 4_Migr ated Problem Dyspnea on exertion R06.09 21 Jul, 2016 confirmed 04362432 65214 4_Migr ated Problem Chronic obstructive pulmonary disease, unspecified J44.9 confirmed 30039545 Problem Recurrent major depressive disorder, remission status unspecified F33.9 confirmed 16245581 Problem 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.119 confirmed 821463583 Problem Primary insomnia F51.01 confirmed 9761315 ALLERGIES No Known Allergies ENCOUNTERS from 1975 to 2023-07-19 Encounter Location Date Provider Diagnosis [address] [id number] [address] Jul, DAX Lala Type 2 diabetes mellitus, uncontrolled E11.65 IMMUNIZATIONS Vaccine Route Administration Date Status PRIVATE PPSV23 (PNEUMOVAX) IM Intramuscular Aug 25 Administered PRIVATE FLULAVAL QUAD 0.5ML (6 MO AND UP) 2018 IM Intramuscular Aug 25, 2019 Administered 1st Dose HRSA MODERNA, COVID -19, 0.5mL IM Intramuscular February 24, 2021 Administered PRIVATE FLULAVAL QUAD 0.5ML (6 MO AND UP) 2019 IM Intramuscular Aug 03, 2020 Administered PRIVATE FLU 22-23 (FLULAVAL) AGE 6MO AND UP IM Intramuscular Aug 16, 2022 Administered 2nd Dose HRSA MODERNA, COVID -19, 0.5mL IM Intramuscular March 28, 2021 Administered PRIVATE TDAP (BOOSTRIX) IM Intramuscular June 09, 2019 Administered SOCIAL HISTORY Sex Assigned At : Social History Observation Description Sex Assigned At Unknown Alcohol Screen (Audit-C) Question Answer Notes Did you have a drink containing alcohol in the p ast year? No Points 0 Interpretation Negative Cessation Question Answer Notes Date Tobacco Cessation Provided: 01/08/2020 DAST-10 (2020 Edition) Question Answer Notes 1. Have you used drugs other than those required for medical reasons? No 2. Do you abuse more than one drug at a time? No 3. Are you always able to st op using drugs when you want to? Yes 4. Have you had "blackouts" or "flashbacks" as a result of drug use? No 5. Do you ever feel bad or guilty about your sun g use? No 6. Does your spouse (or pare nts) ever complain about your involvement with drugs? No 7. Have you neglected your f amily because of your use of drugs? No 8. Have you engaged in [employer]rive[employer] al activities in order to obtain drugs? No 9. Have you ever experienced withdrawal symptoms (felt sick) when you stopped taking drugs? No 10. Have you had medical pro blems as a result of your drug use (e.g., memory loss, hepatitis, convulsions, bleeding etc.)? No Results: 0 Interpretation of Score: No problems reported PHQ2 Question Answer Notes In the last 2 weeks, how oft en have you had little interest or pleasure in doing things? Not at all In the last 2 weeks, how oft en have you been feeling down, depressed, or hopeless? Not at all Total PHQ2 Score 0 Tobacco use other than smoking: Question Answer Notes Are you an other tobacco user? Yes P t has been chewing since age 11 REASON FOR REFERRAL No Information VITAL SIGNS Height 71 in Jul, Height-cm 180.34 cm Jul, Weight 229 lbs Jul, Weight-kg 103.87 kg Jul, Temperature 97.5 degrees Fahrenheit Jul, Heart Rate 80 bpm Jul, Oximetry 97 % Jul, BMI 31.94 kg/m2 Jul, Blood pressure systolic 114 mmHg Jul, Blood pressure diastolic 82 mmHg Jul, MEDICATIONS Medication SIG (Take, Route, Frequency, Duration) Notes Start Date End Date Status Garlic 1000 MG 1 capsule Orally Once a day Active Vitamin C 1000 MG 1 tablet Orally Once a day for 30 day(s) Active Cyclobenzaprine HCl 10 MG TAKE ONE (1) TABLET BY MOUTH THREE (3) TIMES DAILY NEEDED for 10 Active Meloxicam 7.5 MG TAKE ONE (1) TABLET BY MOUTH ONCE DAILY for 30 Active GlucaGen HypoKit 1 MG Inject 1mg subcutaneous as needed for severe hypoglycemia. May repeat in 15 minutes if no response. PRN low bs Apr, Active Aspirin 81 MG 1 tablet Orally Once a day for 30 days Feb, Active Invokamet XR 150-1000 MG 2 tablets with the morning meal Orally Once a day for 90 days Active Glucocard Expression Monitor w/Device as directed May, Active Lisinopril 10 MG TAKE ONE (1) TABLET BY MOUTH ONCE DAILY Orally Once a day for 90 days Active Atorvastatin Calcium 10 MG TAKE ONE (1) TABLET BY MOUTH ONCE DAILY for 90 days Active Blood Pressure Cuff - as directed Asset tag # [id number] Active HumaLOG KwikPen 100 UNIT/ML 6 units am and noon, 9 units with supper Subcutaneous three times a day for 90 days May, Active Meclizine HCl 25 MG 1 tablet as needed Orally 3 times a day for 10 days May, Active Soliqua 100-33 UNT-MCG/ML 35 units Subcutaneous daily for 90 days Dose change only. No rx needed. May, Active Vitamin D3 25 MCG (1000 UT) 1 capsule Orally Once a day Active Glucocard Expression Test - TEST FASTING BLOOD SUGAR AND TWO (2) HOURS AFTER A MEAL THREE (3) TIMES WEEKLY. for 58 Active Montelukast Sodium 10 MG TAKE ONE (1) TABLET BY MOUTH ONCE DAILY for 90 Active Carvedilol 3.125 MG 1 tablet Orally Twice a day for 30 days Active Glucocard Vital Test - as directed In Vi tro for 30 days March, Active REASON FOR VISIT DM Provider Visit, ref Dr Lima- elevated gluocose & A1C, Due for / Vision Exam / Dental Exam/ / katie rhoades, Due for / LAB- B12 -orders on chart / If indicated Vitamin D Level / If indicated lab TSH / / katie rhoades, katie rhoades MEDICAL (GENERAL) HISTORY Type Description Date Medical History Osteoarthritis Medical History Type 2 diabetes mellitus Medical History Obesity Medical History Cardiomyopathy Medical History Dyspnea Medical History Lymphadenopathy Surgical History Sinus Surgery Surgical History appendix removed Hospitalization History lymph nodes swollen MENTAL STATUS No Information ASSESSMENTS Encounter Date Diagnosis Assessment Notes Treatment Notes Treatment Clinical Notes Jul, Type 2 diabetes mellitus, uncontrolled (ICD-10 - E11.65) Combine metformin and invokana = INVOKAMET 300/2000mg daily.Rybelsus sample provided (3mg po daily). (Victoza caused GI upset).Continue glyburide 20mg/day.Continue lantus 60 units daily. Jul, Other Diabetic Guidel becki: Your A1C goal should be 7.0 or less unless otherwise discussed. It is recommended that LDL cholesterol be 100 or less to reduce the risk of cardiovascular disease. Blood pressure goal is less than 130/80. A urine microalbumin should be checked at least once per year as a screening of kidney health. If you have chronic kidney disease you should see a presser and blocker knitted goods (kidney specialist) regularly. A foot exam, dilated eye exam, and influenza immunization (flu shot) are recommended annually. Yous should have PPV23 (pneumococcal 23) vaccine before age 65 and PCV13 (pneumonia) vaccine at age 65, with a booster of the PPV23 1 year later unless otherwise specified. Shingrix vaccine (shingles immunization) is recommended to all diabetics whom have had varicella (chicken pox) and are 50 years of age or greater. This is given at baseline and in 2-6 months a booster is given (2 shot series). Guidelines recommend that every diabetic should be on metformin ( if Type II), an PATRICK inhibitor (blood pressure medication to protect kidneys if blood pressure is not at goal) and a statin (for cholesterol) unless contraindicated. If you have coronary disease, you should also be on a daily low dose aspirin unless contraindicated. 150 minutes of moderate intensity exercise per week is recommended. PLAN OF TREATMENT Medication Medication Name Sig Start Date Stop Date Lisinopril 10 MG TAKE ONE (1) TABLET BY MOUTH ONCE DAILY Orally Once a day for 90 days Montelukast Sodium 10 MG TAKE ONE (1) TA BLET BY MOUTH ONCE DAILY for 90 Meloxicam 7.5 MG TAKE ONE (1) TABLET BY MOUTH ONCE DAILY for 30 Treatment Notes Assessment Notes Clinical Notes Type 2 diabetes mellitus, uncontrolled Combine metformin and invokana = INVOKAMET 300/2000mg daily.Rybelsus sample provided (3mg po daily). (Victoza caused GI upset).Continue glyburide 20mg/day.Continue lantus 60 units daily. Next Appt Details 6 Months Reason: Provider Name:JUAN FRANCISCO KELLEY , 2023-08-14 10:40:00 AM, [address] [place], [address], Provider Name:ANATOLY BALLARD FRANCISCO, 2023-10-07 10:45:00 AM, [address] [place], [address], Insurance Providers Payer Name Payer Address Payer Phone Insured Name Patient Relationship to Insured Coverage Start Date Coverage End Date Subscriber Number Group Number MARLON KOEHLER SKYGEN 19 [employer] [address] [facility] [address] [phone] Carlos Sarkar Self - patient is the insured 0 [id number] MARLON [employer] [facility] 19 [address] [address] [place] [address] [phone] Carlos Sarkar Self - patient is the insured 0 [id number] MEDICATIONS ADMINISTERED Medication Instructions Date of Administration Dosag e BICILLIN LA/PENICILLIN G BENZATHINE n, 2018 1.2
--- OUTSIDE RECORDS SUMMARY | 2023-09-04 10:30 | XMS REPORT | Clinical Summary ---
Author Author [facility] Organization [facility] Address Unknown Phone Unavailable Care Team Providers Care Chemical Waste Management Technician Name Role Phone Skip Lima MD PCP [phone] Allergies No known active allergies Medications Medication Sig Dispensed Refills Start Date End Date Status ascorbic acid, vitamin C, (VITAMIN C) 1000 MG tablet Take 1,000 mg by mouth daily. 0 Active garlic 1,000 mg cap Take by mouth. 0 A ctive glipiZIDE (GLUCOTROL) 5 MG tablet Take 5 mg by mouth 2 (two) times a day before breakfast and dinner. 0 Active ibuprofen (ADVIL,MOTRIN) 800 MG tablet Take 800 mg by mouth every 6 (six) hours as needed for pain. 0 Active insulin glargine (LANTUS) 100 unit/mL injection Inject under the skin nightly. 0 Active metformin (GLUCOPHAGE) 1000 mg tablet Take 1,000 mg by mouth 2 (two) times a day with meals. 0 Active cholecalciferol, vitamin D3, 1,000 unit tablet Take 1,000 Units by mouth daily. 0 Active cetirizine (ZYRTEC) 10 MG tablet 0 08/17/2016 Active montelukast (SINGULAIR) 10 mg tablet 0 10/16/2016 Active lisinopril (PRINIVIL,ZESTRIL) 10 MG tablet 0 10/10/2016 Active fluticasone-vilantero l (BREO ELLIPTA) 100-25 mcg/actuation INHALERIndications:Co ugh,Dyspnea on exertion Inhale 1 puff daily. 30 each 5 10/29/2016 Active PROAIR HFA 90 mcg/actuation HFA inhalerIndications:Mi ld intermittent asthma without complication Inhale 2 puffs every 4 (four) hours as needed for wheezing. 1 Inhaler 5 10/29/2016 Active carvedilol (COREG) 12.5 MG tablet 0 11/01/2016 Active fluticasone (FLONASE) 50 mcg/actuation nasal spray Use 1 spray in each nostril daily. 1 Bottle 3 03/08/2017 Active fluticasone-vilantero l (BREO ELLIPTA) 100-25 mcg/actuation INHALERIndications:ma intenance therapy for asthma Inhale 1 puff daily. 6 each 0 04/09/2017 Active albuterol sulfate (PROAIR RESPICLICK) 90 mcg/actuation AePBIndications:Mild intermittent asthma without complication Inhale 2 puffs every 4 (four) hours. 1 each 0 04/09/2017 Active glyBURIDE (DIABETA) 5 MG tablet 0 04/29/2017 Active cyanocobalamin, vitamin B-12, (VITAMIN B-12) 2,500 mcg Subl Dissolve under the tongue. 0 Active mupirocin (BACTROBAN) 2 % ointment Mix with sinus rinses as instructed. 330 g 0 05/17/2017 Active gentamicin (GARAMYCIN) 40 mg/mL injection Inhale 0.25 mL (10 mg total) every 12 (twelve) hours. Mix 1 vial in a qt of water with 4 neilmed salt packets 1 quart lasts 48 hours 2 mL 2 05/29/2017 Active Active Problems Problem Noted Date Diagnosed Date Chronic maxillary sinusitis 02/04/2017 Postnasal drip 10/29/2016 Mild intermittent asthma without complication Subacute maxillary sinusitis 10/29/2016 Mediastinal lymphadenopathy 08/27/2016 Allergic rhinitis 08/27/2016 Cough 08/08/2016 Dyspnea on exertion 08/08/2016 Joint swelling 08/08/2016 Skin rash 08/08/2016 Cardiomyopathy 08/08/2016 Immunizations Name Administration Dates Next Due Influenza QIV (IM) 08/27/2016 Family History Medical History Relation Name Comments Diabetes Father Heart failure Father Hypertension Father Stroke Father Cancer Mother Diabetes Mother Hypertension Mother Relation Name Status Comments Father Alive Mother Alive Social History Tobacco Use Types Packs/Day Years Used Date Smoking Tobacco: Never Smokeless Tobacco: Current Chew Alcohol Use Standard Drinks/Week Comments No 0 (1 standard drink = 0.6 oz pur e alcohol) rarely Sex and Gender Information Value Date Recorded Sex Assigned at Not on file Gender Identity Not on file Sexual Orientation Not on file Last Filed Vital Signs Vital Sign Reading Time Taken Comments Blood Pressure 122/71 05/17/2017 2:39 PM CDT Pulse 79 05/17/2017 2:39 PM CDT Temperature 36.7 C (98 F) 02/04/2017 12:21 PM CDT Respiratory Rate 18 04/09/2017 11:10 AM CDT Oxygen Saturation 98% 04/09/2017 11:10 AM CDT Inhaled Oxygen Concentration - - Weight 114.8 kg (253 lb) 05/17/2017 2:39 PM CDT Height 177.8 cm (5' 10") 05/17/2017 2:39 PM CDT Body Mass Index 36.3 05/17/2017 2:39 PM CDT Plan of Treatment Health Maintenance Due Date Last Done Comments Td/Tdap# 1975 Zoster Vaccine# (1 of 2) 2023 Influenza Vaccine (#1) 2023 08/27/2016 Pneumococcal Vaccine: Pediat rics (0 to 5 Years) and At-Risk Patients (6 to 64 Years) Aged Out No longer eligi ble based on patient's age to complete this topic Advance Directives For more information, please contact: [phone] Latest Code Status on File Code Status Date Activated Date Inactivated Comments Full Code 02/04/2017 10:05 AM 02/04/2017 8:08 PM Care Teams Chemical Waste Management Technician Relationship Specialty Start Date End Date Skip Lima MD [address] [place] [id number] PCP - General Family Medicine 07/18/16
--- OUTSIDE RECORDS SUMMARY | 2023-09-04 10:30 | XMS REPORT ---
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 Apr, confirmed 06310533 -32774 4_Migr ated Problem Mediastinal lymphadenopat hy R59.0 Aug, confirmed 55704810 -87334 4_Migr ated Problem Pure hypercholeste rolemia E78.00 confirmed 253015731 Problem 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.9 confirmed 932110958 Problem Type 2 diabetes mellitus with complication, unspecified whether mcfp insulin use E11.8 confirmed 665889387 Problem Type 2 diabetes mellitus, uncontrolled E11.65 Apr, confirmed 5957629901 61664 76954 4_Migr ated Problem Angina at rest I20.8 confirmed 034056441 Problem Primary osteoarthriti s of both knees M17.0 confirmed 418136243 Problem Morbid obesity E66.01 confirmed 584824565 Problem Type 2 diabetes mellitus with hyperglycemia E11.65 confirmed 830015 6409 08674 Problem Type 2 diabetes mellitus with unspecified complications E11.8 confirmed 158437606 Problem Gastro-esopha geal reflux disease without esophagitis K21.9 confirmed 586525843 Problem Cardiomyopath y I42.9 18 May, 2016 confirmed 82410467 34549 4_Migr ated Problem Simple chronic bronchitis J41.0 confirmed 95019719 Problem Essential hypertension I10 confirmed 60482577 Problem Chewing tobacco nicotine dependence, uncomplicated F17.220 17 Jul, 2015 confirmed 396842834 75050 4_Migr ated Problem Dyspnea on exertion R06.09 21 Jul, 2016 confirmed 74695774 52288 4_Migr ated Problem Chronic obstructive pulmonary disease, unspecified J44.9 confirmed 48320737 Problem Recurrent major depressive disorder, remission status unspecified F33.9 confirmed 64996105 Problem 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 [id number] [address] Jul, DAX Lala IMMUNIZATIONS Vaccine Route Administration Date Status PRIVATE PPSV23 (PNEUMOVAX) IM Intramuscular Aug 25 Administered PRIVATE TDAP (BOOSTRIX) IM Intramuscular June 09, 2019 Administered PRIVATE FLULAVAL QUAD 0.5ML (6 MO AND UP) 2018 IM Intramuscular Aug 25, 2019 Administered PRIVATE FLULAVAL QUAD 0.5ML (6 MO AND UP) 2019 IM Intramuscular Aug 03, 2020 Administered 1st Dose HRSA MODERNA, COVID -19, 0.5mL IM Intramuscular February 24, 2021 Administered PRIVATE FLU 22-23 (FLULAVAL) AGE 6MO AND UP IM Intramuscular Aug 16, 2022 Administered PRIVATE FLU 23-24 (FLULAVAL) 6MO & UP IM Intramuscular Aug 16, 2023 Administered 2nd Dose HRSA MODERNA, COVID -19, 0.5mL IM Intramuscular March 28, 2021 Administered SOCIAL HISTORY Sex Assigned At : [...] drugs? No 8. Have you engaged in illeg al activities in order to obtain drugs? [...] age 11 REASON FOR REFERRAL No Information MEDICATIONS Medication SIG (Take, Route, Frequency, Duration) Notes Start Date End Date Status Aspirin 81 MG 1 tablet Orally Once a day for 30 days Feb, Active Lisinopril 10 MG TAKE ONE (1) TABLET BY MOUTH ONCE DAILY Orally Once a day for 90 days Active Blood Pressure Cuff - as directed Asset tag # [id number] Active Soliqua 100-33 UNT-MCG/ML 35 units Subcutaneous daily for 90 days Dose change only. No rx needed. May, Active Invokamet XR 150-1000 MG 2 tablets with the morning meal Orally Once a day for 90 days Active Meloxicam 7.5 MG TAKE ONE (1) TABLET BY MOUTH ONCE DAILY for 30 Active HumaLOG KwikPen 100 UNIT/ML 11 units Subcutaneous twice a day with meals for 90 days Jul, Active Montelukast Sodium 10 MG TAKE ONE (1) TABLET BY MOUTH ONCE DAILY for 90 Active Carvedilol 3.125 MG 1 tablet Orally Twice a day for 30 days Active Cyclobenzaprine HCl 10 MG TAKE ONE (1) TABLET BY MOUTH THREE (3) TIMES DAILY NEEDED for 10 Active Glucocard Expression Monitor w/Device as directed May, Active Glucocard Expression Test - TEST FASTING BLOOD SUGAR AND TWO (2) HOURS AFTER A MEAL THREE (3) TIMES WEEKLY. for 58 Active GlucaGen HypoKit 1 MG Inject 1mg subcutaneous as needed for severe hypoglycemia. May repeat in 15 minutes if no response. PRN low bs Apr, Active Glucocard Vital Test - as directed In Vi tro for 30 days March, Active Garlic 1000 MG 1 capsule Orally Once a day Active Vitamin D3 25 MCG (1000 UT) 1 capsule Orally Once a day Active Meclizine HCl 25 MG 1 tablet as needed Orally 3 times a day for 10 days May, Active Vitamin C 1000 MG 1 tablet Orally Once a day for 30 day(s) Active Atorvastatin Calcium 10 MG TAKE ONE (1) TABLET BY MOUTH ONCE DAILY for 90 days Active REASON FOR VISIT ABBE PSOT/MELISSA MEDICAL (GENERAL) HISTORY Type Description Date Medical History Osteoarthritis Medical History Type 2 diabetes mellitus Medical History Obesity Medical History Cardiomyopathy Medical History Dyspnea Medical History Lymphadenopathy Surgical History Sinus Surgery Surgical History appendix removed Surgical History Right knee arthroscopy 07/2023 Hospitalization History lymph nodes swollen MENTAL STATUS No Information PLAN OF TREATMENT Medication Medication Name Sig Start Date Stop Date HumaLOG KwikPen 100 UNIT/ML 11 units Sub cutaneous twice a day with meals for 90 days Jul, Next Appt Details Provider Name:ANATOLY SINGH, 2023-10-07 10:45:00 AM, [address] [place], [address], Provider Name:JUAN FRANCISCO KELLEY , 2023-11-13 10:20:00 AM, [address] [place], [address], Insurance Providers Payer Name Payer Address Payer Phone Insured Name Patient Relationship to Insured Coverage Start Date Coverage End Date Subscriber Number Group Number MARLON RODO SKYGEN 19 [employer] [facility] [address] [place] [facility] [address] [phone] Carlos Sarkar Self - patient is the insured 0 [id number] MARLON [employer] [facility] 19 [address] [address] [facility] [address] Carlos Sarkar Self - patient is the insured 0 [id number] MEDICATIONS ADMINISTERED Medication Instructions Date of Administration Dosag e BICILLIN LA/PENICILLIN G BENZATHINE n, 2018 1.2
--- OUTSIDE RECORDS SUMMARY | 2023-09-04 10:30 | XMS REPORT ---
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 Apr, confirmed 46796014 -03306 4_Migr ated Problem Mediastinal lymphadenopat hy R59.0 Aug, confirmed 90575305 -68239 4_Migr ated Problem Pure hypercholeste rolemia E78.00 confirmed 315103706 Problem 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.9 confirmed 128597064 Problem Type 2 diabetes mellitus with complication, unspecified whether intermediate manager insulin use E11.8 confirmed 731118438 Problem Type 2 diabetes mellitus, uncontrolled E11.65 11 Apr, 2016 confirmed 3110817825 98895 -83443 4_Migr ated Problem Angina at rest I20.8 confirmed 681531423 Problem Primary osteoarthriti s of both knees M17.0 confirmed 159314759 Problem Morbid obesity E66.01 confirmed 261517441 Problem Type 2 diabetes mellitus with hyperglycemia E11.65 confirmed 642111 2216 70559 Problem Type 2 diabetes mellitus with unspecified complications E11.8 confirmed 459790477 Problem Gastro-esopha geal reflux disease without esophagitis K21.9 confirmed 794267503 Problem Cardiomyopath y I42.9 18 May, 2016 confirmed 51901029 41691 4_Migr ated Problem Simple chronic bronchitis J41.0 confirmed 15216909 Problem Essential hypertension I10 confirmed 06419963 Problem Chewing tobacco nicotine dependence, uncomplicated F17.220 17 Jul, 2015 confirmed 971306435 50401 4_Migr ated Problem Dyspnea on exertion R06.09 21 Jul, 2016 confirmed 29024982 84535 4_Migr ated Problem Chronic obstructive pulmonary disease, unspecified J44.9 confirmed 70495348 Problem Recurrent major depressive disorder, remission status unspecified F33.9 confirmed 50754313 Problem 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 confirmed 036776988 Problem Primary insomnia F51.01 confirmed 7776424 ALLERGIES No Known Allergies ENCOUNTERS from 1975 to 2023-07-17 Encounter Location Date Provider Diagnosis [address] [id number], [place] [address] 14 Jul, 2021 ANATOLY REECE IMMUNIZATIONS Vaccine Route Administration Date Status PRIVATE PPSV23 (PNEUMOVAX) IM Intramuscular Aug 25 Administered PRIVATE TDAP (BOOSTRIX) IM Intramuscular June 09, 2019 Administered PRIVATE FLULAVAL QUAD 0.5ML (6 MO AND UP) 2018 IM Intramuscular Aug 25, 2019 Administered PRIVATE FLU 22-23 (FLULAVAL) AGE 6MO AND UP IM Intramuscular Aug 16, 2022 Administered 2nd Dose HRSA MODERNA, COVID -19, 0.5mL IM Intramuscular March 28, 2021 Administered 1st Dose HRSA MODERNA, COVID -19, 0.5mL IM Intramuscular February 24, 2021 Administered PRIVATE FLULAVAL QUAD 0.5ML (6 MO AND UP) 2019 IM Intramuscular Aug 03, 2020 Administered SOCIAL HISTORY Sex Assigned At : [...] drugs? No 8. Have you engaged in [employer] System[employer] al activities in order to obtain drugs? [...] Cuff - as directed Asset tag # [id number] Active HumaLOG KwikPen 100 UNIT/ML 6 units [...] 30 days March, Active REASON FOR VISIT Prior Authorization Request MEDICAL (GENERAL) HISTORY Type Description Date Medical [...] TABLET BY MOUTH ONCE DAILY for 30 Next Appt Details Provider Name:JUAN FRANCISCO KELLEY , 2023-08-14 10:40:00 AM, [address] [place], [address], Provider Name:ANATOLY BALLARD , 2023-10-07 10:45:00 AM, [address] [place], [address], Insurance Providers Payer Name Payer Address Payer Phone Insured Name Patient Relationship to Insured Coverage Start Date Coverage End Date Subscriber Number Group Number MARLON RDOO SKYGEN 19 [employer] [facility] [address] [facility] [address] Sarkar,Carlos y E Self - patient is the insured 0 [id number] [employer] [facility] 19 [address] [address] [facility] [address] Carlos Sarkar y E Self - patient is the insured 0 [id number] MEDICATIONS ADMINISTERED Medication Instructions Date of Administration Dosag e BICILLIN LA/PENICILLIN G BENZATHINE 19 Ju n, 2018 1.2
--- OUTSIDE RECORDS SUMMARY | 2023-09-04 10:31 | XMS REPORT ---
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 Apr, confirmed 86288592 -41356 4_Migr ated Problem Chewing tobacco nicotine dependence, uncomplicated F17.220 Jul, confirmed 137977915 -95869 4_Migr ated Problem Dyspnea on exertion R06.09 Jul, confirmed 14412992 -60534 4_Migr ated Problem Cardiomyopath y I42.9 May, confirmed 95149297 -27821 4_Migr ated Problem Pure hypercholeste rolemia E78.00 confirmed 922011788 Problem 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.9 confirmed 550723403 Problem Essential hypertension I10 confirmed 22626558 Problem Gastro-esopha geal reflux disease without esophagitis K21.9 confirmed 731631364 Problem Primary osteoarthriti s of both knees M17.0 confirmed 869816664 Problem 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 confirmed 350642822 Problem Type 2 diabetes mellitus with complication, unspecified whether usp insulin use E11.8 confirmed 359475218 Problem Mediastinal lymphadenopat hy R59.0 10 Aug, 2016 confirmed 58489639 81933 4_Migr ated Problem Primary insomnia F51.01 confirmed 4142200 Problem Angina at rest I20.8 confirmed 839853247 Problem Primary osteoarthriti s of left knee M17.12 15 Jan, 2016 confirmed 846024043 33543 4_Migr ated Problem Morbid obesity E66.01 confirmed 064785095 Problem Type 2 diabetes mellitus with hyperglycemia E11.65 confirmed 973272 7887 42922 Problem Chronic obstructive pulmonary disease, unspecified J44.9 confirmed 42181047 Problem Recurrent major depressive disorder, remission status unspecified F33.9 confirmed 09503422 ALLERGIES No Known Allergies ENCOUNTERS from 1975 to 2023-04-28 Encounter Location Date Provider [facility] [address] [id number] [place] [address] May, ANATOLY REECE IMMUNIZATIONS Vaccine Route Administration Date Status PRIVATE FLU 22-23 (FLULAVAL) AGE 6MO AND UP IM Intramuscular Aug 16, 2022 Administered 2nd Dose HRSA MODERNA, COVID -19, 0.5mL IM Intramuscular March 28, 2021 Administered 1st Dose HRSA MODERNA, COVID -19, 0.5mL IM Intramuscular February 24, 2021 Administered PRIVATE FLULAVAL QUAD 0.5ML (6 MO AND UP) 2019 IM Intramuscular Aug 03, 2020 Administered PRIVATE FLULAVAL QUAD 0.5ML (6 MO AND UP) 2018 IM Intramuscular Aug 25, 2019 Administered PRIVATE TDAP (BOOSTRIX) IM Intramuscular June 09, 2019 Administered PRIVATE PPSV23 (PNEUMOVAX) IM Intramuscular Aug 25 19 Administered SOCIAL HISTORY Sex Assigned At : [...] Once a day for 90 days Active HumaLOG KwikPen 100 UNIT/ML 8 units Subcutaneous three times a day for 30 days Rx not needed. Dose change only Apr, Active Soliqua 100-33 UNT-MCG/ML 33 units Subcutaneous daily for 90 days Jan, Active Invokamet XR 150-1000 MG 2 tablets with the morning meal Orally Once a day for 90 days Active Vitamin D3 25 MCG (1000 UT) 1 capsule Orally Once a day Active Glucocard Expression Monitor w/Device as directed May, Active GlucaGen HypoKit 1 MG Inject 1mg subcutaneous as needed for severe hypoglycemia. May repeat in 15 minutes if no response. PRN low bs Apr, Active Glucocard Expression Test - TEST FASTING BLOOD SUGAR AND TWO (2) HOURS AFTER A MEAL THREE (3) TIMES WEEKLY. for 58 Active Montelukast Sodium 10 MG TAKE ONE (1) TABLET BY MOUTH ONCE DAILY for 90 Active Carvedilol 3.125 MG 1 tablet Orally Twice a day for 30 days Active Garlic 1000 MG 1 capsule Orally Once a day Active Meloxicam 7.5 MG TAKE ONE (1) TABLET BY MOUTH ONCE DAILY for 30 Active Cyclobenzaprine HCl 10 MG TAKE ONE (1) TABLET BY MOUTH THREE (3) TIMES DAILY NEEDED for 10 Active Blood Pressure Cuff - as directed Asset tag # [id number] Active Glucocard Vital Test - as directed In Vi tro for 30 days March, Active Vitamin C 1000 MG 1 tablet Orally Once a day for 30 day(s) Active Atorvastatin Calcium 10 MG TAKE ONE (1) TABLET BY MOUTH ONCE DAILY for 90 days Active REASON FOR VISIT PA for invokana MEDICAL (GENERAL) HISTORY Type Description Date Medical History Osteoarthritis Medical History Type 2 diabetes mellitus Medical History Obesity Medical History Cardiomyopathy Medical History Dyspnea Medical History Lymphadenopathy Surgical History Sinus Surgery Surgical History appendix removed Hospitalization History lymph nodes swollen MENTAL STATUS No Information PLAN OF TREATMENT Next Appt Details Provider Name:ANATOLY SINGH, 2023-06-06 08:45:00 AM, [address] [place], [address], Provider Name:JUAN FRANCISCO KELLEY , 2023-06-12 10:40:00 AM, [address] [place], [address], Insurance Providers Payer Name Payer Address Payer Phone Insured Name Patient Relationship to Insured Coverage Start Date Coverage End Date Subscriber Number Group Number MARLON SCIPABLITO SKYGEN 19 [employer] [address] [facility][note 2] [address] Carlos Sarkar Self - patient is the insured 0 [id number] MARLON [employer] 19 [address] [address] [facility] [address] Carlos Sarkar Self - patient is the insured 0 [id number] MEDICATIONS ADMINISTERED Medication Instructions Date of Administration Dosag e BICILLIN LA/PENICILLIN G BENZATHINE 2018 1.2
--- OUTSIDE RECORDS SUMMARY | 2023-09-04 10:31 | XMS REPORT ---
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 Apr, confirmed -17750 4_Migr ated Problem Chewing tobacco nicotine dependence, uncomplicated F17.220 17 Jul, 2015 confirmed 384314941 -76571 4_Migr ated Problem Dyspnea on exertion R06.09 Jul, confirmed -49401 4_Migr ated Problem Cardiomyopath y I42.9 May, confirmed 64682579 -99753 4_Migr ated Problem Pure hypercholeste rolemia E78.00 confirmed 940597300 Problem 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.9 confirmed 176688915 Problem Essential hypertension I10 confirmed 11775858 Problem Gastro-esopha geal reflux disease without esophagitis K21.9 confirmed 508701916 Problem Primary osteoarthriti s of both knees M17.0 confirmed 706942807 Problem 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 confirmed 936418021 Problem Type 2 diabetes mellitus with complication, unspecified whether oysterman insulin use E11.8 confirmed Problem Mediastinal lymphadenopat hy R59.0 10 Aug, 2016 confirmed -67166 4_Migr ated Problem Primary insomnia F51.01 confirmed 0325592 Problem Angina at rest I20.8 confirmed 191786432 Problem Primary osteoarthriti s of left knee M17.12 15 Jan, 2016 confirmed 282988779 -77354 4_Migr ated Problem Morbid obesity E66.01 confirmed 372166082 Problem Type 2 diabetes mellitus with hyperglycemia E11.65 confirmed 733170 1821 18354 Problem Chronic obstructive pulmonary disease, unspecified J44.9 confirmed Problem Recurrent major depressive disorder, remission status unspecified F33.9 confirmed 04840286 ALLERGIES No Known Allergies ENCOUNTERS from 1975 to 2023-05-12 Encounter Location Date Provider Diagnosis [address] [id number] [place] [address] May, DAX Lala IMMUNIZATIONS Vaccine Route Administration Date [...] Duration) Notes Start Date End Date Status Invokamet XR 150-1000 MG 2 tablets with the morning meal Orally Once a day for 90 days Active Soliqua 100-33 UNT-MCG/ML 33 units Subcutaneous daily for 90 days Jan, Active Lisinopril 10 MG TAKE ONE (1) TABLET BY MOUTH ONCE DAILY Orally Once a day for 90 days Active Montelukast Sodium 10 MG TAKE ONE (1) TABLET BY MOUTH ONCE DAILY for 90 Active HumaLOG KwikPen 100 UNIT/ML 8 units Subcutaneous three times a day for 30 days Rx not needed. Dose change only Apr, Active Vitamin D3 25 MCG (1000 UT) 1 capsule Orally Once a day Active Glucocard Expression Monitor w/Device as directed May, Active GlucaGen HypoKit 1 MG Inject 1mg subcutaneous as needed for severe hypoglycemia. May repeat in 15 minutes if no response. PRN low bs Apr, Active Aspirin 81 MG 1 tablet Orally Once a day for 30 days Feb, Active Meloxicam 7.5 MG TAKE ONE (1) TABLET BY MOUTH ONCE DAILY for 30 Active Blood Pressure Cuff - as directed Asset tag # [id number] Active Glucocard Vital Test - as directed In Vi tro for 30 days March, Active Vitamin C 1000 MG 1 tablet Orally Once a day for 30 day(s) Active Carvedilol 3.125 MG 1 tablet Orally Twice a day for 30 days Active Garlic 1000 MG 1 capsule Orally Once a day Active Atorvastatin Calcium 10 MG TAKE ONE (1) TABLET BY MOUTH ONCE DAILY for 90 days Active Glucocard Expression Test - TEST FASTING BLOOD SUGAR AND TWO (2) HOURS AFTER A MEAL THREE (3) TIMES WEEKLY. for 58 Active Cyclobenzaprine HCl 10 MG TAKE ONE (1) TABLET BY MOUTH THREE (3) TIMES DAILY NEEDED for 10 Active REASON FOR VISIT DM Program Intake, Diabetes Program Intake Completed: 06-05-21 - Via phone., Kasi RT(R) MEDICAL (GENERAL) HISTORY Type Description Date Medical History Osteoarthritis Medical History Type 2 diabetes mellitus Medical History Obesity Medical History Cardiomyopathy Medical History Dyspnea Medical History Lymphadenopathy Surgical History Sinus Surgery Surgical History appendix removed Hospitalization History lymph nodes swollen MENTAL STATUS No Information PLAN OF TREATMENT Next Appt Details With appropriate referral as scheduled 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 Operator Provider Name:ANATOLY SINGH, 2023-06-06 08:45:00 AM, [address] [place] [address], [address], Provider Name:JUAN FRANCISCO KELLEY , 2023-06-12 10:40:00 AM, [address] [place] [address], [address], Follow Up:With appropriate referral as scheduledDietician Insurance Providers Payer Name Payer Address Payer Phone Insured Name Patient Relationship to Insured Coverage Start Date Coverage End Date Subscriber Number Group Number MARLON [employer] 19 [address] [address] [facility] [address] Carlos Sarkar Self - patient is the insured 0 [id number] [facility]ON [facility] [employer] [address] [facility] [address] Carlos Sarkar Self - patient is the insured 0 [id number] MEDICATIONS ADMINISTERED Medication Instructions Date of Administration Dosag e BICILLIN LA/PENICILLIN G BENZATHINE n2018 1.2
--- OUTSIDE RECORDS SUMMARY | 2023-09-04 10:31 | XMS REPORT ---
Author Author [facility] ter of [facility] ter of [facility] Address Unknown Phone Unavailable Care Team Providers Care Screen Printing Paster Name Role Phone ANATOLY REECE Unavailable PROBLEMS Type Condition ICD9-CM Code LBR77-OS Code Onset Dates Condition Status W/U Status Risk SNOMED Code Notes Problem Primary osteoarthriti s of right knee M17.11 Jan, confirmed 515705624 -68066 4_Migr ated Problem Primary osteoarthriti s of left knee M17.12 Jan, confirmed 028301919 -31613 4_Migr ated Problem Chewing tobacco nicotine dependence, uncomplicated F17.220 Jul, confirmed 875570772 -32463 4_Migr ated Problem Type 2 diabetes mellitus, uncontrolled E11.65 Apr, confirmed 8294308101 74587 -65784 4_Migr ated Problem Dyspnea on exertion R06.09 Jul, confirmed 94985020 -78682 4_Migr ated Problem Cardiomyopath y I42.9 May, confirmed 97026157 -39421 4_Migr ated Problem Pure hypercholeste rolemia E78.00 confirmed 954225786 Problem 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.9 confirmed 587391750 Problem Essential hypertension I10 confirmed 05032112 Problem Gastro-esopha geal reflux disease without esophagitis K21.9 confirmed 243787517 Problem Primary osteoarthriti s of both knees M17.0 confirmed 679274584 Problem 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 confirmed 046590925 Problem Type 2 diabetes mellitus with complication, unspecified whether nursing home insulin use E11.8 confirmed 821034568 Problem 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 11 Apr, 2016 confirmed 05213260 -27356 4_Migr ated Problem Primary insomnia F51.01 confirmed 1066834 Problem Angina at rest I20.8 confirmed 624669332 Problem Mediastinal lymphadenopat hy R59.0 10 Aug, 2016 confirmed 17597033 -74258 4_Migr ated Problem Morbid obesity E66.01 confirmed 759198249 Problem Type 2 diabetes mellitus with hyperglycemia E11.65 confirmed 770709 6218 33493 Problem Chronic obstructive pulmonary disease, unspecified J44.9 confirmed 44785519 Problem Recurrent major depressive disorder, remission status unspecified F33.9 confirmed 08353098 ALLERGIES No Known Allergies ENCOUNTERS from 1975 to 2023-05-09 Encounter Location Date [facility] [address] [id number] [place] [address] May, ANATOLY REECE Pure hypercholesterolemia E78.00 ; Type 2 diabetes mellitus with complication, unspecified whether renewal specialist insulin use E11.8 ; 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.9 ; Cardiomyopathy I42.9 ; Morbid obesity E66.01 and Essential hypertension I10 IMMUNIZATIONS Vaccine Route Administration Date Status PRIVATE FLULAVAL QUAD 0.5ML (6 MO AND UP) 2019 IM Intramuscular Aug 03, 2020 Administered PRIVATE PPSV23 (PNEUMOVAX) IM Intramuscular Aug 25 Administered PRIVATE TDAP (BOOSTRIX) IM Intramuscular June 09, 2019 Administered PRIVATE FLULAVAL QUAD 0.5ML (6 MO AND UP) 2018 IM Intramuscular Aug 25, 2019 Administered 1st Dose HRSA MODERNA, COVID -19, 0.5mL IM Intramuscular February 24, 2021 Administered 2nd Dose HRSA MODERNA, COVID -19, 0.5mL IM Intramuscular March 28, 2021 Administered PRIVATE FLU 22-23 (FLULAVAL) AGE 6MO AND UP IM Intramuscular Aug 16, 2022 Administered SOCIAL HISTORY Sex Assigned At : [...] No Information VITAL SIGNS Height 71 in May, Height-cm 180.34 cm May, Weight 227 lbs May, Weight-kg 102.97 kg May, BMI 31.66 kg/m2 May, Blood pressure systolic 130 mmHg May, Blood pressure diastolic 80 mmHg May, MEDICATIONS Medication SIG (Take, Route, Frequency, Duration) [...] Cuff - as directed Asset tag # [id number] Active Glucocard Vital Test - as directed [...] NEEDED for 10 Active REASON FOR VISIT CHM- Labs Drawn Today (KEDAR Tello) MEDICAL (GENERAL) HISTORY Type Description Date Medical History Osteoarthritis Medical History Type 2 diabetes mellitus Medical History Obesity Medical History Cardiomyopathy Medical History Dyspnea Medical History Lymphadenopathy Surgical History Sinus Surgery Surgical History appendix removed Hospitalization History lymph nodes swollen MENTAL STATUS No Information ASSESSMENTS Encounter Date Diagnosis Assessment Notes Treatment Notes Treatment Clinical Notes May, Type 2 diabetes chapis itus with complication, unspecified whether nursing home insulin use (ICD-10 - E11.8) May, Pure hypercholestero lemia (ICD-10 - E78.00) May, COPD (chronic obstru ctive pulmonary disease) with chronic bronchitis (ICD-10 - J44.9) May, Morbid obesity (ICD- 10 - E66.01) May, Essential hypertensi on (ICD-10 - I10) May, Cardiomyopathy (ICD- 10 - I42.9) -[id number]_Migrated PLAN OF TREATMENT Next Appt Details 4 Months Reason:fu with labs prior Provider Name:ANATOLY SINGH, 2023-06-06 08:45:00 AM, [address] [place], [address], Provider Name:JUAN FRANCISCO KELLEY , 2023-06-12 10:40:00 AM, [address] [place], [address], Follow Up:4 Monthsfu with labs prior Insurance Providers Payer Name Payer Address Payer Phone Insured Name Patient Relationship to Insured Coverage Start Date Coverage End Date Subscriber Number Group Number MARLON SCION SKYGEN 19 [employer] [address] [facility] [address] [phone] Carlos Sarkar Self - patient is the insured 0 [id number] MARLON [employer] 19 [address] [address] [place] [address] Carlos Sarkar Self - patient is the insured 0 [id number] MEDICATIONS ADMINISTERED Medication Instructions Date of Administration Dosag e BICILLIN LA/PENICILLIN G BENZATHINE Ju n, 2018 1.2
--- OUTSIDE RECORDS SUMMARY | 2023-09-04 10:31 | XMS REPORT ---
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 Apr, confirmed 67137425 -36462 4_Migr ated Problem Chewing tobacco nicotine dependence, uncomplicated F17.220 Jul, confirmed 303412349 -10933 4_Migr ated Problem Dyspnea on exertion R06.09 Jul, confirmed 19298267 -39445 4_Migr ated Problem Cardiomyopath y I42.9 May, confirmed 83956650 -26397 4_Migr ated Problem Pure hypercholeste rolemia E78.00 confirmed 442187350 Problem 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.9 confirmed 031504255 Problem Essential hypertension I10 confirmed 38744356 Problem Gastro-esopha geal reflux disease without esophagitis K21.9 confirmed 121544760 Problem Primary osteoarthriti s of both knees M17.0 confirmed 022240319 Problem 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 confirmed 316449378 Problem Type 2 diabetes mellitus with complication, unspecified whether half-way insulin use E11.8 confirmed 408552091 Problem Mediastinal lymphadenopat hy R59.0 10 Aug, 2016 confirmed 57915968 08187 4_Migr ated Problem Primary insomnia F51.01 confirmed 7282355 Problem Angina at rest I20.8 confirmed 961086930 Problem Primary osteoarthriti s of left knee M17.12 15 Jan, 2016 confirmed 199217395 08716 4_Migr ated Problem Morbid obesity E66.01 confirmed 055502298 Problem Type 2 diabetes mellitus with hyperglycemia E11.65 confirmed 153673 4356 66647 Problem Chronic obstructive pulmonary disease, unspecified J44.9 confirmed 21704515 Problem Recurrent major depressive disorder, remission status unspecified F33.9 confirmed 38073414 ALLERGIES No Known Allergies ENCOUNTERS from 1975 to 2023-03-30 Encounter Location Date Provider Diagnosis [address] [id number] [place] [address] Apr, ANATOLY REECE Type 2 diabetes mellitus with complication, unspecified whether roasterman insulin use E11.8 IMMUNIZATIONS Vaccine Route Administration Date Status PRIVATE TDAP (BOOSTRIX) IM Intramuscular June 09, [...] 0.5mL IM Intramuscular February 24, 2021 Administered SOCIAL HISTORY Sex Assigned At [...] you been feeling down, depressed, or hopeless? Nearly every day Total PHQ2 Score 3 Tobacco use other than smoking: Question Answer Notes Are you an other tobacco user? Yes P t has been chewing since age 11 REASON FOR REFERRAL No Information MEDICATIONS Medication SIG (Take, Route, Frequency, Duration) Notes Start Date End Date Status Cyclobenzaprine HCl 10 MG TAKE ONE (1) TABLET BY MOUTH THREE (3) TIMES DAILY NEEDED for 10 Active HumaLOG KwikPen 100 UNIT/ML 24 units of insulin with each meal. (Patient states he has been taking 22 units with each meal) Subcutaneous three times a day for 30 days Feb, Active Garlic 1000 MG 1 capsule Orally Once a day Active Meloxicam 7.5 MG TAKE ONE (1) TABLET BY MOUTH ONCE DAILY for 30 Active Lisinopril 10 MG TAKE ONE (1) TABLET BY MOUTH ONCE DAILY Orally Once a day for 90 days Active Atorvastatin Calcium 10 MG TAKE ONE (1) TABLET BY MOUTH ONCE DAILY for 90 days Active Vitamin D3 25 MCG (1000 UT) 1 capsule Orally Once a day Active Aspirin 81 MG 1 tablet Orally Once a day for 30 days Feb, Active Glucocard Expression Test - TEST FASTING BLOOD SUGAR AND TWO (2) HOURS AFTER A MEAL THREE (3) TIMES WEEKLY. for 58 Active Montelukast Sodium 10 MG TAKE ONE (1) TABLET BY MOUTH ONCE DAILY for 90 Active Ventolin HFA 108 (90 Base) MCG/ACT 2 puffs as needed Inhalation every 6 hrs for 25 PRn Not-Taking traZODone HCl 50 MG 1 tablet at bedtime as needed Orally Once a day for 30 day(s) Nov, Not-Taking Soliqua 100-33 UNT-MCG/ML 32 units Subcutaneous daily for 90 days states dec 30 units Jan, Active Invokamet XR 150-1000 MG 2 tablets with the morning meal Orally Once a day for 90 days Active GlucaGen HypoKit 1 MG Inject 1mg subcutaneous as needed for severe hypoglycemia. May repeat in 15 minutes if no response. PRN low bs Apr, Active Carvedilol 3.125 MG 1 tablet Orally Twice a day for 30 days Active Glucocard Expression Monitor w/Device as directed May, Active Blood Pressure Cuff - as directed Asset tag # [id number] Active Vitamin C 1000 MG 1 tablet Orally Once a day for 30 day(s) Active REASON FOR VISIT MTM (Medication Therapy Management) MEDICAL (GENERAL) HISTORY Type Description Date Medical History Osteoarthritis Medical History Type 2 diabetes mellitus Medical History Obesity Medical History Cardiomyopathy Medical History Dyspnea Medical History Lymphadenopathy Surgical History Sinus Surgery Surgical History appendix removed Hospitalization History lymph nodes swollen MENTAL STATUS No Information ASSESSMENTS Encounter Date Diagnosis Assessment Notes Treatment Notes Treatment Clinical Notes Apr, Type 2 diabetes mellitus with complication, unspecified whether roasterman insulin use (ICD-10 - E11.8) PLAN OF TREATMENT Medication Medication Name Sig Start Date Stop Date HumaLOG KwikPen 100 UNIT/ML 24 units of insulin with each meal. (Patient states he has been taking 22 units with each meal) Subcutaneous three times a day for 30 days Feb, Next Appt Details Provider Name:JUAN FRANCISCO KELLEY , 2023-04-03 10:00:00 AM, [address] [place] [address], [phone], Provider Name:ANATOLY SINGH, 2023-06-06 08:45:00 AM, [address] [place] [address], [phone], Insurance Providers Payer Name Payer Address Payer Phone Insured Name Patient Relationship to Insured Coverage Start Date Coverage End Date Subscriber Number Group Number MARLON [employer] other things you bake 19 [address] [address] [facility] [address] Carlos Sarkar Self - patient is the insured 0 [id number] [facility] 19 [employer] Better Health [address] [facility] [address] Carlos Sarkar Self - patient is the insured 0 [id number] MEDICATIONS ADMINISTERED Medication Instructions Date of Administration Dosag e BICILLIN LA/PENICILLIN G BENZATHINE 19 Ju n, 2018 1.2
--- OUTSIDE RECORDS SUMMARY | 2023-09-04 10:31 | XMS REPORT ---
Author Author [facility] ter of 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 Apr, confirmed 98667998 32277 4_Migr ated Problem Mediastinal lymphadenopat hy R59.0 Aug, confirmed -39089 4_Migr ated Problem Pure hypercholeste rolemia E78.00 confirmed 435824378 Problem 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.9 confirmed 636994339 Problem Type 2 diabetes mellitus with complication, unspecified whether rice farmer insulin use E11.8 confirmed Problem Type 2 diabetes mellitus, uncontrolled E11.65 11 Apr, 2016 confirmed [id number] 49020 -36797 4_Migr ated Problem Angina at rest I20.8 confirmed 371146609 Problem Primary osteoarthriti s of both knees M17.0 confirmed Problem Morbid obesity E66.01 confirmed 560012232 Problem Type 2 diabetes mellitus with hyperglycemia E11.65 confirmed 508995 6199 45880 Problem Type 2 diabetes mellitus with unspecified complications E11.8 confirmed 234446545 Problem Gastro-esopha geal reflux disease without esophagitis K21.9 confirmed 024675876 Problem Cardiomyopath y I42.9 18 May, 2016 confirmed -05345 4_Migr ated Problem Simple chronic bronchitis J41.0 confirmed 01930142 Problem Essential hypertension I10 confirmed 05470113 Problem Chewing tobacco nicotine dependence, uncomplicated F17.220 17 Jul, 2015 confirmed 473300488 28939 4_Migr ated Problem Dyspnea on exertion R06.09 21 Jul, 2016 confirmed 03255661 89246 4_Migr ated Problem Chronic obstructive pulmonary disease, unspecified J44.9 confirmed Problem Recurrent major depressive disorder, remission status unspecified F33.9 confirmed 13250581 Problem 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 confirmed Problem Primary insomnia F51.01 confirmed [id number] ALLERGIES No Known Allergies ENCOUNTERS from 1975 to 2023-07-07 Encounter Location Date Provider Diagnosis [facility] [address] [id number] [place] [address] Jul, ANATOLY REECE IMMUNIZATIONS Vaccine Route Administration Date [...] a day for 10 days May, Active Aspirin 81 MG 1 tablet Orally Once a day for 30 days Feb, Active Vitamin C 1000 MG 1 tablet Orally Once a day for 30 day(s) Active Meloxicam 7.5 MG TAKE ONE (1) TABLET BY MOUTH ONCE DAILY for 30 Active Glucocard Expression Monitor w/Device as directed May, Active GlucaGen HypoKit 1 MG Inject 1mg subcutaneous as needed for severe hypoglycemia. May repeat in 15 minutes if no response. PRN low bs Apr, Active Montelukast Sodium 10 MG TAKE ONE (1) TABLET BY MOUTH ONCE DAILY for 90 Active Glucocard Expression Test - TEST FASTING BLOOD SUGAR AND TWO (2) HOURS AFTER A MEAL THREE (3) TIMES WEEKLY. for 58 Active Soliqua 100-33 UNT-MCG/ML 35 units Subcutaneous daily for 90 days Dose change only. No rx needed. May, Active Blood Pressure Cuff - as directed Asset tag # [id number] Active Lisinopril 10 MG TAKE ONE (1) TABLET BY MOUTH ONCE DAILY Orally Once a day for 90 days Active Vitamin D3 25 MCG (1000 UT) 1 capsule Orally Once a day Active Cyclobenzaprine HCl 10 MG TAKE ONE (1) TABLET BY MOUTH THREE (3) TIMES DAILY NEEDED for 10 Active Glucocard Vital Test - as directed In Vi tro for 30 days March, Active Invokamet XR 150-1000 MG 2 tablets with the morning meal Orally Once a day for 90 days Active HumaLOG KwikPen 100 UNIT/ML 6 units am and noon, 9 units with supper Subcutaneous three times a day for 90 days May, Active Atorvastatin Calcium 10 MG TAKE ONE (1) TABLET BY MOUTH ONCE DAILY for 90 days Active Carvedilol 3.125 MG 1 tablet Orally Twice a day for 30 days Active REASON FOR VISIT PA for victoza MEDICAL (GENERAL) HISTORY Type Description Date Medical History Osteoarthritis Medical History Type 2 diabetes mellitus Medical History Obesity Medical History Cardiomyopathy Medical History Dyspnea Medical History Lymphadenopathy Surgical History Sinus Surgery Surgical History appendix removed Hospitalization History lymph nodes swollen MENTAL STATUS No Information PLAN OF TREATMENT Medication Medication Name Sig Start Date Stop Date Soliqua 100-33 UNT-MCG/ML 35 units Subcu taneous daily for 90 days May, HumaLOG KwikPen 100 UNIT/ML 6 units am a nd noon, 9 units with supper Subcutaneous three times a day for 90 days May, Next Appt Details Provider Name:JUAN FRANCISCO KELLEY , 2023-08-14 10:40:00 AM, [address] [place], [address], Provider Name:ANATOLY BALLARD , 2023-10-07 10:45:00 AM, [address] [place], [address], Insurance Providers Payer Name Payer Address Payer Phone Insured Name Patient Relationship to Insured Coverage Start Date Coverage End Date Subscriber Number Group Number MARLON [employer] 19 [address] [address] [facility] [phone] Carlos Sarkar Self - patient is the insured 0 [id number] MARLON [facility] 19 [employer] Better Health [address] [facility] [address] Carlos Sarkar Self - patient is the insured 0 [id number] MEDICATIONS ADMINISTERED Medication Instructions Date of Administration Dosag e BICILLIN LA/PENICILLIN G BENZATHINE 19 n, 2018 1.2
--- OUTSIDE RECORDS SUMMARY | 2023-09-04 10:31 | XMS REPORT ---
Author Author [facility] ter of 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 Apr, confirmed 47755359 -11997 4_Migr ated Problem Chewing tobacco nicotine dependence, uncomplicated F17.220 Jul, confirmed 121509816 -03557 4_Migr ated Problem Dyspnea on exertion R06.09 Jul, confirmed 89602794 -10601 4_Migr ated Problem Cardiomyopath y I42.9 May, confirmed 73906416 -89798 4_Migr ated Problem Pure hypercholeste rolemia E78.00 confirmed 052722927 Problem 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.9 confirmed 538375708 Problem Essential hypertension I10 confirmed 93023542 Problem Gastro-esopha geal reflux disease without esophagitis K21.9 confirmed 070054723 Problem Primary osteoarthriti s of both knees M17.0 confirmed 212830168 Problem 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 confirmed 167223120 Problem Type 2 diabetes mellitus with complication, unspecified whether senior care insulin use E11.8 confirmed 002318752 Problem Mediastinal lymphadenopat hy R59.0 10 Aug, 2016 confirmed 98132656 30755 4_Migr ated Problem Primary insomnia F51.01 confirmed 9476972 Problem Angina at rest I20.8 confirmed 527504953 Problem Primary osteoarthriti s of left knee M17.12 15 Jan, 2016 confirmed 642263117 86139 4_Migr ated Problem Morbid obesity E66.01 confirmed 924805549 Problem Type 2 diabetes mellitus with hyperglycemia E11.65 confirmed 677654 0390 04127 Problem Chronic obstructive pulmonary disease, unspecified J44.9 confirmed 26237253 Problem Recurrent major depressive disorder, remission status unspecified F33.9 confirmed 51915815 ALLERGIES No Known Allergies ENCOUNTERS from 1975 to 2023-05-06 Encounter Location Date Provider Diagnosis [facility] [address] [id number] [place] [address] May, ANATOLY REECE Type 2 diabetes mellitus with complication, unspecified whether extermination inspector insulin use E11.8 IMMUNIZATIONS Vaccine Route Administration [...] PPSV23 (PNEUMOVAX) IM Intramuscular Aug 25 Administered SOCIAL HISTORY Sex Assigned At : [...] Cuff - as directed Asset tag # [id number] Active Glucocard Vital Test - as directed [...] (3) TIMES DAILY NEEDED for 10 Active PROCEDURES from 1975 to 2023-05-06 Procedure Date Ordered Date Performed Result Body Sit e ROUTINE VENIPUNCTURE 2021-05-29 2021-05-29 N/A REASON FOR VISIT No Information MEDICAL (GENERAL) HISTORY Type Description Date Medical History Osteoarthritis Medical History Type 2 diabetes mellitus Medical History Obesity Medical History Cardiomyopathy Medical History Dyspnea Medical History Lymphadenopathy Surgical History Sinus Surgery Surgical History appendix removed Hospitalization History lymph nodes swollen MENTAL STATUS No Information ASSESSMENTS Encounter Date Diagnosis Assessment Notes Treatment Notes Treatment Clinical Notes May, Type 2 diabetes mellitus with complication, unspecified whether senior care insulin use (ICD-10 - E11.8) PLAN OF TREATMENT Next Appt Details Provider Name:ANATOLY BALLARD , 2023-06-06 08:45:00 AM, [facility] [place], [address], Provider Name:JUAN FRANCISCO KELLEY , 2023-06-12 10:40:00 AM, [address] [place], [address], Insurance Providers Payer Name Payer Address Payer Phone Insured Name Patient Relationship to Insured Coverage Start Date Coverage End Date Subscriber Number Group Number MARLON [employer] 19 [address] [address] [facility] [address] Carlos Sarkar Self - patient is the insured 0 [id number] MARLON [facility] 19 [employer] Better Health [address] [facility] [address] [phone] Carlos Sarkar Self - patient is the insured 0 [id number] MEDICATIONS ADMINISTERED Medication Instructions Date of Administration Dosag e BICILLIN LA/PENICILLIN G BENZATHINE n2018 1.2
--- OUTSIDE RECORDS SUMMARY | 2023-09-04 10:31 | XMS REPORT ---
Author Author [facility] ter of [facility] ter [facility] Address Unknown Phone Unavailable Care Team Providers Care Gimp Tacker Name Role Phone ANATOLY REECE Unavailable PROBLEMS ALLERGIES No Known Allergies ENCOUNTERS from 1975 to 2023-04-26 IMMUNIZATIONS SOCIAL HISTORY No smoking Hx information available REASON FOR REFERRAL No Information VITAL SIGNS MEDICATIONS REASON FOR VISIT MEDICAL (GENERAL) HISTORY MENTAL STATUS ASSESSMENTS PLAN OF TREATMENT Insurance Providers MEDICATIONS ADMINISTERED
--- OUTSIDE RECORDS SUMMARY | 2023-09-04 10:31 | XMS REPORT ---
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 Apr, confirmed 32694270 -32942 4_Migr ated Problem Chewing tobacco nicotine dependence, uncomplicated F17.220 Jul, confirmed 814277257 -58363 4_Migr ated Problem Dyspnea on exertion R06.09 Jul, confirmed 78099110 -28479 4_Migr ated Problem Cardiomyopath y I42.9 May, confirmed 87932735 -99804 4_Migr ated Problem Pure hypercholeste rolemia E78.00 confirmed 818161308 Problem 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.9 confirmed 312378935 Problem Essential hypertension I10 confirmed 33302045 Problem Gastro-esopha geal reflux disease without esophagitis K21.9 confirmed 575040418 Problem Primary osteoarthriti s of both knees M17.0 confirmed 978825326 Problem 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 confirmed 118487539 Problem Type 2 diabetes mellitus with complication, unspecified whether halfway insulin use E11.8 confirmed 753297540 Problem Mediastinal lymphadenopat hy R59.0 10 Aug, 2016 confirmed 30570567 90714 4_Migr ated Problem Primary insomnia F51.01 confirmed 3942039 Problem Angina at rest I20.8 confirmed 802549396 Problem Primary osteoarthriti s of left knee M17.12 15 Jan, 2016 confirmed 411787918 52419 4_Migr ated Problem Morbid obesity E66.01 confirmed 234401786 Problem Type 2 diabetes mellitus with hyperglycemia E11.65 confirmed 124490 2355 42416 Problem Chronic obstructive pulmonary disease, unspecified J44.9 confirmed 41155450 Problem Recurrent major depressive disorder, remission status unspecified F33.9 confirmed 02708783 ALLERGIES No Known Allergies ENCOUNTERS from 1975 to 2023-04-25 Encounter Location Date Provider [facility] [place] [facility] [address] [id number] [place] [address] Apr, ANATOLY MICHAELANI Acute pain of right shoulder M25.511 IMMUNIZATIONS Vaccine Route Administration Date Status PRIVATE [...] Cuff - as directed Asset tag # [id number] Active Glucocard Vital Test - as directed In Vi tro for 30 days March, Active Vitamin C 1000 MG 1 tablet Orally Once a day for 30 day(s) Active Atorvastatin Calcium 10 MG TAKE ONE (1) TABLET BY MOUTH ONCE DAILY for 90 days Active REASON FOR VISIT xray MEDICAL (GENERAL) HISTORY Type Description Date Medical History Osteoarthritis Medical History Type 2 diabetes mellitus Medical History Obesity Medical History Cardiomyopathy Medical History Dyspnea Medical History Lymphadenopathy Surgical History Sinus Surgery Surgical History appendix removed Hospitalization History lymph nodes swollen MENTAL STATUS No Information ASSESSMENTS Encounter Date Diagnosis Assessment Notes Treatment Notes Treatment Clinical Notes Apr, Acute pain of right shoulder (ICD-10 - M25.511) PLAN OF TREATMENT Next Appt Details Provider Name:ANATOLY BALLARD , 2023-06-06 08:45:00 AM, [address] [place] [address], [address], Provider Name:JUAN FRANCISCO KELLEY , 2023-06-12 10:40:00 AM, [address] [place] [address], [phone], Insurance Providers Payer Name Payer Address Payer Phone Insured Name Patient Relationship to Insured Coverage Start Date Coverage End Date Subscriber Number Group Number MARLON [employer]etjuan c [employer] 19 [address] [address] [facility] [address] Carlos Sarkar Self - patient is the insured 0 [id number] MARLON [facility]ER [facility] 19 [employer] Better Health [address] [facility] [address] Carlos Sarkar Self - patient is the insured 0 [id number] MEDICATIONS ADMINISTERED Medication Instructions Date of Administration Dosag e BICILLIN LA/PENICILLIN G BENZATHINE 2018 1.2
--- OUTSIDE RECORDS SUMMARY | 2023-09-04 10:31 | XMS REPORT ---
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 Apr, confirmed 95240078 -24921 4_Migr ated Problem Chewing tobacco nicotine dependence, uncomplicated F17.220 Jul, confirmed 845681576 -49532 4_Migr ated Problem Dyspnea on exertion R06.09 Jul, confirmed 71934581 -12701 4_Migr ated Problem Cardiomyopath y I42.9 May, confirmed 19103348 -57629 4_Migr ated Problem Pure hypercholeste rolemia E78.00 confirmed 484025795 Problem 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.9 confirmed 461470211 Problem Essential hypertension I10 confirmed 92308808 Problem Gastro-esopha geal reflux disease without esophagitis K21.9 confirmed 212355123 Problem Primary osteoarthriti s of both knees M17.0 confirmed 374161342 Problem 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 confirmed 581446293 Problem Type 2 diabetes mellitus with complication, unspecified whether mcfp insulin use E11.8 confirmed 882721004 Problem Mediastinal lymphadenopat hy R59.0 10 Aug, 2016 confirmed 20301932 44454 4_Migr ated Problem Primary insomnia F51.01 confirmed 7539389 Problem Angina at rest I20.8 confirmed 664740094 Problem Primary osteoarthriti s of left knee M17.12 15 Jan, 2016 confirmed 416226980 44376 4_Migr ated Problem Morbid obesity E66.01 confirmed 053917173 Problem Type 2 diabetes mellitus with hyperglycemia E11.65 confirmed 627608 3686 71695 Problem Chronic obstructive pulmonary disease, unspecified J44.9 confirmed 62761729 Problem Recurrent major depressive disorder, remission status unspecified F33.9 confirmed 26073880 ALLERGIES No Known Allergies ENCOUNTERS from 1975 to 2023-05-08 Encounter Location Date Provider Diagnosis [facility] [id number] [place] [address] May, ANATOLY REECE IMMUNIZATIONS Vaccine Route Administration [...] Cuff - as directed Asset tag # [id number] Active Glucocard Vital Test - as directed [...] NEEDED for 10 Active REASON FOR VISIT Returned call-lab results MEDICAL (GENERAL) HISTORY Type Description Date Medical History Osteoarthritis Medical History Type 2 diabetes mellitus Medical History Obesity Medical History Cardiomyopathy Medical History Dyspnea Medical History Lymphadenopathy Surgical History Sinus Surgery Surgical History appendix removed Hospitalization History lymph nodes swollen MENTAL STATUS No Information PLAN OF TREATMENT Next Appt Details Provider Name:ANATOLY SINGH, 2023-06-06 08:45:00 AM, [facility] [place], [address], Provider Name:JUAN FRANCISCO KELLEY , 2023-06-12 10:40:00 AM, [address] [place], [address], Insurance Providers Payer Name Payer Address Payer Phone Insured Name Patient Relationship to Insured Coverage Start Date Coverage End Date Subscriber Number Group Number MARLON KOEHLER SKYGEN 19 [employer] [address] [facility] [address] Carlos Sarkar Self - patient is the insured 0 [id number] MARLON [employer] 19 [address] [address] [facility] [address] [phone] Carlos Sarkar Self - patient is the insured 0 [id number] MEDICATIONS ADMINISTERED Medication Instructions Date of Administration Dosag e BICILLIN LA/PENICILLIN G BENZATHINE 2018 1.2
--- OUTSIDE RECORDS SUMMARY | 2023-09-04 10:31 | XMS REPORT ---
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 Apr, confirmed 08326072 -55219 4_Migr ated Problem Chewing tobacco nicotine dependence, uncomplicated F17.220 Jul, confirmed 568641560 -67392 4_Migr ated Problem Dyspnea on exertion R06.09 Jul, confirmed 26604718 -37955 4_Migr ated Problem Cardiomyopath y I42.9 May, confirmed 68634426 -24916 4_Migr ated Problem Pure hypercholeste rolemia E78.00 confirmed 470218328 Problem 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.9 confirmed 219490831 Problem Essential hypertension I10 confirmed 96956817 Problem Gastro-esopha geal reflux disease without esophagitis K21.9 confirmed 045237922 Problem Primary osteoarthriti s of both knees M17.0 confirmed 864242791 Problem 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 confirmed 855371398 Problem Type 2 diabetes mellitus with complication, unspecified whether pen[facility]iary insulin use E11.8 confirmed 970039886 Problem Mediastinal lymphadenopat hy R59.0 10 Aug, 2016 confirmed 10903325 30266 4_Migr ated Problem Primary insomnia F51.01 confirmed 0106427 Problem Angina at rest I20.8 confirmed 851124846 Problem Primary osteoarthriti s of left knee M17.12 15 Jan, 2016 confirmed 362045116 22777 4_Migr ated Problem Morbid obesity E66.01 confirmed 031363450 Problem Type 2 diabetes mellitus with hyperglycemia E11.65 confirmed 247935 4416 86598 Problem Chronic obstructive pulmonary disease, unspecified J44.9 confirmed 69295692 Problem Recurrent major depressive disorder, remission status unspecified F33.9 confirmed 00693817 ALLERGIES No Known Allergies ENCOUNTERS from 1975 to 2023-04-12 Encounter Location Date Provider Diagnosis [facility] [id number] [place] [address] Apr, ANATOLY REECE IMMUNIZATIONS Vaccine Route Administration Date [...] Duration) Notes Start Date End Date Status Vitamin D3 25 MCG (1000 UT) 1 capsule Orally Once a day Active Garlic 1000 MG 1 capsule Orally Once a day Active traZODone HCl 50 MG 1 tablet at bedtime as needed Orally Once a day for 30 day(s) Nov, Not-Taking Invokamet XR 150-1000 MG 2 tablets with the morning meal Orally Once a day for 90 days Active GlucaGen HypoKit 1 MG Inject 1mg subcutaneous as needed for severe hypoglycemia. May repeat in 15 minutes if no response. PRN low bs Apr, Active Blood Pressure Cuff - as directed Asset tag # [id number] Active Glucocard Expression Monitor w/Device as directed May, Active Atorvastatin Calcium 10 MG TAKE ONE (1) TABLET BY MOUTH ONCE DAILY for 90 days Active Meloxicam 7.5 MG TAKE ONE (1) TABLET BY MOUTH ONCE DAILY for 30 Active Lisinopril 10 MG TAKE ONE (1) TABLET BY MOUTH ONCE DAILY Orally Once a day for 90 days Active Glucocard Expression Test - TEST FASTING BLOOD SUGAR AND TWO (2) HOURS AFTER A MEAL THREE (3) TIMES WEEKLY. for 58 Active Glucocard Vital Test - as directed In Vitro for 30 days March, Active Montelukast Sodium 10 MG TAKE ONE (1) TABLET BY MOUTH ONCE DAILY for 90 Active Cyclobenzaprine HCl 10 MG TAKE ONE (1) TABLET BY MOUTH THREE (3) TIMES DAILY NEEDED for 10 Active Soliqua 100-33 UNT-MCG/ML 33 units Subcutaneous daily for 90 days Jan, Active HumaLOG KwikPen 100 UNIT/ML 7 units with each meal Subcutaneous three times a day for 30 days Dose change only. Rx not needed. March, Active Ventolin HFA 108 (90 Base) MCG/ACT 2 puffs as needed Inhalation every 6 hrs for 25 PRn Not-Taking Aspirin 81 MG 1 tablet Orally Once a day for 30 days Feb, Active Carvedilol 3.125 MG 1 tablet Orally Twice a day for 30 days Active Vitamin C 1000 MG 1 tablet Orally Once a day for 30 day(s) Active REASON FOR VISIT Medication question MEDICAL (GENERAL) HISTORY Type Description Date Medical History Osteoarthritis Medical History Type 2 diabetes mellitus Medical History Obesity Medical History Cardiomyopathy Medical History Dyspnea Medical History Lymphadenopathy Surgical History Sinus Surgery Surgical History appendix removed Hospitalization History lymph nodes swollen MENTAL STATUS No Information PLAN OF TREATMENT Medication Medication Name Sig Start Date Stop Date HumaLOG KwikPen 100 UNIT/ML 7 units with each meal Subcutaneous three times a day for 30 days March, Glucocard Vital Test - as directed In Vitro for 30 day s March, Next Appt Details Provider Name:JUAN FRANCISCO KELLEY , 2023-04-17 10:00:00 AM, [address] [place] [address], [phone], Provider Name:ANATOLY SINGH, 2023-04-25 11:00:00 AM, [address] [place] [address], [phone], Provider Name:ANATOLY SINGH, 2023-06-06 08:45:00 AM, [address] [place] [address], [phone], Insurance Providers Payer Name Payer Address Payer Phone Insured Name Patient Relationship to Insured Coverage Start Date Coverage End Date Subscriber Number Group Number MARLON [employer] SKYGEN 19 [employer] [address] [facility] [address] Carlos Sarkar Self - patient is the insured 0 [id number] [employer] 19 [address] [address] [facility] [address] Carlos Sarkar Self - patient is the insured 0 [id number] MEDICATIONS ADMINISTERED Medication Instructions Date of Administration Dosag e BICILLIN LA/PENICILLIN G BENZATHINE 19 Ju n, 2019 1.2
--- OUTSIDE RECORDS SUMMARY | 2023-09-04 10:31 | XMS REPORT ---
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 Apr, confirmed 20719794 -04474 4_Migr ated Problem Chewing tobacco nicotine dependence, uncomplicated F17.220 17 Jul, 2015 confirmed 717844139 -75939 4_Migr ated Problem Dyspnea on exertion R06.09 Jul, confirmed 83740789 -04020 4_Migr ated Problem Cardiomyopath y I42.9 May, confirmed 37557443 -91008 4_Migr ated Problem Pure hypercholeste rolemia E78.00 confirmed 789645440 Problem 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.9 confirmed 766389310 Problem Essential hypertension I10 confirmed 74799355 Problem Gastro-esopha geal reflux disease without esophagitis K21.9 confirmed 098254665 Problem Primary osteoarthriti s of both knees M17.0 confirmed 463709145 Problem 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 confirmed 678695689 Problem Type 2 diabetes mellitus with complication, unspecified whether long lines operator insulin use E11.8 confirmed 717974987 Problem Mediastinal lymphadenopat hy R59.0 10 Aug, 2016 confirmed 85178280 97112 4_Migr ated Problem Primary insomnia F51.01 confirmed 9230471 Problem Angina at rest I20.8 confirmed 898650137 Problem Primary osteoarthriti s of left knee M17.12 15 Jan, 2016 confirmed 585895610 10546 4_Migr ated Problem Morbid obesity E66.01 confirmed 857914304 Problem Type 2 diabetes mellitus with hyperglycemia E11.65 confirmed 239884 1871 22822 Problem Chronic obstructive pulmonary disease, unspecified J44.9 confirmed 91384848 Problem Recurrent major depressive disorder, remission status unspecified F33.9 confirmed 50643268 ALLERGIES No Known Allergies ENCOUNTERS from 1975 to 2023-03-08 Encounter Location Date Provider [facility] [id number] [place] [address] March, HOLLY MURPHY Encounter for immunization Z23 IMMUNIZATIONS Vaccine Route Administration Date Status PRIVATE [...] IM Intramuscular Aug 03, 2020 Administered PRIVATE TDAP (BOOSTRIX) IM Intramuscular June [...] Duration) Notes Start Date End Date Status Atorvastatin Calcium 10 MG TAKE ONE (1) TABLET BY MOUTH ONCE DAILY for 90 days Active Montelukast Sodium 10 MG TAKE ONE (1) TABLET BY MOUTH ONCE DAILY for 90 Active Aspirin 81 MG 1 tablet Orally Once a day for 30 days Feb, Active Glucocard Expression Test - TEST FASTING BLOOD SUGAR AND TWO (2) HOURS AFTER A MEAL THREE (3) TIMES WEEKLY. for 58 Active Meloxicam 7.5 MG TAKE ONE (1) TABLET BY MOUTH ONCE DAILY for 30 Active Garlic 1000 MG 1 capsule Orally Once a day Active Lisinopril 10 MG TAKE ONE (1) TABLET BY MOUTH ONCE DAILY Orally Once a day for 90 days Active GlucaGen HypoKit 1 MG Inject 1mg subcutaneous as needed for severe hypoglycemia. May repeat in 15 minutes if no response. PRN low bs Apr, Active traZODone HCl 50 MG 1 tablet at bedtime as needed Orally Once a day for 30 day(s) Nov, Not-Taking Ventolin HFA 108 (90 Base) MCG/ACT 2 puffs as needed Inhalation every 6 hrs for 25 PRn Not-Taking Carvedilol 3.125 MG 1 tablet Orally Twice a day for 30 days Active Invokamet XR 150-1000 MG 2 tablets with the morning meal Orally Once a day for 90 days Active Vitamin D3 25 MCG (1000 UT) 1 capsule Orally Once a day Active HumaLOG KwikPen 100 UNIT/ML 24 units of insulin with each meal. (Patient states he has been taking 22 units with each meal) Subcutaneous three times a day for 30 days Feb, Active Vitamin C 1000 MG 1 tablet Orally Once a day for 30 day(s) Active Soliqua 100-33 UNT-MCG/ML 32 units Subcutaneous daily for 90 days states dec 30 units Jan, Active Glucocard Expression Monitor w/Device as directed May, Active Cyclobenzaprine HCl 10 MG TAKE ONE (1) TABLET BY MOUTH THREE (3) TIMES DAILY NEEDED for 10 Active Blood Pressure Cuff - as directed Asset tag # [id number] Active REASON FOR VISIT COVID-19 Vaccine Dose 2 ANTHONY Neff MEDICAL (GENERAL) HISTORY Type Description Date Medical History Osteoarthritis Medical History Type 2 diabetes mellitus Medical History Obesity Medical History Cardiomyopathy Medical History Dyspnea Medical History Lymphadenopathy Surgical History Sinus Surgery Surgical History appendix removed Hospitalization History lymph nodes swollen MENTAL STATUS No Information ASSESSMENTS Encounter Date Diagnosis Assessment Notes Treatment Notes Treatment Clinical Notes March, Encounter for immunization (ICD-10 - Z23) PLAN OF TREATMENT Medication Medication Name Sig Start Date Stop Date HumaLOG KwikPen 100 UNIT/ML 24 units of insulin with each meal. (Patient states he has been taking 22 units with each meal) Subcutaneous three times a day for 30 days Feb, Next Appt Details Provider Name:JUAN FRANCISCO KELLEY , 2023-04-03 10:00:00 AM, [address] [place], [address], Provider Name:ANATOLY BALLARD , 2023-06-06 08:45:00 AM, [address] [place], [address], Insurance Providers Payer Name Payer Address Payer Phone Insured Name Patient Relationship to Insured Coverage Start Date Coverage End Date Subscriber Number Group Number MARLON [email or web address] SKYGEN 19 [employer] [facility] [address] [email or web address] [facility] [address] Carlos Sarkar Self - patient is the insured 0 [id number] [facility] 19 [address] [address] [facility] [address] Carlos Sarkar Self - patient is the insured 0 [id number] MEDICATIONS ADMINISTERED Medication Instructions Date of Administration Dosag e BICILLIN LA/PENICILLIN G BENZATHINE 19 n, 2018 1.2
== END 2023-09-03 14:32 | disposition home or self-care (01) | DRG 417 ==
LOC: EDUNIT# 12:37 → ER FS 12:39 → ICU 15:58 → INTOOBSV 15:58 → UNDOADMOB 15:58 → ICU 20:18 → OBSVTOIN 20:18 → INTOOBSV 20:18 → 4TH 08-31 16:49 → ICU 08-31 16:49 → UNDODISIN 09-03 14:32
PROVIDERS: ADMIT Family Medicine; ATTEND Internal Medicine
PROC: BF031ZZ Plain Radiography of Gallbladder and Bile Ducts using Low Osmolar Contrast (ICD-10-PCS; 2023-09-02)
PROC: 0FT44ZZ Resection of Gallbladder, Percutaneous Endoscopic Approach (ICD-10-PCS; principal; 2023-09-02 12:56)
DX: K81.0 Acute cholecystitis (principal); E11.10 Type 2 diabetes mellitus with ketoacidosis without coma; E87.1 Hypo-osmolality and hyponatremia; N39.0 Urinary tract infection, site not specified; K82.1 Hydrops of gallbladder; I42.9 Cardiomyopathy, unspecified; N17.9 Acute kidney failure, unspecified; E87.5 Hyperkalemia; K81.1 Chronic cholecystitis; E86.0 Dehydration; K21.9 Gastro-esophageal reflux disease without esophagitis; I10 Essential (primary) hypertension; E78.00 Pure hypercholesterolemia, unspecified; I95.9 Hypotension, unspecified; I25.10 Atherosclerotic heart disease of native coronary artery without angina pectoris; M19.90 Unspecified osteoarthritis, unspecified site; Z79.4 Long term (current) use of insulin; Z79.899 Other long term (current) drug therapy; Z79.82 Long term (current) use of aspirin; Z79.84 Long term (current) use of oral hypoglycemic drugs; E87.8 Other disorders of electrolyte and fluid balance, not elsewhere classified; Z91.148 Patient's other noncompliance with medication regimen for other reason
CPT/HCPCS: 36415; 71045; 74176; 76000; 76705; 80048; 80053; 81000; 82010; 82805; 82947; 83036; 83605; 83690; 83735; 84100; 84484; 85007; 85025; 85027; 85610; 85730; 87040; 87081; 87088; 87636; 88304; 96361; 96365; 96375